=== PATIENT | male | born 1955 | race Caucasian/White ===

== ENCOUNTER → 2019-12-08 11:21 | Outpatient (CLI) | payer OTHER, SELFPAY ==
--- NOTE | ~2019-12-08 | XR_ITS ---
XR chest 2V 12/08/2019 11:37 Indication: Shortness of breath. Asthma. Procedure: 2 view chest Comparison: Comparison to multiple prior studies sequentially, with oldest reviewed study dated Andres rison to multiple prior studies sequentially, with oldest reviewed study dated 11/08/2015. . Findings: Ill-defined diffuse airspace disease throughout both lungs which appears chronic. Pleural e ffusion or pneumothorax. Enlarged central pulmonary arteries. Impression: 1: Stable diffuse bilateral airspace disease. Differential diagnosis includes atypical infections, sa rcoidosis, alveolar proteinosis and lymphoma. Reviewed, dictated and finalized at location B. IER Impression: 1: Stable diffuse bilateral airspace disease. Differential diagnosis includes a typical infections, sarcoidosis, alveolar proteinosis and lymphoma.
== END ==
PROVIDERS: PCP Internal Medicine Pulmonary Disease; Visit Provider Internal Medicine Pulmonary Disease
DX: J44.9 Chronic obstructive pulmonary disease, unspecified (principal); J45.909 Unspecified asthma, uncomplicated; R06.02 Shortness of breath; R91.8 Other nonspecific abnormal finding of lung field
CPT/HCPCS: 71046

== ENCOUNTER 2020-02-09 07:50 | Outpatient (RCR) | payer OTHER, SELFPAY ==
--- NOTE | 2020-02-02 09:11 | PM.IMHP ---
H&P: HPI History of Present Illness Chief complaint: T87.89 complication of amputation site, L89.899 Narrative: Terry Taveras is a 64 year old male presents to [facility] wound clinic for follow-up of right below-knee amputation wound stump infection, follow-up for left diabetic foot deformity and right wrist Charcot arthropathy. Patient developed redness and breakdown of the skin over the popliteal fossa right leg approximately 2 weeks ago. There had been some changes to his prosthetic and he had rubbing of the skin. His prosthetic inserts were adjusted and this has improved. He was started on mupirocin ointment as well as foam dressing covering for the wounds. He has noted improvement over the past week. No fever or chills. Left foot deformity with instability with weight-bearing and pain. Unable to use his fracture boot and custom ankle brace. Continues with the custom insert. Right wrist deformity unchanged. Still with weakness in the hand numbness on the palmar aspect and itching. States that pain is much better after the injection and with use of the splint. Review of Systems Constitutional: Constitutional: Denies fever(s) Eyes: Eyes: Denies blurry vision ENT: Reports Normal hearing present Cardiovascular: Cardiovascular: Denies chest pain and Denies dyspnea Respiratory: Respiratory: Denies dyspnea and Denies wheezing Gastrointestinal: Gastrointestinal: Denies abdominal pain Genitourinary: Genitourinary: Denies urinary urgency Musculoskeletal: Musculoskeletal: Reports as per HPI and Reports numbness Integumentary/Breasts: Skin/Breast: Denies changing lesions and Denies sores Neurologic: Reports Normal hearing present, Denies behavioral changes, Denies confusion, Reports numbness and Denies convulsions Psychiatric: Psychiatric: Denies behavioral changes, Denies confusion and Denies hallucinations Endocrine: Endocrine: Denies heat intolerance Hematologic/Lymphatic: Hematologic/Lymphatic: Denies easy bleeding Allergic/Immunologic: Allergic/Immunologic: Denies wheezing PMFSH Past Medical History Medical History 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 Below-knee amputation of right lower extremity Carpal tunnel syndrome on both sides Convex pes valgus of left foot COPD (chronic obstructive pulmonary disease) Dyspnea Prostate cancer Sleep apnea Vision loss Surgical History Surgical History Hx of BKA Hx of transurethral resection of prostate Family History Family History Father Hypertension Family history of diabetes mellitus in first degree relative Family history of emphysema Diabetes mellitus Family history of chronic obstructive pulmonary disease Sibling Family history of heart disease in male family member before age 55 Family history of cardiovascular disease, Onset Age: 50 Acute myocardial infarction, Onset Age: 50 Mother Family history of osteoarthritis Family history of arthritis Grandparent Family history of liver disease Family history of condition Family history of malignant neoplasm of cervix Family history of coronary artery disease Family history of cardiovascular disease Family history of malignant neoplasm Other Family history of alcoholism Social History Social History Smoking status: Former smoker Smoking end date: 10/04/10 Alcohol intake: current Substance use: unknown Gender identity (if verbalized by the patient): Male Spiritual care concerns: No Meds Home Medications and Allergies Home Medications Medication Instructions Recorded Confirmed Type albuterol sulfate [Ventolin HFA] 2 puff INHALATION QID PRN 08/22/19 08/22/19 History amlodipine 5 mg PO DAILY 08/22/19 08/22/19 History ch
[2020-02-02 13:00] VITALS: BMI 33.8
== END 2020-05-02 23:59 | disposition home or self-care (01) ==
LOC: ANHWOC 07:50
PROVIDERS: PCP Family Medicine; Visit Provider Family Medicine
DX: T87.89 Other complications of amputation stump (principal); L89.899 Pressure ulcer of other site, unspecified stage
CPT/HCPCS: 99212; G0463

== ENCOUNTER 2020-07-08 12:14 | Outpatient (CLI) | payer OTHER, SELFPAY ==
[2020-07-08 12:51] LABS: Basophils Absolute Auto 0.1 K/mm3 (0.0-0.1); Basophils Percent Auto 1.2 % (0.2-1.2); Eosinophils Absolute Auto 0.3 K/mm3 (0-0.3); Eosinophils Percent Auto 4.2 % (0-4.4); Hematocrit 36.3 % (42.0-52.0); Hemoglobin 12.3 g/dL (14.0-18.0); Immature Granulocyte Absolute 0.02 K/mm3 (0.00-0.031); Immature Granulocyte Percent A 0.3 % (0-0.5); Lymphocytes Absolute Auto 1.35 K/mm3 (0.9-3.2); Mean Corpuscular HGB Conc 33.9 g/dl (32-36); Mean Corpuscular Hemoglobin 27.8 pg (26-34); Mean Corpuscular Volume 82.1 fl (80-100); Mean Platelet Volume 9.9 fl (7.4-10.4); Monocytes Absolute Auto 0.4 K/mm3 (0.1-0.6); Monocytes Percent Auto 5.9 % (2.6-8.5); Neutrophils Absolute Auto 4.6 K/mm3 (1.3-6.7); Neutrophils Percent Auto 68.4 % (45.5-73.1); Platelet Count Result 207 k/mm3 (150-375); Red Blood Count 4.42 M/mm3 (4.6-6.20); Red Cell Distribution Width 12.7 % (11.5-14.5); White Blood Count 6.7 K/mm3 (4.5-10.0)
[2020-07-08 13:00] LABS: Alanine Aminotransferase 9 U/L (4-50); Albumin Level 3.9 g/dL (3.5-5.1); Alkaline Phosphatase 49 U/L (38-126); Anion Gap 5 mmol/L (8-16); Aspartate Amino Transferase 15 U/L (17-59); Bilirubin,Total 0.5 mg/dL (0.2-1.3); Blood Urea Nitrogen 10 mg/dL (9-20); Calcium 9.6 mg/dL (8.4-10.2); Carbon Dioxide 27 mmol/L (22-30); Chloride 105 mmol/L (98-107); Estimated Glomerular Filt Rate > 60; Glucose 97 mg/dL (75-110); Potassium 3.7 mmol/L (3.4-5.0); Sodium 137 mmol/L (137-145)
[2020-07-08 13:01] LABS: Hemoglobin A1C 5.7 % (<5.7)
== END 2020-07-08 12:15 | disposition home or self-care (01) ==
LOC: ANHSURGERY 12:17
PROVIDERS: PCP Family Medicine; Visit Provider Orthopaedic Surgery
DX: I27.20 Pulmonary hypertension, unspecified (principal); G98.8 Other disorders of nervous system; M14.83 Arthropathies in other specified diseases classified elsewhere, wrist; Z79.899 Other long term (current) drug therapy
CPT/HCPCS: 36415; 80053; 83036; 85025

== ENCOUNTER 2020-07-09 02:28 | Outpatient (CLI) | payer OTHER, SELFPAY ==
[2020-07-10 14:31] LABS: SARS-CoV-2 RNA PCR Negative
== END 2020-07-09 02:29 | disposition home or self-care (01) ==
LOC: ANHCOVIDDT 02:29
PROVIDERS: PCP Family Medicine; Visit Provider Orthopaedic Surgery
DX: Z01.812 Encounter for preprocedural laboratory examination (principal); Z20.828 Contact with and (suspected) exposure to other viral communicable diseases
CPT/HCPCS: 87635; C9803; U0003

== ENCOUNTER 2020-07-11 00:22 | Day surgery (SDC) | payer OTHER, SELFPAY ==
[2020-07-05 15:50] VITALS: BMI 32.1
--- NOTE | 2020-07-10 14:50 | WPDANESEPPF ---
Anes - Initial Pre Proc Eval Procedure: Operation Date: 07/11/20 07:30 Proposed Procedures p Right Wrist Arthrodesis - Alexis Cassidy MD Date/Time: 07/10/20 14:50 Surgeon: Alexis Cassidy MD Pre Op Diagnosis: Right Wrist Pain/ Arthropathy Patient Data Age: 65 Gender: M Height: 1.73 m Weight: 95.71 kg Allergies Allergy/AdvReac Type Severity Reaction Status Date / Time atropine Allergy Unknown EYE Verified 07/05/20 15:21 SWELLING Home Medications Medication Instructions Recorded Confirmed Type albuterol sulfate [Ventolin HFA] 2 puff INHALATION QID PRN 08/22/19 07/05/20 History amlodipine 5 mg PO DAILY 08/22/19 07/05/20 History cholecalciferol (vitamin D3) 2,000 unit PO DAILY 08/22/19 07/05/20 History [Vitamin D3] fluticasone furoate-vilanterol 1 inh INHALATION DAILY 08/22/19 07/05/20 History [Breo Ellipta] omeprazole 20 mg PO DAILY PRN 08/22/19 07/05/20 History tadalafil (pulm. hypertension) 40 mg PO BID 08/22/19 07/05/20 History [Adcirca] vitamin B complex 1 tablet PO DAILY 08/22/19 07/05/20 History bumetanide 1 mg tablet 1 mg PO DAILY #60 tablet 11/13/19 07/05/20 Rx spironolactone 50 mg tablet 50 mg PO DAILY #30 tablet 11/13/19 07/05/20 Rx leflunomide 20 mg tablet 20 mg PO DAILY #30 tablet 12/01/19 07/05/20 Rx guaifenesin 1,200 mg tablet, 1,200 mg PO BID PRN 12/05/19 07/05/20 History extended release 12 hr mupirocin 2 % topical ointment 1 applic TOPICAL BID #15 gm 01/26/20 07/05/20 Rx indomethacin 25 mg capsule 50 mg PO BID #120 cap 04/29/20 07/05/20 Rx gabapentin 300 mg PO QAM PRN 07/05/20 07/05/20 History trazodone 100 mg PO .QHS 07/05/20 07/05/20 History Patient hx anesthesia problems: none Family hx anesthesia problems: none PMFSH Past Medical History Medical History (Updated 07/10/20 @ 14:50 by Adam Grant DO) 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 Below-knee amputation of right lower extremity Carpal tunnel syndrome on both sides Convex pes valgus of left foot COPD (chronic obstructive pulmonary disease) Dyspnea Prostate cancer Pulmonary HTN Rheumatoid arthritis, seronegative, multiple sites (~2018) Sleep apnea Type 2 diabetes mellitus with diabetic neuropathy, with long-term current use of insulin Vision loss Surgical History Surgical History Hx of BKA Hx of transurethral resection of prostate Family History Family History Father Hypertension Family history of diabetes mellitus in first degree relative Family history of emphysema Diabetes mellitus Family history of chronic obstructive pulmonary disease Sibling Family history of heart disease in male family member before age 55 Family history of cardiovascular disease, Onset Age: 50 Acute myocardial infarction, Onset Age: 50 Mother Family history of osteoarthritis Family history of arthritis Grandparent Family history of liver disease Family history of condition Family history of malignant neoplasm of cervix Family history of coronary artery disease Family history of cardiovascular disease Family history of malignant neoplasm Other Family history of alcoholism Social History Social History Smoking packs per day: 1 Smoking cigarettes per day: 20.0 Years smoked: 30 Smoking pack-years: 30.00 Smoking status: Never smoker Smoking end date: 10/04/11 Alcohol intake: current Alcohol use details: ONE-TWO DRINKS PER MONTH [place] Substance use: current Living arrangements: with family Gender identity (if verbalized by the patient): Male Spiritual care concerns: No Anes - Eval Final PreProcedure Day of Procedure 07/10/20 14:50 Patient weight: obese Heart: regular rate and rhythm Lungs: clear to auscultation and normal air movement Airway: Mallampati scale class II
[2020-07-11] VITALS (7 sets, daily range): BP systolic 109–137; BP diastolic 66–96; PULSE 58–69; RESP 14–18; TEMP 36.2–36.7; O2SAT 94–99
--- NOTE | ~2020-07-11 | XR_ITS ---
EXAMINATION: XR surgery orthopedic EXAM DATE: 07/11/2020 09:22 INDICATION: Right wrist arthrodesis. TECHNIQUE: Fluoroscopy used during right wrist arthrodesis performed by Dr. Alexis Cassidy MD. T he DAP for this procedure was 0.0035 mGym2. FINDINGS: Images demonstrate an orthopedic plate with supporting screws extending across the carpal region, internally fixing the wrist from the radius to the 3rd metacarpal. Severe carpal arthritic ch denise noted. Correlate with procedure note. IMPRESSION: Fluoroscopy used during right wrist arthrodesis. Reviewed, dictated and finalized at location B.
[2020-07-11] MEDS: LACTATED RINGERS 1,000 ML 30 ML IV CONT ×2 (07:16→09:48)
[2020-07-11] MEDS: KETOROLAC 15 MG/ML VIAL (*BKC) IV PUSH (07:17)
[2020-07-11] MEDS: ACETAMINOPHEN 500 MG TABLET 1000 MG PO (07:17)
--- NOTE | 2020-07-11 07:28 | WPDHPUPDATE1 ---
History and Physical Update Update Date/Time: 07/11/20 07:28 History and Physical has been reviewed, including an updated exam of the patient. There are NO changes in the patient's condition. Covid test negative. Risks, benefits, and alternatives have been discussed and questions answered. Patient agrees to proceed with procedure.
--- NOTE | 2020-07-11 07:30 | PM.IMHP ---
H&P: HPI History of Present Illness Date/Time: 07/11/20 07:30 Chief complaint: Right Wrist Pain/ Arthropathy Narrative: Terry Taveras is a 65 year old maleWith diabetes and peripheral neuropathy who has deformity, swelling and pain of the right wrist. He has undergone conservative treatment bracing, cortisone injection, medical management and continues to have dysfunction and problems with the right hand which is the dominant hand. He presents now for operative treatment. Review of Systems Constitutional: Constitutional: Denies fever(s) Eyes: Eyes: Denies blurry vision ENT: Reports Normal hearing present Cardiovascular: Cardiovascular: Denies chest pain and Denies dyspnea Respiratory: Respiratory: Denies dyspnea and Denies wheezing Gastrointestinal: Gastrointestinal: Denies abdominal pain Genitourinary: Genitourinary: Denies urinary urgency Musculoskeletal: Musculoskeletal: Reports as per HPI and Reports numbness Integumentary/Breasts: Skin/Breast: Denies changing lesions and Denies sores Neurologic: Reports Normal hearing present, Denies behavioral changes, Denies confusion, Reports numbness and Denies convulsions Psychiatric: Psychiatric: Denies behavioral changes, Denies confusion and Denies hallucinations Endocrine: Endocrine: Denies heat intolerance Hematologic/Lymphatic: Hematologic/Lymphatic: Denies easy bleeding Allergic/Immunologic: Allergic/Immunologic: Denies wheezing PMFSH Past Medical History Medical History 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 Below-knee amputation of right lower extremity Carpal tunnel syndrome on both sides Convex pes valgus of left foot COPD (chronic obstructive pulmonary disease) Dyspnea Prostate cancer Pulmonary HTN Rheumatoid arthritis, seronegative, multiple sites (~2018) Sleep apnea Type 2 diabetes mellitus with diabetic neuropathy, with long-term current use of insulin Vision loss Surgical History Surgical History Hx of BKA Hx of transurethral resection of prostate Family History Family History Father Hypertension Family history of diabetes mellitus in first degree relative Family history of emphysema Diabetes mellitus Family history of chronic obstructive pulmonary disease Sibling Family history of heart disease in male family member before age 55 Family history of cardiovascular disease, Onset Age: 50 Acute myocardial infarction, Onset Age: 50 Mother Family history of osteoarthritis Family history of arthritis Grandparent Family history of liver disease Family history of condition Family history of malignant neoplasm of cervix Family history of coronary artery disease Family history of cardiovascular disease Family history of malignant neoplasm Other Family history of alcoholism Social History Social History Smoking packs per day: 1 Smoking cigarettes per day: 20.0 Years smoked: 30 Smoking pack-years: 30.00 Smoking status: Never smoker Smoking end date: 10/04/11 Alcohol intake: current Alcohol use details: ONE-TWO DRINKS PER MONTH [place] Substance use: current Living arrangements: with family Gender identity (if verbalized by the patient): Male Spiritual care concerns: No Meds Home Medications and Allergies Home Medications Medication Instructions Recorded Confirmed Type albuterol sulfate [Ventolin HFA] 2 puff INHALATION QID PRN 08/22/19 07/05/20 History amlodipine 5 mg PO DAILY 08/22/19 07/05/20 History cholecalciferol (vitamin D3) 2,000 unit PO DAILY 08/22/19 07/05/20 History [Vitamin D3] fluticasone furoate-vilanterol 1 inh INHALATION DAILY 08/22/19 07/05/20 History [Breo Ellipta] omeprazole 20 mg PO DAILY PRN 08/22/19 07/05/20 History t
[2020-07-11] MEDS: ceFAZolin 2 GM/D5W 50 ML 2 GM/50 ML BAG IVPB (07:35)
[2020-07-11 09:52] LABS: Glucose Point of Care 137 (65-105)
[2020-07-11] MEDS: fentaNYL CITRATE INJ (*CRX) 100 MCG/2 ML VIAL 25 MCG IV PUSH ×2 (10:00→10:09)
--- NOTE | 2020-07-11 10:04 | PM.PROC ---
Procedure Note - Detailed Date of procedure: 07/11/20 Pre-op diagnosis: Right Wrist Pain/ Arthropathy Post-op diagnosis: same Procedure performed: Right wrist arthrodesis Description of procedure: Indications: Patient is a 65-year-old gentleman with type 2 diabetes and severe peripheral neuropathy who has severe neuropathic arthropathy of the right wrist with volar dislocation. Patient has failed conservative treatment cortisone injection, bracing, activity modification and medical treatment. Presents for operative treatment. What was done: Patient identified in the preoperative holding. Informed consent given. Operative extremity marked. Patient received intravenous antibiotics. Patient brought to the operating room where underwent general anesthetic by anesthesia team. Positioned supine on operating room table. Time-out performed confirming the patient, site of the surgery and the plan. Right upper extremity prepped draped usual sterile surgical fashion using a ChloraPrep skin solution. Hand and wrist exsanguinated and an arm tourniquet inflated to 250 mmHg. Dorsal longitudinal incision made from the distal radius to the 3rd metacarpal with a 15 blade knife. Hemostasis controlled electrocautery. Dorsal wrist retinaculum incised in line with skin incision. Extensor pollicis identified and released. Capsule over the wrist incised in line with skin incision. Retractors placed. There was noted to be severe destruction of the intercarpal joints as well as volar subluxation /dislocation of the proximal carpal row. There is no attachment to the proximal carpal row bones and these were removed and denuded to be used as bone graft. The remaining joints were then prepared with osteotome and rongeur. Thorough irrigation with solution. Aloe matrix bone putty and the carpal bones were then prepared on the back table and packed into the radial carpal joint. A large cyst in the distal radius was also noted which was excised and removed with a curette. Bone putty was packed into this area as well. Alignment was checked with image intensification. Neutral plate was then used for compression and stabilization from the distal radius to the 3rd metacarpal. Image intensification confirmed alignment and placement of the hardware. Good compression. Wound was thoroughly irrigated antibiotic solution. Capsule repaired with 2 Vicryl suture. Subcutaneous tissue repaired with 3 Monocryl Interrupted suture and skin repaired with 4 O nylon running suture. Sterile dressing applied. The patient was then woken from anesthesia, extubated and taken to the recovery room in stable condition. All sponge, needle, instrument counts were correct at the end of the case. Implants: Accu Med neutral wrist fusion plate, 2.0 mm screws distal and 3.5 mm screws proximal Anesthesia: GLMA Surgeon: Alexis Cassidy MD Vice President Quality: 1st occupational therapy assistant Estimated blood loss (mL): 15 Tourniquet time (min): 100 Drains: No Packing: No Pathology: yes ( Wrist synovium and carpal bone for permanent section.) Complications: None Condition: stable Disposition: PACU Findings: severe arthropathy of the right wrist with dislocation and destruction of the proximal row including the lunate, scaphoid And triquetrum.
[2020-07-11] MEDS: oxyCODONE HCL (*CRX) 5 MG TAB IR PO (11:02)
== END 2020-07-11 11:29 | disposition home or self-care (01) ==
PROVIDERS: PCP Family Medicine; Visit Provider Orthopaedic Surgery
PROC: (CPT 25575; principal; 2020-07-11 07:30)
DX: M19.031 Primary osteoarthritis, right wrist (principal); E11.610 Type 2 diabetes mellitus with diabetic neuropathic arthropathy; J44.9 Chronic obstructive pulmonary disease, unspecified; I27.20 Pulmonary hypertension, unspecified; M06.9 Rheumatoid arthritis, unspecified; G47.30 Sleep apnea, unspecified; Z89.511 Acquired absence of right leg below knee; E66.9 Obesity, unspecified; Z68.32 Body mass index [BMI] 32.0-32.9, adult; Z85.46 Personal history of malignant neoplasm of prostate; Z79.4 Long term (current) use of insulin
CPT/HCPCS: 25800; 88309; A9270; C1713; J0690; J1885; J2405; J2704; J3010; J7120

== ENCOUNTER 2020-09-13 09:41 | Outpatient (CLI) | payer OTHER, SELFPAY ==
[2020-09-13 09:57] LABS: Basophils Absolute Auto 0.1 K/mm3 (0.0-0.1); Basophils Percent Auto 1.1 % (0.2-1.2); Eosinophils Absolute Auto 0.3 K/mm3 (0-0.3); Eosinophils Percent Auto 4.8 % (0-4.4); Hematocrit 36.6 % (42.0-52.0); Hemoglobin 12.2 g/dL (14.0-18.0); Immature Granulocyte Absolute 0.01 K/mm3 (0.00-0.031); Immature Granulocyte Percent A 0.2 % (0-0.5); Lymphocytes Absolute Auto 1.17 K/mm3 (0.9-3.2); Lymphocytes Percent Auto 20.8 % (18.3-44.2); Mean Corpuscular HGB Conc 33.3 g/dl (32-36); Mean Corpuscular Hemoglobin 27.5 pg (26-34); Mean Corpuscular Volume 82.4 fl (80-100); Monocytes Absolute Auto 0.4 K/mm3 (0.1-0.6); Monocytes Percent Auto 6.6 % (2.6-8.5); Neutrophils Absolute Auto 3.8 K/mm3 (1.3-6.7); Neutrophils Percent Auto 66.5 % (45.5-73.1); Platelet Count Result 243 k/mm3 (150-375); Red Blood Count 4.44 M/mm3 (4.6-6.20); White Blood Count 5.6 K/mm3 (4.5-10.0)
[2020-09-13 12:40] LABS: Alanine Aminotransferase 10 U/L (4-50); Albumin Level 4.1 g/dL (3.5-5.1); Alkaline Phosphatase 56 U/L (38-126); Anion Gap 9 mmol/L (8-16); Aspartate Amino Transferase 16 U/L (17-59); Bilirubin,Total 0.5 mg/dL (0.2-1.3); Blood Urea Nitrogen 14 mg/dL (9-20); Carbon Dioxide 25 mmol/L (22-30); Chloride 104 mmol/L (98-107); Cholesterol 164 mg/dL (0-200); Estimated Glomerular Filt Rate > 60; Glucose 113 mg/dL (75-110); HDL Direct 58 mg/dL; Potassium 4.2 mmol/L (3.4-5.0); Sodium 138 mmol/L (137-145); Triglycerides 70 mg/dL (<150)
[2020-09-13 12:52] LABS: LDL Cholesterol Direct 92 mg/dL
[2020-09-13 12:55] LABS: Hemoglobin A1C 5.5 % (<5.7)
[2020-09-13 13:10] LABS: Prostate Specific Antigen < 0.1 ng/mL (< OR = 4.0)
== END 2020-09-13 09:42 | disposition home or self-care (01) ==
PROVIDERS: PCP Family Medicine; Visit Provider Family Medicine
DX: R63.4 Abnormal weight loss (principal); E11.40 Type 2 diabetes mellitus with diabetic neuropathy, unspecified; Z79.4 Long term (current) use of insulin; E11.9 Type 2 diabetes mellitus without complications; N40.0 Benign prostatic hyperplasia without lower urinary tract symptoms
CPT/HCPCS: 36415; 80053; 80061; 83036; 84153; 84439; 84443; 85025; G0103

== ENCOUNTER 2020-11-27 14:17 | Outpatient (CLI) | payer OTHER, SELFPAY ==
--- NOTE | 2020-11-27 | ECHO_ITS ---
Patient Info Name: Terry Taveras Age: 65 years : 1955 Gender: Male Ht: 68 in Wt: 214 lbs BSA: 2.19 m2 HR: 69 bpm BP: 142 / 83 mmHg Heart Rhythm: Sinus Rhythm Technical Quality: Good Exam Date: 11/27/2020 2:47 PM Exam Location: [facility] Patient Status: Outpatient Admit Date: 11/27/2020 Staff Ordering Physician: Esperanza, Darek Ayers MD Wharf Tender: Lesa Hassan RDCS Attending Provider: Esperanza, Darek Ayers MD Referring Physician: Antonio CASTELLANO; Exam Type: CA echo doppler color flow Study Info Indications - hx/o pulm htn sob Complete two-dimentional, color flow and Doppler transthoracic echocardiogram is performed with agitated saline and with contrast to opacify the left ventricle and to improve the delineation of the left ventricle endocardial borders. Complete two-dimensional, color flow and Doppler transthoracic echocardiogram is performed. Summary 1. Complete two-dimensional, color flow and Doppler transthoracic echocardiogram is performed. 2. Left ventricular systolic function is normal, estimated at 60-65%. 3. There is mildly increased left ventricular wall thickness. 4. The left ventricular diastolic function is grade I diastolic dysfunction. 5. D shaped septum in systole and diastole consistent with RV pressure and/or volume overload. 6. Right ventricular chamber dimension is mildly enlarged. 7. Right ventricular systolic function is mild to moderately reduced. 8. Right atrial chamber dimension is severely enlarged. 9. There is mild tricuspid valve regurgitation. 10. Severe pulmonary hypertension, estimated pulmonary arterial systolic pressure is 79 mmHg. 11. Normal inferior vena cava with <50% collapse upon inspiration consistent with elevated right atrial pressure, 10 mmHg. 12. There is small pericardial effusion. Left Ventricle Left ventricular chamber dimension is normal. Left ventricular systolic function is normal, estimated at 60-65%. There is mildly increased left ventricular wall thickness. The left ventricular diastolic function is grade I diastolic dysfunction. D shaped septum in systole and diastole consistent with RV pressure and/or volume overload. Right Ventricle Right ventricular chamber dimension is mildly enlarged. Right ventricular systolic function is mild to moderately reduced. Left Atria Left atrial chamber dimension is mildly enlarged. Right Atria Right atrial chamber dimension is severely enlarged. Aortic Valve The aortic valve is not well visualized. There is no aortic valve stenosis. There is no aortic valve regurgitation. Pulmonic Valve The pulmonic valve is not well visualized. Mitral Valve The mitral valve has thickened leaflets. There is trace mitral valve regurgitation. The mitral valve annulus is mildly calcified. Tricuspid Valve The tricuspid valve leaflets are normal. There is mild tricuspid valve regurgitation. Severe pulmonary hypertension, estimated pulmonary arterial systolic pressure is 79 mmHg. Pericardium/Pleural The pericardium appears normal. There is small pericardial effusion. Inferior Vena Cava Normal inferior vena cava with <50% collapse upon inspiration consistent with elevated right atrial pressure, 10 mmHg. Aorta The aortic root size at the sinus of Valsalva is normal. There is mild-moderate aortic atherosclerosis. Left Ventricular Outflow Tract Name
== END 2020-11-27 14:18 | disposition home or self-care (01) ==
PROVIDERS: PCP Family Medicine; Visit Provider Internal Medicine Pulmonary Disease
DX: R05 Cough (principal); R06.02 Shortness of breath; I51.7 Cardiomegaly; I27.20 Pulmonary hypertension, unspecified
CPT/HCPCS: 93306

== ENCOUNTER 2020-12-03 10:54 | Outpatient (CLI) | payer OTHER, SELFPAY | END 2020-12-03 10:55 | disposition home or self-care (01) | LOC: ANHCOVIDVC 10:54 | PROVIDERS: PCP Family Medicine; Visit Provider Family Medicine | DX: Z23 Encounter for immunization (principal) | CPT/HCPCS: 0001A; 91300 ==

== ENCOUNTER 2020-12-24 10:53 | Outpatient (CLI) | payer OTHER, SELFPAY | END 2020-12-24 10:54 | disposition home or self-care (01) | LOC: ANHCOVIDVC 10:53 | PROVIDERS: PCP Family Medicine | DX: Z23 Encounter for immunization (principal) | CPT/HCPCS: 0002A; 91300 ==

== ENCOUNTER 2021-02-11 11:58 | Outpatient (RCR) | payer OTHER, SELFPAY ==
[2021-01-07 10:49] LABS: Hematocrit 32.7 % (42.0-52.0); Hemoglobin 10.8 g/dL (14.0-18.0); Mean Corpuscular Hemoglobin 28.1 pg (26-34); Mean Corpuscular Volume 84.9 fl (80-100); Mean Platelet Volume 9.5 fl (7.4-10.4); Platelet Count Result 216 k/mm3 (150-375); Red Blood Count 3.85 M/mm3 (4.6-6.20); Red Cell Distribution Width 13.6 % (11.5-14.5); White Blood Count 5.5 K/mm3 (4.5-10.0)
[2021-01-07 12:41] LABS: Alanine Aminotransferase 17 U/L (4-50); Albumin Level 4.1 g/dL (3.5-5.1); Alkaline Phosphatase 48 U/L (38-126); Anion Gap 4 mmol/L (8-16); Aspartate Amino Transferase 22 U/L (17-59); Bilirubin,Total 0.3 mg/dL (0.2-1.3); Blood Urea Nitrogen 15 mg/dL (9-20); Calcium 9.5 mg/dL (8.4-10.2); Carbon Dioxide 23 mmol/L (22-30); Chloride 107 mmol/L (98-107); Estimated Glomerular Filt Rate > 60; Glucose 128 mg/dL (75-110); Potassium 4.5 mmol/L (3.4-5.0); Sodium 134 mmol/L (137-145)
[2021-02-11 13:01] LABS: Hemoglobin 10.5 g/dL (14.0-18.0); Mean Corpuscular HGB Conc 31.8 g/dl (32-36); Mean Corpuscular Hemoglobin 28.5 pg (26-34); Mean Corpuscular Volume 89.4 fl (80-100); Mean Platelet Volume 9.7 fl (7.4-10.4); Platelet Count Result 227 k/mm3 (150-375); Red Blood Count 3.69 M/mm3 (4.6-6.20); Red Cell Distribution Width 13.4 % (11.5-14.5); White Blood Count 5.9 K/mm3 (4.5-10.0)
[2021-02-11 13:05] LABS: Alanine Aminotransferase 11 U/L (4-50); Albumin Level 3.9 g/dL (3.5-5.1); Anion Gap 6 mmol/L (8-16); Aspartate Amino Transferase 17 U/L (17-59); Bilirubin,Total 0.1 mg/dL (0.2-1.3); Blood Urea Nitrogen 11 mg/dL (9-20); Calcium 9.5 mg/dL (8.4-10.2); Carbon Dioxide 24 mmol/L (22-30); Chloride 103 mmol/L (98-107); Estimated Glomerular Filt Rate > 60; Glucose 131 mg/dL (75-110); Sodium 133 mmol/L (137-145)
[2021-02-11 13:06] LABS: Alkaline Phosphatase 48 U/L (38-126)
== END 2021-04-07 23:59 | disposition home or self-care (01) ==
LOC: ANHLAB 11:58
PROVIDERS: PCP Family Medicine; Visit Provider Internal Medicine Pulmonary Disease
DX: I27.20 Pulmonary hypertension, unspecified (principal); Z79.899 Other long term (current) drug therapy
CPT/HCPCS: 36415; 80053; 85027

== ENCOUNTER 2021-02-28 09:52 | Outpatient (CLI) | payer OTHER, SELFPAY ==
--- NOTE | ~2021-02-28 | US_ITS ---
EXAMINATION: US venous doppler [facility] DATE: 02/28/2021 10:38 INDICATION: Left lower limb edema. TECHNIQUE: Grayscale ultrasound images without and with compression and Doppler ultrasound images of the left lower extremity veins were obtained. COMPARISON: None. FINDINGS: The visualized portions of left common femoral vein, profunda (deep) femoral vein, femoral vein, popl iteal vein, peroneal veins, posterior tibial veins, and greater saphenous vein outflow are patent. IMPRESSION: 1. No deep venous thrombosis. Reviewed, dictated and finalized at location A.
== END 2021-02-28 09:53 | disposition home or self-care (01) ==
PROVIDERS: PCP Family Medicine; Visit Provider Internal Medicine Pulmonary Disease
DX: R60.9 Edema, unspecified (principal)
CPT/HCPCS: 93971

== ENCOUNTER 2021-03-07 12:53 | Outpatient (CLI) | payer OTHER, SELFPAY ==
[2021-03-07 13:16] LABS: Basophils Absolute Auto 0.1 K/mm3 (0.0-0.1); Basophils Percent Auto 1.1 % (0.2-1.2); Eosinophils Absolute Auto 0.4 K/mm3 (0-0.3); Eosinophils Percent Auto 6.7 % (0-4.4); Hematocrit 33.1 % (42.0-52.0); Immature Granulocyte Absolute 0.01 K/mm3 (0.00-0.031); Immature Granulocyte Percent A 0.2 % (0-0.5); Lymphocytes Percent Auto 17.6 % (18.3-44.2); Mean Corpuscular HGB Conc 33.2 g/dl (32-36); Mean Corpuscular Hemoglobin 28.3 pg (26-34); Mean Corpuscular Volume 85.1 fl (80-100); Mean Platelet Volume 9.5 fl (7.4-10.4); Monocytes Absolute Auto 0.4 K/mm3 (0.1-0.6); Monocytes Percent Auto 6.7 % (2.6-8.5); Neutrophils Absolute Auto 3.8 K/mm3 (1.3-6.7); Neutrophils Percent Auto 67.7 % (45.5-73.1); Platelet Count Result 224 k/mm3 (150-375); Red Blood Count 3.89 M/mm3 (4.6-6.20); White Blood Count 5.7 K/mm3 (4.5-10.0)
[2021-03-07 16:42] LABS: Alanine Aminotransferase 10 U/L (4-50); Albumin Level 3.9 g/dL (3.5-5.1); Alkaline Phosphatase 56 U/L (38-126); Anion Gap 11 mmol/L (8-16); Aspartate Amino Transferase 17 U/L (17-59); Bilirubin,Total 0.3 mg/dL (0.2-1.3); Blood Urea Nitrogen 12 mg/dL (9-20); Calcium 9.7 mg/dL (8.4-10.2); Carbon Dioxide 20 mmol/L (22-30); Chloride 106 mmol/L (98-107); Estimated Glomerular Filt Rate > 60; Glucose 118 mg/dL (75-110); Potassium 3.8 mmol/L (3.4-5.0); Sodium 137 mmol/L (137-145)
== END 2021-03-07 12:54 | disposition home or self-care (01) ==
PROVIDERS: PCP Family Medicine; Visit Provider Family Medicine
DX: I27.20 Pulmonary hypertension, unspecified (principal); Z51.81 Encounter for therapeutic drug level monitoring; E11.40 Type 2 diabetes mellitus with diabetic neuropathy, unspecified; Z79.4 Long term (current) use of insulin
CPT/HCPCS: 36415; 80053; 85025

== ENCOUNTER 2021-04-07 11:36 | Emergency (ER) | payer OTHER, SELFPAY ==
--- NOTE | ~2021-04-07 | XR_ITS ---
EXAMINATION: XR knee LT 3V DATE: 04/07/2021 13:03 INDICATION: Left knee pain TECHNIQUE: Three views of the left knee were obtained. COMPARISON: 10/15/2013 FINDINGS: There are changes of left total knee arthroplasty. Alignment is normal. No fracture or oste ochondral lesion. There is an infrapatellar laceration with associated soft tissue swelling anteriorl y No joint effusion/synovitis. Calcified atherosclerosis is noted. IMPRESSION: 1. Soft tissue swelling and laceration of the left knee without acute osseous abnormality. Reviewed, dictated and finalized at location A. IMPRESSION: 1. Soft tissue swelling and laceration of the left knee without acute osseous a bnormality.
--- NOTE | ~2021-04-07 | XR_ITS ---
EXAMINATION: XR finger 3rd RT min 2V INDICATION: Right third finger pain, initial encounter TECHNIQUE: Four views of the right third finger are obtained. COMPARISON: 06/11/2008 FINDINGS: There is an acute, traumatic, closed, oblique fracture at the palmar base of the third midd le phalanx which extends to the proximal interphalangeal joint. The fracture involves less than 50% o f the joint space. There is cortical irregularity at the dorsal base of the third distal phalanx. The re is mild to moderate osteoarthritis of the visualized interphalangeal joints. Changes of posterior fusion from radius to third metacarpal are noted. 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 IMPRESSION: 1. Acute intra-articular fracture at the palmar base of the third middle phalanx. 2. Cortical irregularity at the dorsal base of the third distal phalanx of unclear significance, poss ibly fracture. Correlate for tenderness at this site. Reviewed, dictated and finalized at location A. IMPRESSION: 1. Acute intra-articular fracture at the palmar base of the third middle phalan x. 2. Cortical irregularity at the dorsal base of the third distal phalanx of uncl ear significance, possibly fracture. Correlate for tenderness at this site.
[2021-04-07 12:14] VITALS: BP 127/77; PULSE 69; RESP 16; TEMP 37.2; O2SAT 97
--- NOTE | 2021-04-07 13:07 | ED.WOUNDLAC ---
HPI - Wound/Laceration General Chief Complaint: Wound/Laceration Stated Complaint: Laceration L leg Time Seen by Provider: 04/07/21 12:32 Source: patient Mode of arrival: ambulatory Limitations: no limitations History of Present Illness HPI narrative: Patient is a 66-year-old male complaining of a laceration on his left knee and right hand pain after he tripped and fell landing on his left knee and right hand. Patient denies any head, neck, back or any other extremity pain/injury. Related Data Home Medications Medication Instructions Recorded Confirmed Breo Ellipta 1 inh INHALATION DAILY 08/22/19 01/01/21 albuterol sulfate [Ventolin HFA] 2 puff INHALATION QID PRN 08/22/19 01/01/21 cholecalciferol (vitamin D3) 2,000 unit PO DAILY 08/22/19 01/01/21 [Vitamin D3] omeprazole 20 mg PO DAILY PRN 08/22/19 01/01/21 vitamin B complex 1 tablet PO DAILY 08/22/19 01/01/21 guaifenesin 1,200 mg tablet, 1,200 mg PO BID PRN 12/05/19 01/01/21 extended release 12 hr bumetanide 2 mg tablet 2 mg PO DAILY 04/01/21 sildenafil (pulm.hypertension) 20 20 mg PO TID 04/01/21 mg tablet Allergies Allergy/AdvReac Type Severity Reaction Status Date / Time atropine Allergy Unknown EYE Verified 04/01/21 09:36 SWELLING eye drops Allergy Unknown Uncoded 04/07/21 12:31 Review of Systems Review of Systems: All systems reviewed & are unremarkable except as noted in HPI and below Constitutional: Constitutional: Denies body ache(s), Denies chills, Denies excessive sweating, Denies fatigue, Denies fever(s), Denies headache(s), Denies lethargy, Denies malaise, Denies weakness and Denies weight loss Eyes: Eyes: Denies blurry vision, Denies change in vision and Denies loss of vision ENT: Denies dizziness, Denies ear discharge, Denies headache(s), Denies lip swelling, Denies epistaxis, Denies nasal congestion, Denies neck pain, Denies throat swelling and Denies tongue swelling Cardiovascular: Cardiovascular: Denies chest pain, Denies chest pain at rest, Denies chest pain with activity, Denies diaphoresis, Denies rapid heart rate, Denies edema, Denies irregular heart rhythm, Denies lightheadedness, Denies palpitations, Denies dyspnea and Denies dyspnea on exertion Respiratory: Respiratory: Denies chest congestion, Denies cough, Denies hemoptysis, Denies dyspnea and Denies dyspnea on exertion Gastrointestinal: Gastrointestinal: Denies abdominal pain, Denies melena, Denies hematochezia, Denies diarrhea, Denies nausea, Denies vomiting and Denies hematemesis Musculoskeletal: Musculoskeletal: Denies abnormal gait, Denies deformity, Denies joint swelling, Denies limited range of motion, Denies neck pain and Denies numbness Neurologic: Denies Abnormal speech present, Denies abnormal gait, Denies confusion, Denies dizziness, Denies headache(s), Denies focal weakness, Denies loss of vision, Denies numbness, Denies Other visual disturbances, Denies Sensory deficit (Neuro) and Denies weakness Psychiatric: Psychiatric: Denies confusion, Denies depression, Denies auditory hallucinations, Denies homicidal ideation and Denies suicidal ideation Endocrine: Endocrine: Denies cold intolerance, Denies excessive sweating, Denies fatigue, Denies heat intolerance and Denies palpitations Hematologic/Lymphatic: Hematologic/Lymphatic: Denies easy bleeding and Denies easy bruising Allergic/Immunologic: Allergic/Immunologic: Denies lip swelling, Denies throat swelling and Denies tongue swelling PMFSH Past Medical History Medical History Arthritis of wrist, left 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
== END 2021-04-07 15:10 | disposition home or self-care (01) ==
PROVIDERS: Emergency Provider Emergency Medicine; PCP Family Medicine
DX: S81.012A Laceration without foreign body, left knee, initial encounter (principal); S62.342A Nondisplaced fracture of base of third metacarpal bone, right hand, initial encounter for closed fracture; J44.9 Chronic obstructive pulmonary disease, unspecified; I27.20 Pulmonary hypertension, unspecified; E11.9 Type 2 diabetes mellitus without complications; Z79.4 Long term (current) use of insulin; Z87.891 Personal history of nicotine dependence; W01.0XXA Fall on same level from slipping, tripping and stumbling without subsequent striking against object, initial encounter
CPT/HCPCS: 12004; 73140; 73562; 99284

== ENCOUNTER 2021-04-09 08:52 | Outpatient (CLI) | payer OTHER, SELFPAY ==
--- NOTE | ~2021-04-09 | XR_ITS ---
EXAMINATION: XR thoracic spine min 4V EXAM DATE: 04/09/2021 09:16 INDICATION: M54.9 - Dorsalgia, unspecified mid back pain. TECHNIQUE: Frontal, bilateral oblique, and lateral projections of the thoracic spine as well as later al swimmers projection of the upper thoracic spine for interpretation. There is no prior study for c omparison. FINDINGS: There is moderate diffuse loss of mid thoracic disc height, mild to moderate at the lower t horacic spine. There are no acute fractures identified. The vertebral bodies are aligned in the AP di mension. The vertebral body heights are maintained. Paraspinal soft tissue is unremarkable. Moderate to severe disc disease at T12-L1 and L1-2. The facet joints are poorly visualized. IMPRESSION: Overall moderate thoracic disc disease. Reviewed, dictated and finalized at location B.
== END 2021-04-09 08:53 | disposition home or self-care (01) ==
LOC: ANHIMG 08:56
PROVIDERS: PCP Family Medicine; Visit Provider Family Medicine
DX: M47.814 Spondylosis without myelopathy or radiculopathy, thoracic region (principal)
CPT/HCPCS: 72074

== ENCOUNTER 2021-04-09 09:35 | Outpatient (CLI) | payer OTHER, SELFPAY ==
[2021-04-09 10:12] LABS: Hematocrit 32.4 % (42.0-52.0); Hemoglobin 10.5 g/dL (14.0-18.0); Mean Corpuscular HGB Conc 32.4 g/dl (32-36); Mean Corpuscular Hemoglobin 27.5 pg (26-34); Mean Corpuscular Volume 84.8 fl (80-100); Mean Platelet Volume 9.7 fl (7.4-10.4); Platelet Count Result 205 k/mm3 (150-375); Red Blood Count 3.82 M/mm3 (4.6-6.20); Red Cell Distribution Width 12.7 % (11.5-14.5); White Blood Count 6.3 K/mm3 (4.5-10.0)
[2021-04-09 13:43] LABS: Alanine Aminotransferase 12 U/L (4-50); Albumin Level 3.9 g/dL (3.5-5.1); Alkaline Phosphatase 55 U/L (38-126); Anion Gap 9 mmol/L (8-16); Aspartate Amino Transferase 18 U/L (17-59); Bilirubin,Total 0.3 mg/dL (0.2-1.3); Blood Urea Nitrogen 13 mg/dL (9-20); Calcium 9.3 mg/dL (8.4-10.2); Carbon Dioxide 22 mmol/L (22-30); Chloride 106 mmol/L (98-107); Estimated Glomerular Filt Rate > 60; Glucose 92 mg/dL (75-110); Potassium 4.4 mmol/L (3.4-5.0); Sodium 137 mmol/L (137-145)
== END 2021-04-09 09:36 | disposition home or self-care (01) ==
PROVIDERS: Internal Medicine Pulmonary Disease; PCP Family Medicine; Visit Provider Internal Medicine Hematology & Oncology
DX: I27.20 Pulmonary hypertension, unspecified (principal); Z51.81 Encounter for therapeutic drug level monitoring; Z79.899 Other long term (current) drug therapy
CPT/HCPCS: 36415; 80053; 85027

== ENCOUNTER 2021-05-14 07:47 | Outpatient (CLI) | payer OTHER, SELFPAY ==
--- NOTE | ~2021-05-14 | DEXA_ITS ---
Bone Density Report Name: Terry Taveras Age: 66 Sex: Male Ethnicity: White Date of : 1955 Indication: height loss; cancer; asthma or emphysema; Referring Provider: Sandro Foy Study: Bone densitometry was performed. Exam Date: May 14, 2021 Accession number: [id number] Bone Density: Region BMD T-score Z-score Classification AP Spine (L1-L4) 1.289 1.8 2.5 Normal Femoral Neck (Left) 0.937 0.1 1.1 Normal Total Hip (Left) 1.128 0.6 1.1 Normal Total Hip Bilateral Avg 1.090 0.4 0.9 Normal Femoral Neck (Right) 0.901 -0.2 0.8 Normal Total Hip (Right) 1.050 0.1 0.6 Normal World Health Organization criteria for BMD impression classify patients as: Normal (T-score at or above -1.0), Osteopenia (T-score between -1.0 and -2.5), or Osteoporosis (T-score at or below -2.5). 10-year Fracture Risk: FRAX not reported because: All T-scores for Spine Total, Hip Total, Femoral Neck at or above -1.0 Clinical Information Provided by Patient: Smokes Has used the following medications: Vitamin D Has the following medical conditions: Asthma or Emphysema, Cancer Patient maximum height was 72 No regular weight bearing exercise Does not regularly consume dairy products Drinks caffeinated beverages Impression: The patient has normal bone mass. The patient has risk factors, including: smoking. Discussion: BONE DENSITY IS ABOVE THE MINIMUM DESIRABLE LEVEL AT ALL SKELETAL SITES TESTED. This patient?s bone mineral density is above the minimum desirable level (T-score -1.0 or better) at all sites measured. The patient should follow a healthful lifestyle (good nutrition with adequate calcium and vitamin D, and appropriate weight-bearing exercise). Follow-Up: Consider repeating this study in 5 years or sooner if there is some new clinical indication. Reported by: BILLY on 05/14/2021 8:10:00 AM. Reviewed, dictated and finalized at location AFilemon GASPAR
== END 2021-05-14 07:48 | disposition home or self-care (01) ==
LOC: ANHIMG 07:49
PROVIDERS: PCP Family Medicine; Visit Provider Family Medicine
DX: R29.890 Loss of height (principal)
CPT/HCPCS: 77080

== ENCOUNTER 2021-11-18 09:35 | Outpatient (CLI) | payer OTHER, SELFPAY ==
[2021-11-18 10:08] LABS: Basophils Absolute Auto 0.1 K/mm3 (0.0-0.1); Basophils Percent Auto 1.3 % (0.2-1.2); Eosinophils Absolute Auto 0.3 K/mm3 (0-0.3); Eosinophils Percent Auto 6.4 % (0-4.4); Hematocrit 39.5 % (42.0-52.0); Hemoglobin 12.7 g/dL (14.0-18.0); Immature Granulocyte Absolute 0.02 K/mm3 (0.00-0.031); Immature Granulocyte Percent A 0.4 % (0-0.5); Lymphocytes Absolute Auto 1.18 K/mm3 (0.9-3.2); Lymphocytes Percent Auto 22.1 % (18.3-44.2); Mean Corpuscular HGB Conc 32.2 g/dl (32-36); Mean Corpuscular Hemoglobin 28.9 pg (26-34); Mean Corpuscular Volume 89.8 fl (80-100); Mean Platelet Volume 9.1 fl (7.4-10.4); Monocytes Absolute Auto 0.3 K/mm3 (0.1-0.6); Monocytes Percent Auto 6.4 % (2.6-8.5); Neutrophils Absolute Auto 3.4 K/mm3 (1.3-6.7); Neutrophils Percent Auto 63.4 % (45.5-73.1); Platelet Count Result 215 k/mm3 (150-375); Red Cell Distribution Width 12.6 % (11.5-14.5); White Blood Count 5.3 K/mm3 (4.5-10.0)
[2021-11-18 12:14] LABS: Prostate Specific Antigen < 0.1 ng/mL (< OR = 4.0)
[2021-11-18 12:44] LABS: Alanine Aminotransferase 13 U/L (4-50); Albumin Level 4.1 g/dL (3.5-5.1); Alkaline Phosphatase 60 U/L (38-126); Anion Gap 5 mmol/L (8-16); Aspartate Amino Transferase 30 U/L (17-59); Bilirubin,Total 0.6 mg/dL (0.2-1.3); Blood Urea Nitrogen 12 mg/dL (9-20); Calcium 9.5 mg/dL (8.4-10.2); Carbon Dioxide 24 mmol/L (22-30); Chloride 103 mmol/L (98-107); Estimated Glomerular Filt Rate > 60; Glucose 111 mg/dL (65-110); Potassium 4.2 mmol/L (3.4-5.0); Sodium 132 mmol/L (137-145)
== END 2021-11-18 09:36 | disposition home or self-care (01) ==
PROVIDERS: Internal Medicine Pulmonary Disease; PCP Family Medicine; Visit Provider Internal Medicine Hematology & Oncology
DX: Z12.5 Encounter for screening for malignant neoplasm of prostate (principal); C61 Malignant neoplasm of prostate; R79.89 Other specified abnormal findings of blood chemistry; D64.9 Anemia, unspecified
CPT/HCPCS: 36415; 80053; 84153; 85025; G0103

== ENCOUNTER 2022-04-08 14:28 | Outpatient (CLI) | payer OTHER, MEDICARE, SELFPAY ==
--- NOTE | 2022-04-08 | ECHO_ITS ---
Patient Info Name: Terry Taveras Age: 67 years : 1955 Gender: Male Ht: 68 in Wt: 225 lbs BSA: 2.25 m2 HR: 68 bpm BP: 140 / 79 mmHg Heart Rhythm: Sinus Rhythm Technical Quality: Fair Exam Date: 04/08/2022 3:14 PM Exam Location: [facility] Patient Status: Outpatient Admit Date: 04/08/2022 Staff Ordering Physician: Antonio, Darek Ayers MD [employer] Crusher Operator: Lesa Hassan RDCS Attending Provider: Antonio, Darek Ayers MD Referring Physician: Terry Salas MD; Exam Type: CA echo doppler color flow Study Info Indications - sob Complete two-dimensional, color flow and Doppler transthoracic echocardiogram is performed. Summary 1. Complete two-dimensional, color flow and Doppler transthoracic echocardiogram is performed. 2. Left ventricular chamber dimension is normal. 3. Left ventricular systolic function is normal, estimated at 65-70%. 4. Right ventricular chamber dimension is mildly enlarged. 5. Small amount of tricuspid regurgitation, jet velocity suggests PA pressure is approximately 51 mm Hg. Left Ventricle Left ventricular chamber dimension is normal. Left ventricular systolic function is normal, estimated at 65-70%. The left ventricular diastolic function is normal. Right Ventricle Right ventricular chamber dimension is mildly enlarged. Right ventricular systolic function is normal. Left Atria Left atrial chamber dimension is mildly enlarged. Right Atria Right atrial chamber dimension is normal. Aortic Valve The aortic valve is normal. Pulmonic Valve The pulmonic valve is normal. Mitral Valve The mitral valve has normal leaflets. The mitral valve annulus is mildly calcified. Tricuspid Valve The tricuspid valve leaflets are normal. There is trace tricuspid valve regurgitation. Moderate pulmonary hypertension, estimated pulmonary arterial systolic pressure is 52 mmHg. Pericardium/Pleural The pericardium appears normal. Aorta The aortic root size at the sinus of Valsalva is normal. Left Ventricular Outflow Tract Name Value Normal LVOT 2D LVOT Diameter 2.1 cm LVOT Doppler LVOT Peak Gradient 5 mmHg LVOT Mean Gradient 3 mmHg LVOT VTI 25 cm LVOT VTI/AV VTI Ratio 0.8 LVOT Stroke Volume 87 ml LVOT CO 17.2 l/min LVOT CI 7.6 l/min/m2 Pulmonic Valve Name Value Normal PV Doppler PV Peak Gradient 2 mmHg Mitral Valve Name Value Normal MV Doppler
== END 2022-04-08 14:29 | disposition home or self-care (01) ==
PROVIDERS: PCP Internal Medicine; Referring Provider Specialist; Visit Provider Internal Medicine Pulmonary Disease
DX: R06.02 Shortness of breath (principal)
CPT/HCPCS: 93306

== ENCOUNTER 2022-04-29 08:59 | Outpatient (CLI) | payer OTHER, MEDICARE, SELFPAY ==
--- NOTE | ~2022-04-29 | XR_ITS ---
EXAMINATION: XR foot LT min 3V DATE: 04/29/2022 10:05 INDICATION: Left foot pain, initial encounter TECHNIQUE: Dorsoplantar, lateral, and 2 oblique views of the left foot were obtained. COMPARISON: 10/27/2018 FINDINGS: There are acute fractures of the heads of the second, third, and fourth metatarsals. There is an acute fracture of the first proximal phalanx. There is advanced osteoarthritis in the midfoot. Calcified atherosclerosis is noted. There is dorsal soft tissue swelling of the foot. IMPRESSION: 1. Acute fracture is of the second through fourth metatarsal heads and the first proximal phalanx. Reviewed, dictated and finalized at location B. IMPRESSION: 1. Acute fracture is of the second through fourth metatarsal heads and the firs t proximal phalanx.
[2022-04-29 11:04] LABS: Hemoglobin A1C 5.5 % (<5.7)
[2022-04-29 12:49] LABS: Alanine Aminotransferase 9 U/L (6-50); Albumin Level 3.9 g/dL (3.5-5.1); Alkaline Phosphatase 71 U/L (38-126); Anion Gap 10 mmol/L (8-16); Aspartate Amino Transferase 17 U/L (17-59); Bilirubin,Total 0.5 mg/dL (0.2-1.3); Blood Urea Nitrogen 11 mg/dL (9-20); Calcium 9.4 mg/dL (8.4-10.2); Carbon Dioxide 22 mmol/L (22-30); Chloride 102 mmol/L (98-107); Cholesterol 135 mg/dL (0-200); Estimated Glomerular Filt Rate > 60; Glucose 94 mg/dL (65-110); HDL Direct 55 mg/dL; Potassium 4.1 mmol/L (3.4-5.0); Sodium 134 mmol/L (137-145); Triglycerides 75 mg/dL (<150)
[2022-04-29 12:59] LABS: LDL Cholesterol Direct 48 mg/dL
[2022-05-03 15:02] LABS: Testosterone Free 1.7 pg/mL (35.0-155.0); Testosterone Total 22 ng/dL (250-1100)
== END 2022-04-29 09:00 | disposition home or self-care (01) ==
PROVIDERS: PCP Internal Medicine; Visit Provider Internal Medicine
DX: I27.20 Pulmonary hypertension, unspecified (principal); I10 Essential (primary) hypertension; M62.84 Sarcopenia; Z86.39 Personal history of other endocrine, nutritional and metabolic disease
CPT/HCPCS: 36415; 73630; 80053; 80061; 83036; 84402; 84403

== ENCOUNTER 2022-10-30 12:30 | Outpatient (RCR) | payer OTHER, MEDICARE, SELFPAY ==
--- NOTE | 2022-09-21 10:16 | PTOPEVAL1 ---
Assessment and note entered by Emilee Garg, PT Evaluation Information Assessment Status Evaluation Diagnosis L LE lymphedema Onset March 2022 Reported Pain Level Pain Score Self Report Additional Pain Score Comments pain range of 0-6/10; L leg sore and hurts at ankle, more at end of day when leg swollen Assessment PT Clinical Summary Chad has the diagnosis of L LE lymphedema. He has multiple risk factors for lymphedema. With the evaluation, he has tissue changes over lower leg and ankle, with fibrotic tissue, discoloration of skin and bony changes over ankle with calcaneal eversion and flat foot. Skilled PT services are indicated for lymphedema care: multilayer compression wraps, intermittent compression pump, manual lymph drainage, education for self care, compression garment to obtain and alf management of lymphedema. Plan of Care Interventions Intermittent Compression,Lymphedema Compression Pump, Manual Lymph Drainage,Patient/Caregiver Education, Therapeutic Exercise PT Services Indicated Yes Treatment Frequency and 0-3x/wk for 7 weeks, due to availability of Duration therapist to start treatment These treatments will address the objective and functional deficits as defined above. The patient will be advanced safely and appropriately in order for the patient to progress towards his/her prior level of function. Additional exercises will be introduced and as well as a comprehensive home exercise program upon discharge, if needed, ?to ensure carryover of functional gains achieved in the clinic. This treatment plan has been reviewed and agreement upon by the patient.
--- NOTE | 2022-10-30 13:26 | PTOPDC ---
Assessment and note entered by Emilee Garg, PT Evaluation Information Assessment Status Discharge Diagnosis L LE lymphedema Onset March 2022 Subjective Information Terry reports: doing well with self massage, 1- 2 x/day; doing leg exercises; is putting lotion on legs 1-2 x/day, is helping him put his socks on due to tightness and hand troubles; (at end of session, indep with sock aid) ready to be finished with therapy; Reported Pain Level Pain Score 0: Self Report Assessment PT Clinical Summary Chad has received 8 PT sessions, for L LE lymphedema. He has made great progress during treatment: measurement of circumference of leg has decreased by 22 cm; does not have any fibrotic tissue over lower leg; skin color improved with only slight pinkish/ light red over medial lower leg; he has been educated on home exercises, self manual lymph drainage, compression garment and skin care. He has a compression garment for L lower leg: Mediven Plus, 20-30 mmHg compression calf high with silicone band, size IV, standard length, closed toe; He is indep with donning/doffing it with sock aid and rubber gloves. The goals were achieved. Discharge PT services. Plan of Care PT Services Indicated No
== END 2022-11-03 09:24 | disposition home or self-care (01) ==
LOC: ANHPT 12:30
PROVIDERS: PCP Internal Medicine; Visit Provider Internal Medicine
DX: R60.0 Localized edema (principal)
CPT/HCPCS: 29581; 97140; 97161

== ENCOUNTER 2022-11-07 09:58 | Outpatient (CLI) | payer OTHER, MEDICARE, SELFPAY ==
[2022-11-07 10:54] LABS: Basophils Absolute Auto 0.1 K/mm3 (0.0-0.1); Eosinophils Absolute Auto 0.3 K/mm3 (0-0.3); Eosinophils Percent Auto 5.7 % (0-4.4); Hematocrit 42.3 % (42.0-52.0); Hemoglobin 13.8 g/dL (14.0-18.0); Immature Granulocyte Absolute 0.02 K/mm3 (0.00-0.031); Immature Granulocyte Percent A 0.3 % (0-0.5); Lymphocytes Absolute Auto 1.02 K/mm3 (0.9-3.2); Lymphocytes Percent Auto 17.1 % (18.3-44.2); Mean Corpuscular HGB Conc 32.6 g/dl (32-36); Mean Corpuscular Hemoglobin 27.2 pg (26-34); Mean Corpuscular Volume 83.4 fl (80-100); Monocytes Absolute Auto 0.4 K/mm3 (0.1-0.6); Monocytes Percent Auto 6.7 % (2.6-8.5); Neutrophils Absolute Auto 4.1 K/mm3 (1.3-6.7); Neutrophils Percent Auto 69.2 % (45.5-73.1); Platelet Count Result 210 k/mm3 (150-375); Red Blood Count 5.07 M/mm3 (4.6-6.20); Red Cell Distribution Width 13.6 % (11.5-14.5)
[2022-11-07 11:06] LABS: Alanine Aminotransferase 15 U/L (6-50); Albumin Level 3.9 g/dL (3.5-5.1); Alkaline Phosphatase 69 U/L (38-126); Anion Gap 6 mmol/L (8-16); Aspartate Amino Transferase 17 U/L (17-59); Bilirubin,Total 0.5 mg/dL (0.2-1.3); Blood Urea Nitrogen 8 mg/dL (9-20); Calcium 8.9 mg/dL (8.4-10.2); Carbon Dioxide 24 mmol/L (22-30); Chloride 105 mmol/L (98-107); Estimated Glomerular Filt Rate > 60; Glucose 93 mg/dL (65-110); Sodium 135 mmol/L (137-145)
[2022-11-07 11:33] LABS: Prostate Specific Antigen 0.2 ng/mL (< OR = 4.0)
[2022-11-14 14:14] LABS: Testosterone Free 173.2 pg/mL (35.0-155.0); Testosterone Total 1170 ng/dL (250-1100)
== END 2022-11-07 09:59 | disposition home or self-care (01) ==
LOC: ANHLAB 10:02
PROVIDERS: PCP Internal Medicine; Visit Provider Internal Medicine
DX: E29.1 Testicular hypofunction (principal); Z79.890 Hormone replacement therapy; Z85.46 Personal history of malignant neoplasm of prostate
CPT/HCPCS: 36415; 80053; 84153; 84402; 84403; 85025

== ENCOUNTER 2023-03-04 13:37 | Outpatient (RCR) | payer OTHER, MEDICARE, SELFPAY ==
--- NOTE | 2023-03-04 16:02 | PTOPEVAL1 ---
Assessment and note entered by Sybil Mederos, PT, DPT Evaluation Information Assessment Status Evaluation Diagnosis low back pain Onset chronic; 1 month Subjective Information Pt reports chronic low back pain on and off for most of his life. 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 He states it is doing much better now. He has been taking Flexural and Tylenol to treat his pain. He states intermittently he will get a quick shooting pain when rolling over in bed but it goes away quickly. Reported Pain Level Pain Score 0: Self Report Assessment PT Clinical Summary Terry presents to therapy today for his initial evaluation with a diagnosis of low back pain. Today he demonstrates moderate decreased spinal mobility in all planes of motion. He does not demonstrate a movement bias but reports more of a stretch sensation on the L side. He reports his pain was likely an isolated occurrence and does not see the need to continue with regular therapy visits. He was educated on, and issued a HEP to complete daily. He will follow up in one month if needed to answer any questions he may have and to progress his HEP if needed. Plan of Care Interventions Manual Therapy,Neuro Re-education,Patient/ Caregiver Educati,Therapeutic Activities, Therapeutic Exercise PT Services Indicated Yes Treatment Frequency and 0-1/wk for 4 wks Duration These treatments will address the objective and functional deficits as defined above. The patient will be advanced safely and appropriately in order for the patient to progress towards his/her prior level of function. Additional exercises will be introduced and as well as a comprehensive home exercise program upon discharge, if needed, ?to ensure carryover of functional gains achieved in the clinic. This treatment plan has been reviewed and agreement upon by the patient.
--- NOTE | 2023-04-08 13:51 | PCPTNOTE ---
Patient did not show up for scheduled appointment this date. Called and spoke with patient, he states he meant to call but was in a hurry because his mom fell and is in the hospital. He states his back is a little better but still hurts. Plan to follow up with him in about a month.
--- NOTE | 2023-05-18 11:26 | PTOPDC ---
Assessment and note entered by Sybil Mederos, PT, DPT Evaluation Information Assessment Status Discharge - Pt Not Present Diagnosis low back pain Onset chronic; 1 month Subjective Information Pt no showed follow up appointment on 04/08/23. Called pt today to follow up and see if we needed to reschedule. Unable to leave voicemail. Assessment PT Clinical Summary Terry was evaluated on 03/04/23 and did not complete any treatment. He will be discharged at this time d/t no follow up with clinic. Plan of Care PT Services Indicated No
== END 2023-05-18 14:49 | disposition home or self-care (01) ==
LOC: ANHGOSHPT 13:37
PROVIDERS: PCP Internal Medicine; Visit Provider Nurse Practitioner
DX: M54.50 Low back pain, unspecified (principal)
CPT/HCPCS: 97110; 97161

== ENCOUNTER 2023-05-14 11:49 | Outpatient (CLI) | payer OTHER, MEDICARE, SELFPAY ==
[2023-05-14 18:13] LABS: Basophils Absolute Auto 0.1 K/mm3 (0.0-0.1); Basophils Percent Auto 1.4 % (0.2-1.2); Eosinophils Absolute Auto 0.3 K/mm3 (0-0.3); Eosinophils Percent Auto 5.5 % (0-4.4); Hematocrit 45.2 % (42.0-52.0); Hemoglobin 14.6 g/dL (14.0-18.0); Immature Granulocyte Absolute 0.01 K/mm3 (0.00-0.031); Immature Granulocyte Percent A 0.2 % (0-0.5); Lymphocytes Absolute Auto 1.32 K/mm3 (0.9-3.2); Lymphocytes Percent Auto 21.3 % (18.3-44.2); Mean Corpuscular HGB Conc 32.3 g/dl (32-36); Mean Corpuscular Hemoglobin 28.1 pg (26-34); Mean Corpuscular Volume 86.9 fl (80-100); Mean Platelet Volume 9.4 fl (7.4-10.4); Monocytes Absolute Auto 0.5 K/mm3 (0.1-0.6); Monocytes Percent Auto 7.9 % (2.6-8.5); Neutrophils Percent Auto 63.7 % (45.5-73.1); Platelet Count Result 231 k/mm3 (150-375); Red Cell Distribution Width 14.6 % (11.5-14.5); White Blood Count 6.2 K/mm3 (4.5-10.0)
[2023-05-14 18:33] LABS: Alanine Aminotransferase 13 U/L (6-50); Alkaline Phosphatase 44 U/L (38-126); Anion Gap 12 mmol/L (8-16); Aspartate Amino Transferase 26 U/L (17-59); Bilirubin,Total 0.5 mg/dL (0.2-1.3); Blood Urea Nitrogen 8 mg/dL (9-20); Carbon Dioxide 18 mmol/L (22-30); Chloride 101 mmol/L (98-107); Estimated Glomerular Filt Rate > 60; Glucose 124 mg/dL (65-110); Sodium 131 mmol/L (137-145)
[2023-05-14 19:00] LABS: Prostate Specific Antigen 0.5 ng/mL (< OR = 4.0)
[2023-05-19 16:33] LABS: Testosterone Free 253.4 pg/mL (35.0-155.0); Testosterone Total 1355 ng/dL (250-1100)
== END 2023-05-14 11:50 | disposition home or self-care (01) ==
LOC: ANHGOSHLAB 11:50
PROVIDERS: PCP Internal Medicine; Visit Provider Internal Medicine
DX: E29.1 Testicular hypofunction (principal); Z85.46 Personal history of malignant neoplasm of prostate; Z79.890 Hormone replacement therapy
CPT/HCPCS: 36415; 80053; 84153; 84402; 84403; 85025

== ENCOUNTER → 2023-05-17 10:53 | Outpatient (CLI) | payer OTHER, MEDICARE, SELFPAY ==
--- NOTE | ~2023-05-17 | XR_ITS ---
EXAMINATION: XR chest 2V DATE: 05/17/2023 11:15 INDICATION: Cough. TECHNIQUE: Frontal and lateral views of the chest were obtained on 3 radiographs. COMPARISON: Chest 2 views 12/08/2019, chest CT 03/12/2017 FINDINGS: Again seen are innumerable small nodules in the lungs with sparing of the lung bases. No pl eural effusion or pneumothorax. The heart size is normal. IMPRESSION: 1. Chronic diffuse lung disease. The differential diagnosis includes chronic infection, sarcoid, sili cosis, and hypersensitivity pneumonitis. Reviewed, dictated and finalized at location A. IMPRESSION: 1. Chronic diffuse lung disease. The differential diagnosis includes chronic in fection, sarcoid, silicosis, and hypersensitivity pneumonitis.
== END ==
PROVIDERS: PCP Internal Medicine; Visit Provider Internal Medicine
DX: R05.9 Cough, unspecified (principal); J98.4 Other disorders of lung; R91.8 Other nonspecific abnormal finding of lung field
CPT/HCPCS: 71046

== ENCOUNTER 2023-05-31 14:09 | Outpatient (CLI) | payer OTHER, MEDICARE, SELFPAY ==
--- NOTE | ~2023-05-31 | XR_ITS ---
Supine and upright views of the abdomen Clinical history: Hematuria Findings: Bowel gas pattern is nonspecific. No evidence for obstruction or free air. No abnormal mass lesion or calcification is seen. There is S-shaped scoliosis of the spine with diffuse degenerative spondylosis. Impression: No etiology for hematuria clearly identified. Degenerative change in the spine with scoliosis, as above. Reviewed, dictated and finalized at [facility]. Impression: No etiology for hematuria clearly identified. Degenerative change in the spine with scoliosis, as above.
--- NOTE | ~2023-05-31 | CT_ITS ---
EXAMINATION: CT abdomen pelvis wo/w con DATE: 05/31/2023 15:01 INDICATION: Gross hematuria. TECHNIQUE: Computed tomography (CT) of the abdomen and pelvis was performed without and with intraven ous contrast using a total of 130 mL Omnipaque-350 intravenous contrast with a double-bolus technique for simultaneous opacification of the renal parenchyma and renal collecting system. Automated exposu re control and iterative reconstruction technique were employed. The dose-length product was 2244.49 mGy-cm. COMPARISON: CT abdomen and pelvis 10/11/15 FINDINGS: The lungs demonstrate innumerable 1 mm nodules with sparing of the costophrenic angles without change . No pleural effusion. The heart size is normal. There are coronary artery calcifications. There is a trace pericardial effusion. The central pulmonary arteries are enlarged, consistent with pulmonary a rterial hypertension. The gallbladder is contracted and contains gallstones. The spleen, pancreas, ad renal glands, and kidneys are normal. There is no urolithiasis. The ureters are well opacified and ar e normal. There is a 3.6 x 1.6 cm mass in the posterior bladder. There are brachytherapy seeds in the prostate. There is calcified atherosclerosis of the aorta and many of the other arteries. There is d iverticulosis of the colon without evidence of diverticulitis. There are no dilated loops of bowel. T he appendix is normal. There are no pathologically enlarged lymph nodes. There is no free intraperito joseph fluid. There is a left inguinal hernia containing fat. There is mild thoracic spondylosis and se aung lumbar spondylosis. Lumbar levoscoliosis is noted. IMPRESSION: 1. 3.6 x 1.6 cm mass in the bladder, which may be a hematoma or urothelial carcinoma. 2. Chronic diffuse lung disease. The differential diagnosis includes chronic hypersensitivity pneumon itis, respiratory bronchiolitis, Langerhans cell histiocytosis, pneumoconiosis, and old infection. Reviewed, dictated and finalized at location E. IMPRESSION: 1. 3.6 x 1.6 cm mass in the bladder, which may be a hematoma or urothelial carc inoma. 2. Chronic diffuse lung disease. The differential diagnosis includes chronic hy persensitivity pneumonitis, respiratory bronchiolitis, Langerhans cell histiocy tosis, pneumoconiosis, and old infection.
== END 2023-05-31 14:10 | disposition home or self-care (01) ==
PROVIDERS: PCP Internal Medicine; Visit Provider Nurse Practitioner Adult Health
DX: R31.0 Gross hematuria (principal)
CPT/HCPCS: 74018; 74178; Q9967

== ENCOUNTER 2023-06-11 13:22 | Outpatient (CLI) | payer OTHER, MEDICARE, SELFPAY ==
--- NOTE | ~2023-06-11 | PE_ITS ---
EXAMINATION: PET_PETPSMAST_PT DATE: 06/11/2023 15:43 INDICATION: Prostate cancer. TECHNIQUE: 8.896 mCi of piflufolastat F-18 was administered intravenously. Low dose computed tomograp hy (CT) images were acquired from the base of the brain to the proximal thighs for attenuation correc tion and anatomic localization. Automated exposure control was employed. Dose-length product (DLP) wa s 606 mGy-cm. Positron emission tomography (PET) images were acquired in the same distribution. COMPARISON: CT abdomen and pelvis 05/31/2023, chest CT 03/12/2017 FINDINGS: Head/neck: There are no pathologically enlarged lymph nodes. There is severe cervical spondylosis. Chest: The lungs demonstrate chronic innumerable 1 mm nodules in the right upper lung predominance. T here is an 8 mm nodule in left lung upper lobe without increased activity, stable from 03/12/2017, like ly benign. No pleural effusion. The heart size is normal. There are coronary artery calcifications. N o pericardial effusion. The central pulmonary arteries are enlarged, consistent with pulmonary artery hypertension. There is mild bilateral gynecomastia. There is severe thoracic spondylosis. Abdomen/pelvis/proximal thighs: The liver is normal. There are gallstones in the gallbladder, which i s normal in size. The spleen, pancreas, adrenal glands, and kidneys are normal. There is diverticulos is of the colon without evidence of diverticulitis. There are no dilated loops of bowel. There is a l eft inguinal hernia containing fat. There is calcified atherosclerosis of the aorta and many of the o ther arteries. There are no pathologically enlarged lymph nodes. There is a left external iliac node measuring 10 x 7 mm with maximum SUV of 9.5. There is no free intraperitoneal fluid. The prostate is normal in size. The maximum SUV in the prostate is 3.0. There are brachytherapy seeds in the prostate . There is severe lumbar spondylosis. IMPRESSION: 1. Normal-sized left external iliac lymph node with increased activity, consistent with metastatic di sease. 2. Chronic diffuse lung disease with an upper lung predominance. The differential diagnosis includes chronic mycobacterial or fungal disease, sarcoidosis, and silicosis or coal workers pneumoconiosis. Reviewed, dictated and finalized at location A. IMPRESSION: 1. Normal-sized left external iliac lymph node with increased activity, consist ent with metastatic disease. 2. Chronic diffuse lung disease with an upper lung predominance. The differenti al diagnosis includes chronic mycobacterial or fungal disease, sarcoidosis, and silicosis or coal workers pneumoconiosis.
== END 2023-06-11 13:23 | disposition home or self-care (01) ==
PROVIDERS: PCP Internal Medicine; Visit Provider Nurse Practitioner Adult Health
DX: C61 Malignant neoplasm of prostate (principal); J84.9 Interstitial pulmonary disease, unspecified
CPT/HCPCS: 78815; A9595

== ENCOUNTER 2023-08-06 09:43 | Outpatient (CLI) | payer OTHER, MEDICARE, SELFPAY ==
--- NOTE | ~2023-08-06 | NM_ITS ---
EXAMINATION: NM bone scan whole body DATE: 08/06/2023 13:22 INDICATION: Prostate cancer TECHNIQUE: 22.1 mCi Tc-99m HDP was administered intravenously. Delayed whole-body scintigrams were o btained. COMPARISON: [facility] PET CT dated 06/11/2023 and right foot radiographs dated 06/02/2023. FINDINGS: Status post right [id number] amputation. There is likely degenerative increased uptake in the rig ht mid and hindfoot where there is pes planus and moderate to severe secondary polyarticular osteoart hritis on prior radiographs. Additional likely degenerative joint centered uptake at the bilateral wr ists. Mild S-shaped scoliosis of the lumbar and lower thoracic spine. There is increased disc centere d uptake at multiple levels in the lower thoracic spine and more prominently at the left side of T12- L1, all with corresponding severe disc height loss and associated degenerative endplate changes on th e prior PET study and without evident increased PSMA activity to suggest metastatic disease. No other suspicious foci of abnormal bone uptake to suggest metastatic disease. IMPRESSION: 1. No bone lesion suspicious for metastatic disease. Reviewed, dictated and finalized at location A.
== END 2023-08-06 09:44 | disposition home or self-care (01) ==
PROVIDERS: PCP Internal Medicine; Visit Provider Radiology Radiation Oncology
DX: C61 Malignant neoplasm of prostate (principal)
CPT/HCPCS: 78306; A9503

== ENCOUNTER 2023-08-09 15:32 | Outpatient (CLI) | payer OTHER, MEDICARE, SELFPAY ==
--- NOTE | ~2023-08-09 | XR_ITS ---
EXAMINATION: XR humerus LT DATE: 08/09/2023 16:19 INDICATION: Assess metallic foreign body prior to planned MRI TECHNIQUE: Internal and axillary rotated views of the left humerus were obtained. COMPARISON: None FINDINGS: Alignment is normal. No fracture mild polyarticular osteoarthritis at the left elbow, acromioclavicul ar and glenohumeral joints. There is a 5 x 2 mm metallic foreign body projecting over the soft tissue s anterior to the mid humeral diaphysis, likely within the biceps brachii muscle. Soft tissues are o therwise unremarkable. IMPRESSION: 1. 5 x 2 mm metallic foreign body projecting over the mid left biceps brachii muscle. Reviewed, dictated and finalized at location A. TTING REPRESENTATIVE IMPRESSION: 1. 5 x 2 mm metallic foreign body projecting over the mid left biceps brachii m arianna.
--- NOTE | ~2023-08-09 | MR_ITS ---
EXAMINATION: MR pelvis wo/w con INDICATION: Prostate cancer TECHNIQUE: 3D Axial T2 Cube, Axial 2D FIESTA, Coronal SSFSE ARC, Axial and Coronal 2D FIESTA FatSat, Axial T2 FS, Axial SSFSE BH ARC, Axial 3D DualEcho BH, Axial SSFSE-IR Raudel, Axial DWI b=600, pre and d ynamic postcontrast Axial LAVA ARC, WATER:POST Cor LAVA-FLEX COMPARISON: PET/CT, 06/11/2023; CT, 05/23/2023, 10/11/2015 CONTRAST: Multihance, 19 cc FINDINGS: Changes of prior transurethral prostatectomy are noted. There appears to be an intact fat p geovanny between the rectum and prostate. There are no pathologically enlarged pelvic lymph nodes. There is moderate osteoarthritis of the right hip. There are no dilated loops of bowel. No abnormal enhance ment is present after contrast administration. 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 IMPRESSION: 1. No evidence of metastatic disease. Reviewed, dictated and finalized at location L. 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
== END 2023-08-09 15:33 | disposition home or self-care (01) ==
PROVIDERS: PCP Internal Medicine; Visit Provider Radiology Radiation Oncology
DX: C61 Malignant neoplasm of prostate (principal); S40.852A Superficial foreign body of left upper arm, initial encounter
CPT/HCPCS: 72197; 73060; A9577

== ENCOUNTER 2023-08-30 10:10 | Outpatient (CLI) | payer OTHER, MEDICARE, SELFPAY ==
[2023-08-30 12:56] LABS: Prostate Specific Antigen < 0.1 ng/mL (< OR = 4.0)
== END 2023-08-30 10:11 | disposition home or self-care (01) ==
LOC: ANHGOSHLAB 10:14
PROVIDERS: PCP Internal Medicine
DX: C61 Malignant neoplasm of prostate (principal)
CPT/HCPCS: 36415; 84153

== ENCOUNTER 2023-12-03 13:19 | Outpatient (CLI) | payer OTHER, MEDICARE, SELFPAY ==
[2023-12-03 18:55] LABS: Basophils Absolute Auto 0.1 K/mm3 (0.0-0.1); Basophils Percent Auto 1.1 % (0.2-1.2); Eosinophils Absolute Auto 0.4 K/mm3 (0-0.3); Eosinophils Percent Auto 6.3 % (0-4.4); Hematocrit 39.5 % (42.0-52.0); Hemoglobin 13.2 g/dL (14.0-18.0); Immature Granulocyte Absolute 0.01 K/mm3 (0.00-0.031); Immature Granulocyte Percent A 0.2 % (0-0.5); Lymphocytes Absolute Auto 0.88 K/mm3 (0.9-3.2); Lymphocytes Percent Auto 15.8 % (18.3-44.2); Mean Corpuscular HGB Conc 33.4 g/dl (32-36); Mean Corpuscular Hemoglobin 30.1 pg (26-34); Mean Corpuscular Volume 90.2 fl (80-100); Mean Platelet Volume 9.4 fl (7.4-10.4); Monocytes Absolute Auto 0.4 K/mm3 (0.1-0.6); Monocytes Percent Auto 7.2 % (2.6-8.5); Neutrophils Absolute Auto 3.9 K/mm3 (1.3-6.7); Neutrophils Percent Auto 69.4 % (45.5-73.1); Platelet Count Result 222 k/mm3 (150-375); Red Blood Count 4.38 M/mm3 (4.6-6.20); Red Cell Distribution Width 12.5 % (11.5-14.5); White Blood Count 5.6 K/mm3 (4.5-10.0)
[2023-12-03 19:21] LABS: Alanine Aminotransferase 14 U/L (6-50); Alkaline Phosphatase 51 U/L (38-126); Anion Gap 6 mmol/L (8-16); Aspartate Amino Transferase 29 U/L (17-59); Bilirubin,Total 0.6 mg/dL (0.2-1.3); Blood Urea Nitrogen 14 mg/dL (9-20); Calcium 9.6 mg/dL (8.4-10.2); Carbon Dioxide 24 mmol/L (22-30); Chloride 101 mmol/L (98-107); Estimated Glomerular Filt Rate > 60; Glucose 129 mg/dL (65-110); Potassium 4.8 mmol/L (3.4-5.0); Sodium 131 mmol/L (137-145)
[2023-12-03 19:46] LABS: Hemoglobin A1C 5.2 % (<5.7)
[2023-12-03 19:53] LABS: Prostate Specific Antigen < 0.1 ng/mL (< OR = 4.0)
== END 2023-12-03 13:20 | disposition home or self-care (01) ==
LOC: ANHGOSHLAB 13:22
PROVIDERS: PCP Internal Medicine; Visit Provider Internal Medicine
DX: E29.1 Testicular hypofunction (principal); Z85.46 Personal history of malignant neoplasm of prostate; Z79.890 Hormone replacement therapy; Z86.39 Personal history of other endocrine, nutritional and metabolic disease; I10 Essential (primary) hypertension; C77.5 Secondary and unspecified malignant neoplasm of intrapelvic lymph nodes; C61 Malignant neoplasm of prostate
CPT/HCPCS: 36415; 80053; 83036; 84153; 85025

== ENCOUNTER 2024-02-04 08:20 | Outpatient (CLI) | payer OTHER, MEDICARE, SELFPAY ==
--- NOTE | 2024-02-04 | ECHO_ITS ---
Patient Info Name: Terry Taveras Age: 68 years : 1955 Gender: Male Ht: 66 in Wt: 220 lbs BSA: 2.20 m2 HR: 65 bpm BP: 157 / 98 mmHg Heart Rhythm: Sinus Rhythm Technical Quality: Poor Exam Date: 02/04/2024 8:54 AM Exam Location: Echo Lab Patient Status: Outpatient Admit Date: 02/04/2024 Staff Ordering Physician: ARNOLDO HOWELL M.D., Md Sorter/Assay Tech: Ji Pace RDCS Attending Provider: ARNOLDO HOWELL M.D., Md Referring Physician: DANTE GREEN; Exam Type: CA echo dop color flow w con Study Info Indications - pul htn Complete two-dimensional, color flow and Doppler transthoracic echocardiogram is performed with contrast to opacify the left ventricle and to improve the deliniation of the left ventricle endocardial borders. Contrast/Agitated Saline Contrast/Ag. Saline: Definity Amount: 3.00 ml Reason for Poor Study: poor echocardiographic windows Summary 1. Definity contrast administered improved wall motion interpretation. 2. Left ventricular chamber dimension is normal. 3. Left ventricular systolic function is normal, estimated at 60-65%. 4. The left ventricular diastolic function is normal. 5. E/e' 9 is minimally elevated. 6. Left atrial chamber dimension is mildly enlarged. 7. There is mild aortic valve sclerosis. 8. No pulmonary hypertension, estimated pulmonary arterial systolic pressure is 26 mmHg. Left Ventricle E/e' 9 is minimally elevated. Definity contrast administered improved wall motion interpretation. Left ventricular chamber dimension is normal. Left ventricular systolic function is normal, estimated at 60-65%. The left ventricular diastolic function is normal. Right Ventricle Right ventricular systolic function is normal and with normal TAPSE 3.7 cm. Right ventricular chamber dimension is normal. Left Atria Left atrial chamber dimension is mildly enlarged. Right Atria Right atrial chamber dimension is normal. Aortic Valve The aortic valve is trileaflet. There is mild aortic valve sclerosis. There is no aortic valve stenosis. There is no aortic valve regurgitation. Pulmonic Valve There is no pulmonic regurgitation. Mitral Valve There is no mitral valve stenosis. There is no mitral valve regurgitation. Tricuspid Valve There is no tricuspid valve regurgitation. No pulmonary hypertension, estimated pulmonary arterial systolic pressure is 26 mmHg. Pericardium/Pleural There is no pericardial effusion. Inferior Vena Cava Normal inferior vena cava with >50% collapse upon inspiration consistent with normal right atrial pressure, 5 mmHg. Aorta The aortic root size at the sinus of Valsalva is normal. Left Ventricular Outflow Tract Name Value Normal LVOT 2D LVOT Diameter 2.16 cm LVOT Doppler LVOT Peak Gradient 4 mmHg LVOT Mean Gradient 2 mmHg LVOT VTI 23.08 cm LVOT VTI/AV VTI Ratio 0.49 LVOT Stroke Volume 84.67 ml LVOT CO 4.60 l/min LVOT CI 2.09 L/min/m2 Pulmonic Valve
[2024-02-04] MEDS: PERFLUTREN LIPID MICROSPHERES 1.5 ML VIAL DILUTED TO 10 ML TOTAL VOLUME IV PUSH (09:30)
--- NOTE | 2024-02-04 09:49 | IVDEFINITY ---
Prior to administration of IV Definity the patient was educated on the risks and benefits of the imaging enhancing agent including potential adverse side effects. The patient verbalized understanding. Allergies were verified. No exclusion criteria were identified and at least one of the following inclusion criteria were met: 1) physician request, 2) patient technically difficult to image (per the [place] Society of Echocardiography guidelines of two or more segments not discernable within the apical view), or 3) questionable left ventricular function. ?
--- NOTE | 2024-02-04 14:31 | WPDPFTINT ---
PFT Procedure Performed PFT Procedure Performed Plethysmography (Lung Vol) Diffusing Cap (DLCO) Flow Vol Loop Spirometry w/o Bronchodil PFT Interpretation This is a pulmonary function test with spirometry, plethysmography and diffusing capacity. The test was performed and results interpreted in accordance with the 2019 and 2005 ATS/ERS Task Force guidelines respectively using the Global Lung Function Initiative-2012 reference equations. Patient demonstrated good effort and cooperation. Reproducibility criteria were met. The quality of the spirometry maneuver was Grade A. Findings: Spirometry: There is decreased maximal expiratory airflow at low lung volumes with concave expiratory flow tracing. The contour the inspiratory flow tracing is normal. The FVC is 2.88 L, 75% predicted. The FEV1 is 1.80 L, 61% predicted. The FEV1: FVC ratio 62%. Plethysmography: The total lung capacity is 5.45 L, 87% predicted. The functional residual capacity is 3.02 L, 93% predicted. The residual volume is 2.18 L, 101% predicted. Diffusing capacity: The diffusing capacity unadjusted for hemoglobin and carboxyhemoglobin is 11.7, 46% predicted. The diffusing capacity adjusted for alveolar volume is 2.79, 65% predicted. Impression: There is a moderate obstructive abnormality. The lung volumes are normal. The diffusing capacity unadjusted for hemoglobin and carboxyhemoglobin is moderately decreased and remains mildly decreased when adjusted for alveolar volume. There are no prior studies for comparison
== END 2024-02-04 08:21 | disposition home or self-care (01) ==
LOC: ANHCARD 08:21
PROVIDERS: PCP Internal Medicine
DX: I27.20 Pulmonary hypertension, unspecified (principal)
CPT/HCPCS: 94375; 94726; 94729; C8929; Q9957

== ENCOUNTER 2024-03-07 13:41 | Outpatient (CLI) | payer OTHER, MEDICARE, SELFPAY ==
--- NOTE | ~2024-03-07 | CT_ITS ---
CT Scan of the Chest without Contrast: Clinical Indication: Emphysema Technique: Contiguous sections were acquired throughout the chest without intravenous contrast. Dose reduction technique was used on this scan by utilizing automated exposure control and iterative recon struction technique. The dose-length product (DLP) was 215.37 mGy-cm. Findings: There is no evidence of any significant mediastinal, hilar or axillary lymphadenopathy. Coronary evaristo ry calcifications are present. There is no evidence of pleural or pericardial effusion. There is diffuse reticulonodular interstitial prominence, relatively sparing the lung bases with mild extensive probable groundglass opacity as well. Probable subpleural sparing. There is a 9 mm left ap ical pulmonary nodule medially (axial image 16). There is a 4 mm pleural-based nodule at the anterior left upper lobe (axial image 38). Images through the upper abdomen reveal severe degenerative disc disease at T12-L1. Impression: Diffuse upper lobe predominant interstitial disease. Diagnostic considerations could include sarcoid, hypersensitivity pneumonitis, pneumoconiosis. Correlate clinically. 9 mm left upper lobe pulmonary nodule. According to Fleischner Society criteria, recommend 3 month fo llow-up CT. PET/CT or attempted tissue sampling would be additional considerations at this time. Reviewed, dictated and finalized at [facility]. Impression: Diffuse upper lobe predominant interstitial disease. Diagnostic considerations could include sarcoid, hypersensitivity pneumonitis, pneumoconiosis. Correlate clinically. 9 mm left upper lobe pulmonary nodule. According to Fleischner Society criteria , recommend 3 month follow-up CT. PET/CT or attempted tissue sampling would be additional considerations at this time.
== END 2024-03-07 13:42 | disposition home or self-care (01) ==
PROVIDERS: PCP Internal Medicine
DX: R91.1 Solitary pulmonary nodule (principal); J84.9 Interstitial pulmonary disease, unspecified; J43.9 Emphysema, unspecified; I27.20 Pulmonary hypertension, unspecified; Z87.891 Personal history of nicotine dependence
CPT/HCPCS: 71250

== ENCOUNTER 2024-06-09 10:08 | Outpatient (CLI) | payer MEDICARE, OTHER, SELFPAY ==
[2024-06-14 15:28] LABS: Testosterone Free 2.8 pg/mL (35.0-155.0); Testosterone Total 29 ng/dL (250-1100)
== END 2024-06-09 10:09 | disposition home or self-care (01) ==
LOC: ANHGOSHLAB 10:11
PROVIDERS: PCP Internal Medicine; Visit Provider Urology
DX: C61 Malignant neoplasm of prostate (principal)
CPT/HCPCS: 36415; 84402; 84403

== ENCOUNTER 2024-06-19 12:30 | Outpatient (CLI) | payer OTHER, MEDICARE, SELFPAY ==
[2024-06-19 19:16] LABS: Prostate Specific Antigen < 0.1 ng/mL (< OR = 4.0)
== END 2024-06-19 12:31 | disposition home or self-care (01) ==
PROVIDERS: PCP Internal Medicine; Visit Provider Urology
DX: C61 Malignant neoplasm of prostate (principal)
CPT/HCPCS: 36415; 84153

== ENCOUNTER 2024-08-28 07:47 | Outpatient (CLI) | payer OTHER, MEDICARE, SELFPAY | END 2024-08-28 07:48 | disposition home or self-care (01) | LOC: ANHAUDIO 07:49 | PROVIDERS: PCP Internal Medicine; Visit Provider Nurse Practitioner | DX: H90.3 Sensorineural hearing loss, bilateral (principal) | CPT/HCPCS: 92557; 92567 ==

== ENCOUNTER 2024-10-19 08:20 | Outpatient (CLI) | payer OTHER, MEDICARE, SELFPAY ==
--- NOTE | ~2024-10-19 | CT_ITS ---
EXAMINATION: CT facial bones w con DATE: 10/19/2024 08:52 INDICATION: Nasal polyps. TECHNIQUE: Computed tomography (CT) of the facial bones and maxillofacial region was performed with 7 5 mL Omnipaque 350 intravenous contrast. Automated exposure control and iterative reconstruction tech PiperScout were employed. The dose-length product was 655.86 mGy-cm. COMPARISON: Chest CT 05/31/2012 FINDINGS: There is near complete opacification of the frontal sinuses and bilateral ethmoid sinuses. There is moderate mucosal thickening in the maxillary and sphenoid sinuses. There is sclerosis and er osions of many of the sinus hall. There is mucosal thickening in the nasal cavity. The nasal septum is at midline. There is occlusion of the ostiomeatal units. There is a patent secondary ostium of the left maxillary sinus. IMPRESSION: 1. Chronic pansinusitis and nasal cavity mucosal thickening, which may be sinonasal polyposis. Reviewed, dictated and finalized at location A. S/MARKETING IMPRESSION: 1. Chronic pansinusitis and nasal cavity mucosal thickening, which may be sinon kathleen polyposis.
[2024-10-19 08:49] LABS: Estimated Glomerular Filt Rate > 60
--- OUTSIDE RECORDS SUMMARY | 2024-10-26 01:34 | XMS_ITS | Patient Health Summary ---
Author Organization [facility] Address [address] [place] [address] Care Team Providers Care Volunteer Services Manager Name Role Phone Christine Foy MD Primary Care Provider [phone] [facility],non-owned Affiliates and Associated Physician Practices is amultiple site organization consisting of ambulatory clinics and hospital sitesin [place], [place], [place] and [place]. This disclosure is being madepursuant to the Care Everywhere program and may not contain all information available regarding this patient. Last updated 18.[facility] [employer] Allergies * Atropine(Other) -Low Criticality Active Problems Problem Noted Date Diagnosed Date Allergic rhinitis 06/29/2012 Resolved Problems Problem Noted Date Diagnosed Date Resolved Date Acute sinusitis 07/18/2015 01/31/2018 Social History Tobacco Use Types Packs/Day Years Used Date Smoking Tobacco: Former Cigarettes Q uit: 03/04/2012 Smokeless Tobacco: Never Alcohol Use Standard Drinks/Week Comments Yes 0 (1 standard drink = 0.6 oz pur e alcohol) Sex and Gender Information Value Date Recorded Sex Assigned at Not on file Gender Identity Not on file Sexual Orientation Not on file Care Teams Volunteer Services Manager Relationship Specialty Start Date End Date Christine Foy MD [address] [place] [address] PCP - General 06/16/18
--- OUTSIDE RECORDS SUMMARY | 2024-10-26 01:34 | XMS_ITS | Referral Summary ---
Author Organization [facility] Address [address] [place] [address] Care Team Providers Care Primary School Teacher Librarian Name Role Phone Christine Foy MD Primary Care Provider [phone] Source Comments [facility],non-[facility] Affiliates and Associated Physician Practices is amultiple site organization consisting of ambulatory clinics and hospital sitesin [place], [place], [place] and [place]. This disclosure is being madepursuant to the Care Everywhere program and may not contain all information available regarding this patient. Last updated 18.[facility] Allergies Active Allergy Reactions Criticality Noted Date Comments Atropine Other Low 06/29/2012 Allergic to home atropine eye drops Active Problems Problem Noted Date Diagnosed Date [...] on file Sexual Orientation Not on file Plan of Treatment Not on file Care Teams Primary School Teacher Librarian Relationship Specialty Start Date End Date Christine Foy MD [address] [place] [id number] [facility] - General 06/16/18
--- OUTSIDE RECORDS SUMMARY | 2024-10-26 01:34 | XMS_ITS | Clinical Summary ---
Author Organization [facility] [employer] Address [address] [place] [address] Care Team Providers Care Pouncing Lathe Operator Name Role Phone Christine Foy MD Primary Care Provider [phone] Source Comments [facility],non-[facility] Affiliates and Associated Physician Practices is amultiple site organization consisting of ambulatory clinics and hospital sitesin [place], [place], [place] and [place]. This disclosure is being madepursuant to the Care Everywhere program and may not contain all information available regarding this patient. Last updated 18.[facility] [employer] Allergies Active Allergy Reactions Criticality Noted Date Comments Atropine Other Low 06/29/2012 Allergic to home atropine eye drops Active Problems Problem Noted Date Diagnosed Date Allergic rhinitis 06/29/2012 Resolved Problems Problem Noted Date Diagnosed Date Resolved Date Acute sinusitis 07/18/2015 01/31/2018 Family History Medical History Relation Name Comments Alcohol abuse Brother Heart Disease Brother Hypertension Brother Alcohol abuse Father Cancer Father Diabetes Father Glaucoma Father Hearing Loss Father Lung Disease Father Arthritis - Rheumatoid Mother Osteoporosis Mother Relation Name Status Comments Brother Father Mother Social History Tobacco Use Types Packs/Day Years Used Date Smoking Tobacco: Former Cigarettes Q uit: 03/04/2012 Smokeless Tobacco: Never Alcohol Use Standard Drinks/Week Comments Yes 0 (1 standard drink = 0.6 oz pur e alcohol) Sex and Gender Information Value Date Recorded Sex Assigned at Not on file Gender Identity Not on file Sexual Orientation Not on file Plan of Treatment Health Maintenance Due Date Last Done Comments COLOGUARD (AGES 45-75) - COL ON CA SCREENING 1955 COLON MONITORING 1955 COLONOSCOPY - COLON CA SCREENING 1955 CT COLONOGRAPHY - COLON CA SCREENING 1955 Colorectal Cancer Screening 1955 FIT - COLON CA SCREENING 1955 FLEX SIG - COLON CA SCREENING 1955 LIPID TESTING 1955 HEPATITIS C SCREENING 03/16/1975 DTAP/TDAP/TD VACCINES (1 - Tdap) 1976 PNEUMOCOCCAL VACCINE 50+ (1 of 1 - PCV) 2007 ZOSTER VACCINE (1 of 2) 2007 AAA SCREENING 2022 COVID-19 VACCINE (1 - 2023-2 5 season) 2024 INFLUENZA VACCINE (#1) 2024 DEPRESSION SCREENING 10/04/2024 Respiratory Syncytial Virus (RSV) Vaccine Pt: or over 60 yrs (1 - 1-dose 75+ series) 2032 HEPATITIS B VACCINE Aged Out No longe r eligible based on patient's age to complete this topic HIB VACCINE Aged Out No longer eligi ble based on patient's age to complete this topic HPV VACCINE Aged Out No longer eligi ble based on patient's age to complete this topic MENINGOCOCCAL (Group B) VACCINE Aged Out No longer eligible based on patient's age to complete this topic MENINGOCOCCAL VACCINE Aged Out No marely deuce eligible based on patient's age to complete this topic Care Teams Pouncing Lathe Operator Relationship Specialty Start Date End Date Christine Foy MD [address] [place] [id number] PCP - General 06/16/18
--- OUTSIDE RECORDS SUMMARY | 2024-10-26 01:35 | XMS_ITS | Clinical Summary ---
Author Organization [facility] Address [address] [place] [address]. [place], [place] [address] [place] [address] Care Team Providers Care Tow Motor Operator Name Role Phone Unavailable Primary Care Provider Unavailabl e Social History Tobacco Use Types Packs/Day Years Used Date Smoking Tobacco: Never Assessed Sex and Gender Information Value Date Recorded Sex Assigned at Not on file Legal Sex Male 5:29 PM CDT Gender Identity Not on file Sexual Orientation Not on file Plan of Treatment Health Maintenance Due Date Last Done Comments Colorectal Cancer Screening Colonoscopy (10 Years) 1955 Hepatitis C 1975 DTaP, Tdap and Td Vaccines ( 1 - Tdap) 1976 Zoster Vaccines (1 of 2) 2007 Pneumococcal Vaccine: 65+ Ye ars (1 of 1 - PCV) 2022 COVID-19 Vaccine (1 - 2023-2 5 season) 2024 Influenza Adult (#1) 2024 RSV Immunization or 60+ Years (1 - 1-dose 75+ series) 2032 Meningococcal Vaccine Aged Out No marely deuce eligible based on patient's age to complete this topic RSV Immunizations Under 20 Months Aged Out No longer eligible based on patient's age to complete this topic
--- OUTSIDE RECORDS SUMMARY | 2024-10-26 01:35 | XMS_ITS | Clinical Summary ---
Author Organization [facility] [address] Address [address] [place] [address] Care Team Providers Care Language Asst Name Role Phone Christine Foy MD Primary Care Provider [phone] Allergies Active Allergy Reactions Criticality Noted Date Comments Homatropine Unknown 06/06/2020 Medications spironolactone (ALDACTONE) 50 mg tablet take 1 tablet (50MG) by oral route every day 0 3 Active gabapentin (NEURONTIN) 300 mg capsule take 1 capsule (300MG) by oral route 3 times every day 0 3 Active omeprazole 20 mg tablet,delayed release (DR/EC) take 1 by Oral route every day 0 3 Active b complex vitamins (VITAMINS B COMPLEX) tablet take 1 by Oral route every day 0 3 Active amLODIPine (NORVASC) 5 mg tablet take 1 tablet (5MG) by oral route every day 0 3 Active cholecalciferol (VITAMIN D3) 1,000 unit capsule take 1 by Oral route every day 0 3 Active Ventolin HFA 90 mcg/actuation inhaler USE 2 (TWO) PUFFS EVERY 4 HOURS NEEDED 0 Active traZODone (DESYREL) 50 mg tablet TAKE 1 OR 2 TABLETS BY MOUTH AT BEDTIME NEEDED FOR INSOMNIA 0 Active guaiFENesin 1,200 mg tablet extended release 12hr Take 1 tablet by mouth 2 (two) times a day as needed Active ambrisentan (LETAIRIS) 5 mg tablet 2 Active sildenafiL, pulm.hypertensi on, (REVATIO) 20 mg tablet 2 Active Trelegy Ellipta 100-62.5-25 mcg inhaler Inhale 1 puff daily 4 Active Xhance 93 mcg/actuation aerosol breath activated SPRAY 2 SPRAYS INTRANASALLY EVERY 12 HOURS INTO EACH NOSTRIL 4 Active azelastine (ASTELIN) 137 mcg (0.1 %) nasal spray ADMINISTER 2 SPRAYS INTO EACH NOSTRIL EVERY 12 HOURS AIM BACK/UP/OUT 4 Active Active Problems Problem Noted Date Diagnosed Date Pulmonary hypertension 06/06/2020 Disorder of lung 02/25/2011 Surgical History Surgery Date Site/Laterality Comments OTHER SURGICAL HISTORY 10/04/2002 - 10/03/2003 : ACL repari - R. OTHER SURGICAL HISTORY 10/04/2002 - 10/03/2003 : L. medial menicus repair TOTAL KNEE ARTHROPLASTY 10/04/2012 - 10/03/2013 Left Medical History Medical History Date Comments Hx Other Medical Sleep Apnea, CP AP Hx Other Medical 2008 Pul. HTN Asthma Asthma Hx Other Medical Metabolic syn Cardiomyopathy (HCC) H/O prostate cancer COPD (chronic obstructive pulmonary disease) (HC C) Arthritis Family History Medical History Relation Name Comments Heart attack Brother 2 Myocardial Infa rction; COPD Father Other Father Poor health; brain tumor Father Other Mother [place]; Heart attack Paternal Grandfather Myocard ial Infarction; Cause of : Myocardial Infarction Relation Name Status Comments Brother 1 Alive Brother 2 (Age 36) Brother 3 Alive Brother 4 Alive Father (Age 85) Mother Alive Paternal Grandfather (Age 40) Sister Alive Social History Tobacco Use Types Packs/Day Years Used Date Smoking Tobacco: Former Cigarettes Smokeless Tobacco: Never Alcohol Use Standard Drinks/Week Comments Yes 0 (1 standard drink = 0.6 oz pur e alcohol) Sex and Gender Information Value Date Recorded Sex Assigned at Not on file Legal Sex Male 6:47 AM CHANGER FIXER Gender Identity Not on file Sexual Orientation Not on file Obstetrics History Last Filed Vital Signs Vital Sign Reading Time Taken Comments Blood Pressure 114/64 03/21/2024 3:02 PM CDT Pulse 67 03/21/2024 3:02 PM CDT Temperature - - Respiratory Rate - - Oxygen Saturation 93% 03/21/2024 3:02 PM CDT Inhaled Oxygen Concentration - - Weight 103.4 kg (228 lb) 03/21/2024 3:02 PM CDT Height 168.9 cm (5' 6.5 ) 03/21/2024 3:02 PM CDT Body Mass Index 36.25 03/21/2024 3:02 PM CDT Plan of Treatment Health Maintenance Due Date Last Done Comments Colon Cancer Screening-Colonoscopy 1955 Depression Screening 1955 Fall Risk Assessment 1955 Hepatitis C Screening 1955 Prostate Cancer Screening-PSA 1955 DTaP/Tdap/Td Vaccine (1 - Tdap) 1968 Hepatitis B Screening 1975 Zoster Vaccine (1 of 2) 2007 Abdominal Aortic Aneurysm (AAA) Screen 2022 Pneumococcal vaccine 65+ (1 of 1 - PCV) 2022 Well Visit 65+ 2022 Influenza Vaccine (#1) 2024 08/02/2018 Insurance [facility] [place] [address] MEDICARE MEDICARE [facility] Care Teams Language Asst Relationship Specialty Start Date End Date Christine Foy MD [address] [place] [address] PCP - General 11/11/12
--- OUTSIDE RECORDS SUMMARY | 2024-10-26 01:35 | XMS_ITS | Referral Summary ---
Author Organization [facility] [address] Address [address] [place] [address] Care Team Providers Care Catheter Builder Name Role Phone Christine Foy MD Primary Care Provider [phone] Allergies Active Allergy Reactions Criticality Noted Date [...] Pulmonary hypertension 06/06/2020 Disorder of lung 02/25/2011 Social History Tobacco Use Types Packs/Day Years Used Date Smoking Tobacco: Former Cigarettes Smokeless Tobacco: Never Alcohol Use Standard Drinks/Week Comments Yes 0 (1 standard drink = 0.6 oz pur e alcohol) Sex and Gender Information Value Date Recorded Sex Assigned at Not on file Legal Sex Male 6:47 AM 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
== END 2024-10-19 08:21 | disposition home or self-care (01) ==
PROVIDERS: PCP Internal Medicine
DX: J33.9 Nasal polyp, unspecified (principal)
CPT/HCPCS: 70487; Q9967

== ENCOUNTER 2024-10-23 11:27 | Outpatient (CLI) | payer OTHER, MEDICARE, SELFPAY ==
[2024-10-23 13:21] LABS: Basophils Absolute Auto 0.1 K/mm3 (0.0-0.1); Basophils Percent Auto 0.8 % (0.2-1.2); Eosinophils Absolute Auto 0.3 K/mm3 (0-0.3); Eosinophils Percent Auto 5.3 % (0-4.4); Hematocrit 33.1 % (42.0-52.0); Hemoglobin 9.8 g/dL (14.0-18.0); Immature Granulocyte Absolute 0.02 K/mm3 (0.00-0.031); Immature Granulocyte Percent A 0.3 % (0-0.5); Lymphocytes Absolute Auto 1.15 K/mm3 (0.9-3.2); Lymphocytes Percent Auto 18.9 % (18.3-44.2); Mean Corpuscular HGB Conc 29.6 g/dl (32-36); Mean Corpuscular Hemoglobin 22.8 pg (26-34); Mean Platelet Volume 9.7 fl (7.4-10.4); Monocytes Absolute Auto 0.4 K/mm3 (0.1-0.6); Monocytes Percent Auto 6.9 % (2.6-8.5); Neutrophils Absolute Auto 4.1 K/mm3 (1.3-6.7); Neutrophils Percent Auto 67.8 % (45.5-73.1); Platelet Count Result 263 k/mm3 (150-375); Red Cell Distribution Width 15.6 % (11.5-14.5); White Blood Count 6.1 K/mm3 (4.5-10.0)
[2024-10-23 13:45] LABS: Alanine Aminotransferase 10 U/L (6-50); Albumin Level 4.1 g/dL (3.5-5.1); Alkaline Phosphatase 59 U/L (38-126); Anion Gap 8 mmol/L (4-12); Aspartate Amino Transferase 34 U/L (17-59); Bilirubin,Total 0.7 mg/dL (0.2-1.3); Blood Urea Nitrogen 16 mg/dL (9-20); Calcium 9.8 mg/dL (8.4-10.2); Carbon Dioxide 21 mmol/L (22-30); Chloride 104 mmol/L (98-107); Cholesterol 154 mg/dL (0-200); Estimated Glomerular Filt Rate > 60; Glucose 98 mg/dL (65-110); HDL Direct 77 mg/dL; Magnesium 2.1 mg/dL (1.6-2.3); Sodium 133 mmol/L (137-145); Triglycerides 81 mg/dL (<150)
[2024-10-23 13:47] LABS: Potassium 4.4 mmol/L (3.4-5.0)
[2024-10-23 13:52] LABS: Burr Cells 1+; Platelet Estimate Adequate (Adequate); Schistocytes None Seen
[2024-10-23 13:53] LABS: Hypochromasia 1+; Microcytosis 1+ (NORMAL); Ovalocytes 1+
[2024-10-23 13:57] LABS: LDL Cholesterol Direct 66 mg/dL
[2024-10-23 14:17] LABS: Hemoglobin A1C 5.4 % (<5.7)
[2024-10-23 16:07] LABS: Ferritin 5.37 ng/mL (11.1-264)
[2024-10-24 21:12] LABS: Folic Acid > 20.0 ng/mL (2.76->20)
--- OUTSIDE RECORDS SUMMARY | 2024-10-26 13:02 | XMS_ITS | Clinical Summary ---
Author Organization [facility] Address [address] [place] [address]. [place], [place] [id number] [place] [address] Care Team Providers Care Wildlife Veterinarian Name Role Phone Unavailable Primary Care Provider [...]
--- OUTSIDE RECORDS SUMMARY | 2024-10-26 13:02 | XMS_ITS | Patient Health Summary ---
Author Organization [facility] Address [address] [place] [place] [address] Care Team Providers Care Project Administrator Name Role Phone Christine Foy MD Primary Care Provider [phone] Note from [facility],non-owned Affiliates and Associated Physician Practices is amultiple site organization consisting of ambulatory clinics and hospital sitesin [place], [place], [place] and [place]. This disclosure is being madepursuant to the Care Everywhere program and may not contain all information available regarding this patient. Last updated 18.[facility] [employer] Allergies * Atropine(Other) -Low Criticality Active Problems [...] Sexual Orientation Not on file Care Teams Project Administrator Relationship Specialty Start Date End Date Christine Foy MD [address] [place] [address] PCP - General 06/16/18
--- OUTSIDE RECORDS SUMMARY | 2024-10-26 13:02 | XMS_ITS | Referral Summary ---
Author Organization [facility] Address [address] [place] [address] Care Team Providers Care Draw Fire Operator Name Role Phone Christine Foy MD Primary Care Provider [phone] Source Comments [facility],non-[facility] Affiliates and Associated Physician Practices is amultiple site organization consisting of ambulatory clinics and hospital sitesin [place], [place], [place] and [place]. This disclosure is being madepursuant to the Care Everywhere program and may not contain all information available regarding this patient. Last updated 18.[facility] Allergies Active Allergy Reactions Criticality Noted Date [...] of Treatment Not on file Care Teams Draw Fire Operator Relationship Specialty Start Date End Date Christine Foy MD [address] [place] [id number] [facility] - General 06/16/18
--- OUTSIDE RECORDS SUMMARY | 2024-10-26 13:02 | XMS_ITS | Referral Summary ---
Author Organization [facility] [address] Address [address] [place] [address] Care Team Providers Care Architecture Internship Name Role Phone Christine Foy MD Primary Care Provider [phone] Allergies Active Allergy Reactions Criticality Noted Date [...] on file Legal Sex Male 6:47 AM STAFF COMBAT INFORMATION CENTER OFFICER Gender Identity Not on file Sexual Orientation [...] Plan of Treatment Not on file Insurance [facility] MEDICARE MEDICARE [facility] Care Teams Architecture Internship Relationship Specialty Start Date End Date Christine Foy MD [address] [place] [address] PCP - General 11/11/12
--- OUTSIDE RECORDS SUMMARY | 2024-10-26 13:02 | XMS_ITS | Clinical Summary ---
Author Organization [facility] Address [address] [place] [address] Care Team Providers Care Supervisor Fertilizer Name Role Phone Christine Foy MD Primary Care Provider [phone] Source Comments [facility] Affiliates and Associated Physician Practices is amultiple site organization consisting of ambulatory clinics and hospital sitesin [place], [place], [place] and [place]. This disclosure is being madepursuant to the Care Everywhere program and may not contain all information available regarding this patient. Last updated 18.[facility] Allergies Active Allergy Reactions Criticality Noted Date [...] age to complete this topic Care Teams Supervisor Fertilizer Relationship Specialty Start Date End Date Chrsitine Foy MD [address] [place] [address] PCP - General 06/16/18
--- OUTSIDE RECORDS SUMMARY | 2024-10-26 13:02 | XMS_ITS | Clinical Summary ---
Author Organization [facility] [address] 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
== END 2024-10-23 11:28 | disposition home or self-care (01) ==
LOC: ANHGOSHLAB 11:28
PROVIDERS: PCP Internal Medicine; Visit Provider Nurse Practitioner
DX: E11.40 Type 2 diabetes mellitus with diabetic neuropathy, unspecified (principal); E87.1 Hypo-osmolality and hyponatremia; R41.3 Other amnesia; G25.81 Restless legs syndrome; Z79.4 Long term (current) use of insulin
CPT/HCPCS: 36415; 80053; 80061; 82607; 82728; 82746; 83036; 83735; 84443; 85025

== ENCOUNTER 2024-12-18 11:03 | Outpatient (CLI) | payer OTHER, MEDICARE, SELFPAY ==
--- OUTSIDE RECORDS SUMMARY | 2024-12-18 13:41 | XMS_ITS | Clinical Summary ---
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 Gender Identity Not on file Sexual Orientation [...] - Tdap) 1968 Hepatitis B Screening 1975 Pneumococcal vaccine 65+ (1 of 1 - PCV) 2007 Zoster Vaccine (1 of 2) 2007 Abdominal Aortic Aneurysm (AAA) Screen 2022 Well Visit 65+ 2022 Influenza Vaccine (#1) 2024 08/02/2018 Insurance [facility] HMO/PPO Address: [facility] [address] [place] [address] MEDICARE MEDICARE [facility] HMO/PPO Address: [address] [address] [place] [address] Care Teams Gem Stone Cutter Relationship Specialty Start Date End Date Christine Foy MD [address] [place] [address] PCP - General 11/11/12
--- OUTSIDE RECORDS SUMMARY | 2024-12-18 13:41 | XMS_ITS | Patient Health Summary ---
Author Organization [facility] Address [address] [facility] [place] [address] Care Team Providers Care Carpenter Supervisor Name Role Phone Christine Foy MD Primary Care Provider [phone] Note from [facility],non-owned Affiliates and Associated Physician Practices is amultiple site organization consisting of ambulatory clinics and hospital sitesin [place], [place], [place] and [place]. This disclosure is being madepursuant to the Care Everywhere program and may not contain all information available regarding this patient. Last updated 18.[facility] [employer] Allergies * Atropine(Other) -Low Criticality Active Problems [...] Sexual Orientation Not on file Care Teams Carpenter Supervisor Relationship Specialty Start Date End Date Christine Foy MD [address] [place] [address] PCP - General 06/16/18
--- OUTSIDE RECORDS SUMMARY | 2024-12-18 13:41 | XMS_ITS | Clinical Summary ---
Author Organization [facility] Address [facility] [place] [address] Care Team Providers Care Developer Prover Mechanical Name Role Phone Unavailable Primary Care Provider [...] of 1 - PCV) 2022 COVID-19 Vaccine ( - 2023-2 5 season) 2024 Influenza Adult (#1) 2024 RSV Immunization or 60+ Years (1 - 1-dose 75+ series) 2032 Meningococcal B Vaccine Aged Out No l onger eligible based on patient's age to complete this topic Meningococcal Vaccine Aged Out No marely deuce eligible based on patient's age to complete this topic RSV Immunizations Under 20 Months Aged Out No longer eligible based on patient's age to complete this topic
--- OUTSIDE RECORDS SUMMARY | 2024-12-18 13:41 | XMS_ITS | Referral Summary ---
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
--- OUTSIDE RECORDS SUMMARY | 2024-12-18 13:41 | XMS_ITS | Referral Summary ---
Author Organization [facility] Address [address] [place] [address] Care Team Providers Care Die Maker Bench Stamping Name Role Phone Christine Foy MD Primary Care Provider [phone] Source Comments [facility],non-[facility] Affiliates and Associated Physician Practices is amultiple site organization consisting of ambulatory clinics and hospital sitesin [place], [place], [place] and [place]. This disclosure is being madepursuant to the Care Everywhere program and may not contain all information available regarding this patient. Last updated 18.[facility] Allergies Active Allergy Reactions Criticality Noted [...] of Treatment Not on file Care Teams Die Maker Bench Stamping Relationship Specialty Start Date End Date Christine Foy MD [address] [place] [id number] [facility] - General 06/16/18
--- OUTSIDE RECORDS SUMMARY | 2024-12-18 13:41 | XMS_ITS | Clinical Summary ---
Author Organization [facility] Address [address] [place] [address] Care Team Providers Care Agent Spa Desk Name Role Phone Christine Foy MD Primary Care Provider [phone] Source Comments [facility],non[facility] Affiliates and Associated Physician Practices is amultiple site organization consisting of ambulatory clinics and hospital sitesin [place], [place], [place] and [place]. This disclosure is being madepursuant to the Care Everywhere program and may not contain all information available regarding this patient. Last updated 18.[facility] [employer] Allergies Active Allergy Reactions Criticality Noted Date [...] to complete this topic MENINGOCOCCAL (Group B) VACC INE SHARED DECISION-MAKING Aged Out No longer eligibl e based on patient's age to complete this topic MENINGOCOCCAL GROUPS A/C/Y/W VACCINE Aged Out No longer eligible b ased on patient's age to complete this topic Care Teams Agent Spa Desk Relationship Specialty Start Date End Date Christine Foy MD [address] [place] [address] PCP - General 06/16/18
[2024-12-18 13:56] LABS: Basophils Absolute Auto 0.1 K/mm3 (0.0-0.1); Eosinophils Absolute Auto 0.4 K/mm3 (0-0.3); Eosinophils Percent Auto 6.9 % (0-4.4); Hematocrit 38.9 % (42.0-52.0); Hemoglobin 12.3 g/dL (14.0-18.0); Immature Granulocyte Absolute 0.01 K/mm3 (0.00-0.031); Immature Granulocyte Percent A 0.2 % (0-0.5); Lymphocytes Absolute Auto 0.92 K/mm3 (0.9-3.2); Lymphocytes Percent Auto 18.1 % (18.3-44.2); Mean Corpuscular HGB Conc 31.6 g/dl (32-36); Mean Corpuscular Hemoglobin 26.2 pg (26-34); Mean Corpuscular Volume 82.8 fl (80-100); Mean Platelet Volume 9.7 fl (7.4-10.4); Monocytes Absolute Auto 0.4 K/mm3 (0.1-0.6); Monocytes Percent Auto 8.6 % (2.6-8.5); Neutrophils Absolute Auto 3.3 K/mm3 (1.3-6.7); Neutrophils Percent Auto 65.2 % (45.5-73.1); Platelet Count Result 217 k/mm3 (150-375); Red Cell Distribution Width 19.9 % (11.5-14.5); White Blood Count 5.1 K/mm3 (4.5-10.0)
== END 2024-12-18 11:04 | disposition home or self-care (01) ==
PROVIDERS: PCP Internal Medicine; Visit Provider Nurse Practitioner
DX: D50.9 Iron deficiency anemia, unspecified (principal)
CPT/HCPCS: 36415; 82728; 85025

== ENCOUNTER 2024-12-19 09:22 | Outpatient (CLI) | payer OTHER, MEDICARE, SELFPAY ==
--- NOTE | 2024-12-19 09:38 | ECG_ITS ---
Test Date: 2024-12-19 09:59:25 Measurements Intervals Mize Rate: 74 P: 92 NM: 195 QRS: 69 QRSD: 117 T: 33 QT: 392 QTc: 435 Interpretive Statements SINUS RHYTHM INCOMPLETE RIGHT BUNDLE BRANCH BLOCK [90+ ms QRS DURATION, TERMINAL R IN V1/V2, 40+ ms S IN I/aVL/V4/V5/V6] ST DEVIATION AND MODERATE T-WAVE ABNORMALITY, CONSIDER ANTERIOR ISCHEMIA [-0.1+ mV T WAVE IN V3/V4] ABNORMAL ECG Electronically Signed On 12-20-2024 12:02:32 CDT by Lio Mehta M.D.
--- OUTSIDE RECORDS SUMMARY | 2024-12-19 10:20 | XMS_ITS | Clinical Summary ---
Author Organization [facility] Address [address] [place] [address] Care Team Providers Care Scientific Helper Name Role Phone Christine Foy MD Primary Care Provider [phone] Source Comments [facility],non-[facility] Affiliates and Associated Physician Practices is amultiple site organization consisting of ambulatory clinics and hospital sitesin [place], [place], [place] and [place]. This disclosure is being madepursuant to the Care Everywhere program and may not contain all information available regarding this patient. Last updated 18.[facility] Allergies Active Allergy Reactions Criticality Noted Date [...] age to complete this topic Care Teams Scientific Helper Relationship Specialty Start Date End Date Christine Foy MD [address] [place] [address] PCP - General 06/16/18
--- OUTSIDE RECORDS SUMMARY | 2024-12-19 10:21 | XMS_ITS | Clinical Summary ---
Author Organization [facility] Address [facility] [place] [address] Care Team Providers Care Account Support Associate Name Role Phone Unavailable Primary Care Provider [...]
--- OUTSIDE RECORDS SUMMARY | 2024-12-19 10:21 | XMS_ITS | Clinical Summary ---
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
--- OUTSIDE RECORDS SUMMARY | 2024-12-19 10:21 | XMS_ITS | Referral Summary ---
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
[2024-12-19 10:53] LABS: Hematocrit 38.7 % (42.0-52.0); Hemoglobin 12.5 g/dL (14.0-18.0)
[2024-12-19 11:01] LABS: Anion Gap 12 mmol/L (4-12); Blood Urea Nitrogen 9 mg/dL (9-20); Calcium 9.5 mg/dL (8.4-10.2); Carbon Dioxide 20 mmol/L (22-30); Chloride 99 mmol/L (98-107); Estimated Glomerular Filt Rate > 60; Glucose 102 mg/dL (65-110); Potassium 4.3 mmol/L (3.4-5.0); Sodium 131 mmol/L (137-145)
== END 2024-12-19 09:23 | disposition home or self-care (01) ==
LOC: ANHSURGERY 09:31
PROVIDERS: Anesthesiology; PCP Internal Medicine; Visit Provider Otolaryngology
DX: Z01.818 Encounter for other preprocedural examination (principal); I45.10 Unspecified right bundle-branch block; R94.31 Abnormal electrocardiogram [ECG] [EKG]; I27.20 Pulmonary hypertension, unspecified; I10 Essential (primary) hypertension; D50.9 Iron deficiency anemia, unspecified; Z79.899 Other long term (current) drug therapy
CPT/HCPCS: 36415; 80048; 85014; 85018; 93005

== ENCOUNTER 2024-12-25 00:28 | Day surgery (SDC) | payer OTHER, MEDICARE, SELFPAY ==
[2024-12-11 12:24] VITALS: BMI 36.3
--- NOTE | 2024-12-11 12:41 | PC.NURSE ---
Addendum entered by Caty El RN 12/11/24 12:56: Pt is also to take his inhalers prescribed on date of surgery as he dose his daily use.NIMA Original Note: Report to the Outpatient Waiting Room, entrance under the green pavilion located off [facility], at time _0600am on date __12/25/24 . Planned Procedure Time: _0730am .? Time changes happen often and if your time is changed the preop area will call you the afternoon before. - You and your visitor will be asked to self-screen and do not enter if you have any COVID symptoms. Please call surgeon if you need to reschedule. - A mask is optional within the hospital at this time. Patients may have clear liquids (water, carbonated beverages, clear teas, apple juice) until 3 hours prior to surgery with a maximum of 20 ounces. - No food from midnight until time of surgery and no smoking, or chewing tobacco (or any form of nicotine). No chewing gum, candy or mints. (0430am) Take only the following medications with a SIP of water on the morning of surgery: ____Ambrisetam, Amlodipine, Gabapentin and sildenafil DO NOT STOP ANY OF YOUR OTHER PRESCRIPTION MEDICATIONS PRIOR TO SURGERY EXCEPT THE FOLLOWING Hold all vitamins and supplements for 3 days per anesthesiologist. Date of last dose is 12/21/24 Medications to discontinue per physician NSAIDS for [address] Meyer Date to take last dose____12/16/24 Please no make-up, nail tamazight, hairspray, perfume, deodorant, or body powder the day of surgery.? No jewelry (including any body piercings) or valuables the day of surgery, leave them at home.? Please take a shower or bath the night before, or the morning of, surgery with an antibacterial soap.? Wear comfortable, loose fitting clothing.? - Jewelry must be removed prior to entering the operating room.? Rings and piercings that are not removed may be cut off. - The hospital will not accept responsibility for valuables.? - Please leave all valuables, including medications, at home the day of surgery. If you are going home after surgery, a licensed special client bus driver must drive you home.? - NO public transportation without another adult if you receive anesthesia. - We recommend that an adult stay with you for 24 hours following discharge. - We also recommend that you do not drive, make important decision, drink alcoholic beverages, or take any drugs that were not prescribed by your health care provider for at least 24 hours after your discharge time. Follow any additional instructions given to you from your surgeon. Telephone instructions given to _Patient and asked if any additional questions and then verbalized understanding. Patient advised to call surgeon office or pre surgery nurse liaison [phone] if any additional questions.
--- OUTSIDE RECORDS SUMMARY | 2024-12-25 00:32 | XMS_ITS | Clinical Summary ---
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
--- OUTSIDE RECORDS SUMMARY | 2024-12-25 00:32 | XMS_ITS | Clinical Summary ---
Author Organization [facility] Address [facility] [place] [address] Care Team Providers Care Plastic Printer Name Role Phone Unavailable Primary Care Provider [...]
--- OUTSIDE RECORDS SUMMARY | 2024-12-25 00:32 | XMS_ITS | Referral Summary ---
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
--- OUTSIDE RECORDS SUMMARY | 2024-12-25 00:32 | XMS_ITS | Clinical Summary ---
Author Organization [facility] [employer] Address [address] [place] [address] Care Team Providers Care Drop Wirer Name Role Phone Christine Foy MD Primary Care Provider [phone] Source Comments [facility] Affiliates and Associated Physician Practices is amultiple site organization consisting of ambulatory clinics and hospital sitesin [place], [place], [place] and [place]. This disclosure is being madepursuant to the Care Everywhere program and may not contain all information available regarding this patient. Last updated 18.[facility] [employer] Allergies Active Allergy Reactions Criticality Noted Date [...] age to complete this topic Care Teams Drop Wirer Relationship Specialty Start Date End Date Christine Foy MD [address] [place] [address] PCP - General 06/16/18
[2024-12-25 06:51] LABS: Sodium 132 mmol/L (137-145)
[2024-12-25] MEDS: OXYMETAZOLINE HCL 0.05% NAS 15 ML BTL (*BKC) 1 SPRAY NASAL (07:00)
[2024-12-25] MEDS: ACETAMINOPHEN 500 MG TABLET 1000 MG PO (07:00)
--- NOTE | 2024-12-25 07:07 | WPDANESEPPF ---
Anes - Initial Pre Proc Eval Procedure: Operation Date: 12/25/24 07:30 Proposed Procedures p Image Guided Bilateral Frontal Sinusotomy, Bilateral Ethmoidectomy, Bilateral Sphenoidotomy, Bilateral Maxillary Antrostomy, Bilateral Turbinate Reduction - Neil Meyer MD s Septoplasty - Neil Meyer MD Date/Time: 12/25/24 07:07 Surgeon: Neil Meyer MD Pre Op Diagnosis: Chr Sinusitis Patient Data Age: 69 Gender: M Height: 1.68 m Weight: 102 kg Allergies Allergy/AdvReac Type Severity Reaction Status Date / Time atropine Allergy Severe EYE Verified 12/11/24 12:17 SWELLING Home Medications ?Medication ?Instructions ?Recorded ?Confirmed ?Type cholecalciferol (vitamin D3) 50 2,000 unit PO DAILY 08/22/19 12/11/24 History mcg (2,000 unit) tablet (Vitamin D3) vitamin B complex 1 tablet PO DAILY 08/22/19 12/11/24 History sildenafil (pulm.hypertension) 20 20 mg PO TID 04/01/21 12/11/24 History mg tablet ambrisentan 5 mg tablet 5 mg PO DAILY 04/20/22 12/11/24 History Prosthetic Supplies #1 ea 02/18/23 12/11/24 Rx CPAP MASK RE-FIT #1 ea 05/17/23 12/11/24 Rx clotrimazole-betamethasone 1 1 applic topical BID PRN rash #45 06/21/23 12/11/24 Rx %-0.05 % topical cream grams fluticasone fur. 100 mcg-umeclid 1 inh inhalation DAILY 08/09/23 12/11/24 History 62.5 mcg-vilant 25 mcg inhalat.powder (Trelegy Ellipta) guaifenesin 600 mg tablet, 600 mg PO Q12H PRN congestion 10/28/23 12/11/24 History extended release 12 hr (Mucinex) trazodone 50 mg tablet See Rx Instructions .Route 07/10/24 12/11/24 Rx .COMPLEX #60 tabs amlodipine 5 mg tablet 5 mg PO DAILY #90 tabs 07/31/24 12/11/24 Rx spironolactone 50 mg tablet See Rx Instructions .Route 10/02/24 12/11/24 Rx .COMPLEX #30 tabs gabapentin 300 mg capsule See Rx Instructions .Route 10/12/24 12/11/24 Rx .COMPLEX #120 caps levalbuterol tartrate 45 1 puff inhalation Q6H #15 grams 10/23/24 12/11/24 Rx mcg/actuation aerosol inhaler tolterodine 2 mg tablet 2 mg PO QHS 10/23/24 12/11/24 History ferrous sulfate 325 mg (65 mg 325 mg PO DAILY #90 tabs 10/24/24 12/11/24 Rx iron) tablet acetaminophen 500 mg capsule 500 mg PO Q6H PRN pain 12/11/24 12/11/24 History Laboratory Tests 12/25/24 06:36 Sodium 132 L mmol/L (137-145) Patient hx anesthesia problems: none Family hx anesthesia problems: none Results Review: All pre-operative results and documents have been reviewed as part of the pre-operative evaluation. 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 Pulmonary HTN Carpal tunnel syndrome on both sides Convex pes valgus of 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 Rheumatoid arthritis, seronegative, multiple sites (~2017) Type 2 diabetes mellitus with diabetic neuropathy, with long-term current use of insulin Prostate cancer Sleep apnea COPD (chronic obstructive pulmonary disease) Dyspnea Vision loss Surgical History Surgical History History of cataract surgery both eyes Hx of BKA (~2012) Hx of transurethral resection of prostate Family History Family History Father Hypertension Family history of diabetes mellitus in first degree relative Family history of emphysema Diabetes mellitus Family history of chronic obstructive pulmonary disease Sibling Family history of heart disease in male family member before age 55 Family history of cardiovascular disease, Onset Age: 50 Acute myocardial infarction, Onset Age: 50 Carcinoma of colon 4th brother Mother Family history of osteoarthritis Family history of arthritis Grandparent Family history of liver disease Family history of condition Family history of malignant neoplasm of cervix Family history of coronary artery disease Family history of cardiovascular disease Family history of malignant neoplasm Other Family history of alcoholism Social History Social History Smoking packs per day: 1 Smoking cigarettes per day: 20.0 Years smoked: 30 Smoking pack-years: 30.00 Smoking status: Former smoker Tobacco type: cigarettes and cigars Smoking end date: 10/04/10 Additional smoking assessment comments: still smokes occ cigar Alcohol intake: current Drinks per week: 14 Alcohol use details: ONE-TWO DRINKS PER MONTH ANUSHKA Substance use: current Substance use type: marijuana Other substance usage details: Gummies daily Do You Feel Safe in your Home?: Yes Lack of Transportation: No Current Housing: Decline to Answer Concerned About Future Housing: Decline to Answer Difficulty Paying Gas/Electric Bills: Decline to Answer Difficulty Paying for Meds: Decline to Answer Currently Unemployed: Decline to Answer Education: Decline to Answer Difficulty w/ Childcare or Family Care: Decline to Answer Living arrangements: with family Additional living arrangements comments: Occupation/Education: retired Gender identity (if verbalized by the patient): Male Spiritual care concerns: No Anes - Eval Final PreProcedure Day of Procedure 12/25/24 07:07 Patient weight: obese Heart: regular rate and rhythm Lungs: clear to auscultation and normal air movement Airway: Mallampati scale class II and special considerations (Teeth in poor condition, none loose. ) Neurological: alert and oriented Last oral intake: >/= 8 hours ASA classification: III Emergent: no Anesthetic plan: proceed Anesthesia type and monitoring: general ETT and standard monitoring Results Review: All pre-operative results and documents have been reviewed as part of the pre-operative evaluation. HTN, RA, DM, COPD, JUVENTINO on CPAP, Na 132 today. Informed Consent: The patient's anesthetic plan and its attendant risks and benefits were discussed with the patient/family/POA. Questions were solicited and answers provided to the satisfaction of the patient/family/POA.
--- NOTE | 2024-12-25 07:11 | PM.IMHP ---
H&P: HPI History of Present Illness Date/Time: 12/25/24 07:11 Chief Complaint: nasal polyps Review of Systems Review of Systems: All systems reviewed & are unremarkable except as noted in HPI and below PMFSH Past Medical History Medical History Nonunion of joint fusion Charcot's joint of foot, non-diabetic Clawtoe, acquired Hyponatremia Long-term current use of testosterone cypionate Arthropathy of ankle Gall bladder stones Fibrosing alveolitis Bilateral wrist pain Male hypogonadism COVID-19 History of malignant neoplasm of prostate Laceration of knee without complication Avulsion fracture of distal phalanx of finger Arthritis of wrist, left Encounter for orthopedic follow-up care 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 Pulmonary HTN Carpal tunnel syndrome on both sides Convex pes valgus of 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 Rheumatoid arthritis, seronegative, multiple sites (~2017) Type 2 diabetes mellitus with diabetic neuropathy, with long-term current use of insulin Prostate cancer Sleep apnea COPD (chronic obstructive pulmonary disease) Dyspnea Vision loss Surgical History Surgical History History of cataract surgery both eyes Hx of BKA (~2012) Hx of transurethral resection of prostate Family History Family History Father Hypertension Family history of diabetes mellitus in first degree relative Family history of emphysema Diabetes mellitus Family history of chronic obstructive pulmonary disease Sibling Family history of heart disease in male family member before age 55 Family history of cardiovascular disease, Onset Age: 50 Acute myocardial infarction, Onset Age: 50 Carcinoma of colon 4th brother Mother Family history of osteoarthritis Family history of arthritis Grandparent Family history of liver disease Family history of condition Family history of malignant neoplasm of cervix Family history of coronary artery disease Family history of cardiovascular disease Family history of malignant neoplasm Other Family history of alcoholism Social History Social History Smoking packs per day: 1 Smoking cigarettes per day: 20.0 Years smoked: 30 Smoking pack-years: 30.00 Smoking status: Former smoker Tobacco type: cigarettes and cigars Smoking end date: 10/04/10 Additional smoking assessment comments: still smokes occ cigar Alcohol intake: current Drinks per week: 14 Alcohol use details: ONE-TWO DRINKS PER MONTH AN[place]KA Substance use: current Substance use type: marijuana Other substance usage details: Gummies daily Do You Feel Safe in your Home?: Yes Lack of Transportation: No Current Housing: Decline to Answer Concerned About Future Housing: Decline to Answer Difficulty Paying Gas/Electric Bills: Decline to Answer Difficulty Paying for Meds: Decline to Answer Currently Unemployed: Decline to Answer Education: Decline to Answer Difficulty w/ Childcare or Family Care: Decline to Answer Living arrangements: with family Additional living arrangements comments: Occupation/Education: retired Gender identity (if verbalized by the patient): Male Spiritual care concerns: No Meds Home Medications and Allergies Home Medications ?Medication ?Instructions ?Recorded ?Confirmed ?Type cholecalciferol (vitamin D3) 50 2,000 unit PO DAILY 08/22/19 12/11/24 History mcg (2,000 unit) tablet (Vitamin D3) vitamin B complex 1 tablet PO DAILY 08/22/19 12/11/24 History sildenafil (pulm.hypertension) 20 20 mg PO TID 04/01/21 12/11/24 History mg tablet ambrisentan 5 mg tablet 5 mg PO DAILY 04/20/22 12/11/24 History Prosthetic Supplies #1 ea 02/18/23 12/11/24 Rx CPAP MASK RE-FIT #1 ea 05/17/23 12/11/24 Rx clotrimazole-betamethasone 1 1 applic topical BID PRN rash #45 06/21/23 12/11/24 Rx %-0.05 % topical cream grams fluticasone fur. 100 mcg-umeclid 1 inh inhalation DAILY 08/09/23 12/11/24 History 62.5 mcg-vilant 25 mcg inhalat.powder (Trelegy Ellipta) guaifenesin 600 mg tablet, 600 mg PO Q12H PRN congestion 10/28/23 12/11/24 History extended release 12 hr (Mucinex) trazodone 50 mg tablet See Rx Instructions .Route 07/10/24 12/11/24 Rx .COMPLEX #60 tabs amlodipine 5 mg tablet 5 mg PO DAILY #90 tabs 07/31/24 12/11/24 Rx spironolactone 50 mg tablet See Rx Instructions .Route 10/02/24 12/11/24 Rx .COMPLEX #30 tabs gabapentin 300 mg capsule See Rx Instructions .Route 10/12/24 12/11/24 Rx .COMPLEX #120 caps levalbuterol tartrate 45 1 puff inhalation Q6H #15 grams 10/23/24 12/11/24 Rx mcg/actuation aerosol inhaler tolterodine 2 mg tablet 2 mg PO QHS 10/23/24 12/11/24 History ferrous sulfate 325 mg (65 mg 325 mg PO DAILY #90 tabs 10/24/24 12/11/24 Rx iron) tablet acetaminophen 500 mg capsule 500 mg PO Q6H PRN pain 12/11/24 12/11/24 History Allergies Allergy/AdvReac Type Severity Reaction Status Date / Time atropine Allergy Severe EYE Verified 12/11/24 12:17 SWELLING Exam Narrative: bilateral nasal polyps, chronic pansinus disease, rest of exam wnl H&P: Results Labs Labs: [facility] 12/25/24 06:36 Sodium 132 L Assessment and Plan Assessment and plan (1) Nasal polyps: Code(s): J33.9 - Nasal polyp, unspecified Status: Acute Plan This patient has chronic pansinusitis, nasal polyps. Here for bilateral frontal, sphenoid, maxillary, ethmoid sinus surgery, septoplasty, turbinoplasty, image guidance. r/b/a reviewed, pt understands and agrees to proceed. refer to outpt H&p for aditional detail.
--- NOTE | 2024-12-25 07:13 | WPDHPUPDATE1 ---
History and Physical Update Update Date/Time: 12/25/24 07:13 History and Physical has been reviewed, including an updated exam of the patient. There are NO changes in the patient's condition. Risks, benefits, and alternatives have been discussed and questions answered. Patient agrees to proceed with procedure.
--- NOTE | 2024-12-25 07:13 | W.PM.PROC2 ---
Procedure Note - Detailed Date of Procedure 12/25/24 Pre-op Diagnosis Chr Sinusitis Post-op Diagnosis Same Procedure Performed Bilateral frontal sinusotomy, total ethmoidectomy, sphenoidotomy, maxillary antrostomy, turbinoplasty, image guided surgery. Surgeon Neil Meyer MD Anesthesia General Indications Chronic sinusitis, nasal polyposis Findings Mild bilateral nasal polyps, with polypoid mucosa along septum and middle turbinates bilaterally. Thick mucous removed from right sphenoid sinus. Nasopore bilaterally. Moderate bleeding Description of Procedure On the date of procedure the patient was met in the preoperative area and risk and benefits of the procedure reviewed with the patient as documented in the H&P and they elected to proceed with surgery. Patient was brought back to the operating room by the anesthesia team and underwent general endotracheal anesthesia. Once an adequate plane of anesthesia was obtained a timeout was performed to assure the patient identification the patient here to be performed were correct. They were.The patient was then prepped and draped in the normal fashion for endoscopic sinus surgery. The diffusion image guidance system was calibrated and used for the entire case. Afrin-soaked pledgets were placed in the nasal cavities bilaterally. The entire case was performed under endoscopic visualization. Attention was then directed towards the right side. The middle turbinate was medialized and the osteomeatal complex was identified with a mike probe. Using a 90 degree backbiter, the uncinate process was reflected anteriorly and removed using a combination of sharp and powered dissection. The maxillary antrostomy was then created and widened by identifying the natural ostia and opening the sinus with straight america-cut forceps, backbiter, and microdebrider. Continuing with the microdebrider, the anterior ethmoid bulla was opened. Careful dissection was carried out posteriorly, through the basal lamella and posterior ethmoid cells until the sphenoid rostrum was identified. A Ruby suction bluntly identified the sphenoid os and the opening was widened with microdebrider and mushroom punch to 5mm. Using an image guided curved suction as well as J-curette, the posterior most ethmoid cell was identified and the ethmoids were bluntly fractured and dissected from posterior to anterior along the base of the skull. The remaining bone fragments were removed with appropriate curved instruments and microdebrider.? Lastly, image guided frontal suction and sinus seeker were used to identify the frontal sinus and enter it.? Next, the left maxillary antrostomy, ethmoidectomy and sphenoidotomy were carried out in identical fashion. ? Next, the right frontal sinus was identified and entered using image guided suction, seeker and frontal sinus angled biting instruments.? No clinical evidence of CSF throughout the case.? This was performed on the left side in an identical fashion. With all sinuses opened and clear, nasopore packing was placed in the ethmoid acvities bilaterally. Hemostasis was ensured. Lastly, the bilateral inferior turbinates were reduced submucosally using 2mm microdebrider and then outfractured with a sayer elevator. This significantly opened the airway. Martinez splints were then placed to secure the septum in the midline.? At this point, the procedure was concluded. Care the patient was transferred back to the anesthesia team and the patient was awoke in the operating room and transferred back to the PACU in stable condition. Neil Meyer M.D. Estimated Blood Loss 200 Drains No Packing Yes (nasopore bilaterally) Pathology None sent Complications No immediate complications Condition Stable Disposition PACU
[2024-12-25] MEDS: ceFAZolin 2 GM/D5W 50 ML 2 GM/50 ML BAG IVPB (07:30)
[2024-12-25] MEDS: LIDO 1%/EPINEPHRINE 1:100,000 50 ML VIAL 8 ML INFILTRATE (08:52)
[2024-12-25 08:55] VITALS: BP 148/83; PULSE 90; RESP 20; TEMP 36.7; O2SAT 100
[2024-12-25] MEDS: LACTATED RINGERS 1,000 ML 30 ML IV CONT (08:55)
[2024-12-25 09:10] VITALS: BP 139/73; PULSE 81; RESP 18; O2SAT 100
[2024-12-25 09:25] VITALS: BP 136/74; PULSE 82; RESP 18; O2SAT 94
[2024-12-25 09:36] VITALS: BP 139/69; PULSE 80; RESP 18; O2SAT 94
[2024-12-25 09:45] VITALS: BP 123/59; PULSE 81
[2024-12-25] MEDS: oxyCODONE HCL (*CRX) 5 MG TAB IR PO (09:58)
[2024-12-25 10:15] VITALS: BP 118/52; PULSE 85
== END 2024-12-25 10:41 | disposition home or self-care (01) ==
PROVIDERS: Anesthesiology; PCP Internal Medicine; Visit Provider Otolaryngology
PROC: (CPT 31253; principal; 2024-12-25 07:30)
DX: J32.4 Chronic pansinusitis (principal); J33.9 Nasal polyp, unspecified; E11.40 Type 2 diabetes mellitus with diabetic neuropathy, unspecified; J44.9 Chronic obstructive pulmonary disease, unspecified; J84.112 Idiopathic pulmonary fibrosis; E29.1 Testicular hypofunction; I27.20 Pulmonary hypertension, unspecified; G56.03 Carpal tunnel syndrome, bilateral upper limbs; M06.09 Rheumatoid arthritis without rheumatoid factor, multiple sites; G47.30 Sleep apnea, unspecified; F17.290 Nicotine dependence, other tobacco product, uncomplicated; F12.90 Cannabis use, unspecified, uncomplicated; E66.9 Obesity, unspecified; Z68.36 Body mass index [BMI] 36.0-36.9, adult; Z79.51 Long term (current) use of inhaled steroids; Z79.4 Long term (current) use of insulin; Z79.899 Other long term (current) drug therapy; Z99.89 Dependence on other enabling machines and devices; Z98.890 Other specified postprocedural states; Z89.511 Acquired absence of right leg below knee; Z87.19 Personal history of other diseases of the digestive system; Z85.46 Personal history of malignant neoplasm of prostate; Z80.0 Family history of malignant neoplasm of digestive organs; Z80.49 Family history of malignant neoplasm of other genital organs; Z82.49 Family history of ischemic heart disease and other diseases of the circulatory system
CPT/HCPCS: 31253; 31256; 30140; 31287; 61782; 36415; 84295; A9270; J0690; J1100; J2003; J2004; J2250; J2405; J2704; J3010; J7030; J7120

== ENCOUNTER 2025-01-26 09:29 | Outpatient (CLI) | payer OTHER, MEDICARE, SELFPAY ==
--- NOTE | ~2025-01-26 | XR_ITS ---
Clinical Indication: Pulmonary hypertension PA and lateral views of the chest: Comparison: 05/17/2023 Findings: Probable minimal diffuse reticulonodular interstitial prominence. There is prominence of th e central pulmonary vasculature.. Bones and soft tissues are unremarkable. Impression: Central congestive change versus pulmonary artery hypertension. Suspected minimal pulmonary edema pattern. Correlate for other atypical subtle reticulonodular inters titial disease. Consider chest CT as indicated. Reviewed, dictated and finalized at location . Impression: Central congestive change versus pulmonary artery hypertension. Suspected minimal pulmonary edema pattern. Correlate for other atypical subtle reticulonodular interstitial disease. Consider chest CT as indicated.
== END 2025-01-26 09:30 | disposition home or self-care (01) ==
LOC: GOSHIMG 09:30
PROVIDERS: PCP Student in an Organized Health Care Education/Training Program; Visit Provider Student in an Organized Health Care Education/Training Program
DX: R09.89 Other specified symptoms and signs involving the circulatory and respiratory systems (principal); I27.20 Pulmonary hypertension, unspecified
CPT/HCPCS: 71046

== ENCOUNTER 2025-02-19 09:26 | Emergency (ER) | payer OTHER, MEDICARE, SELFPAY ==
[2025-02-19] VITALS (12 sets, daily range): BP systolic 110–146; BP diastolic 66–90; PULSE 75–91; RESP 16–18; TEMP 36.6; O2SAT 96–100
--- NOTE | ~2025-02-19 | US_ITS ---
EXAMINATION: US venous doppler [facility] DATE: 02/19/2025 10:50 INDICATION: Left lower limb pain, swelling and erythema TECHNIQUE: Grayscale ultrasound images without and with compression and Doppler ultrasound images of the left lower extremity veins were obtained. COMPARISON: None. FINDINGS: The visualized portions of left common femoral vein, profunda (deep) femoral vein, femoral vein, popl iteal vein, peroneal veins, posterior tibial veins, gastrocnemius vein and proximal to mid greater sa phenous vein are patent. Minimal peripheral hyperechoic foci along the otherwise patent and compressi ble left lesser saphenous vein suggestive of small amount of residual chronic thrombus. IMPRESSION: 1. No deep venous thrombosis in the left lower limb. 2. Minimal amount of likely chronic nonocclusive thrombus at the periphery of the left lesser sapheno us vein. Reviewed, dictated and finalized at location A. IMPRESSION: 1. No deep venous thrombosis in the left lower limb. 2. Minimal amount of likely chronic nonocclusive thrombus at the periphery of t he left lesser saphenous vein.
--- OUTSIDE RECORDS SUMMARY | 2025-02-19 09:51 | XMS_ITS | Clinical Summary ---
Author Organization [facility] Address [address] [place] [address] Care Team Providers Care Potato Grader Name Role Phone Christine Foy MD Primary Care Provider [phone] Source Comments [facility] Affiliates and Associated Physician Practices is amultiple site organization consisting of ambulatory clinics and hospital sitesin [place], [place], [place] and [place]. This disclosure is being madepursuant to the Care Everywhere program and may not contain all information available regarding this patient. 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
--- OUTSIDE RECORDS SUMMARY | 2025-02-19 09:51 | XMS_ITS | Referral Summary ---
Author Organization [facility] [address] [place] [address] [address] [facility] [address] [place] [address] Care Team Providers Care Burning Supervisor Name Role Phone Bobby Victoria DO Primary Care Provider [phone] Encounters Date Type Department Care Team Description 01/29/2025 9:30 AM CDT Office Visit [facility] Cardiology [address] [facility] [address] [place] [address] Terry Salas MD Pulmonary hypertension (HCC) (Primary Dx); Need for lipid screening 01/26/2025 Telephone [facility] Medical [facility] Cardiology [address] [place] [address] [address] [place] [address] Terry Salas MD from Last 3 Months Allergies Active Allergy Reactions Criticality Noted Date Comments Homatropine Unknown 06/06/2020 Medications spironolactone (ALDACTONE) 50 mg tablet take 1 tablet (50MG) by oral route every day 0 3 Active gabapentin (NEURONTIN) 300 mg capsule take 1 capsule (300MG) by oral route 3 times every day 0 3 Active Additional Information Patient taking differently:300 mg,2 tablets by mouth BID, Reported on 01/29/2025 omeprazole 20 mg tablet,delayed release (DR/EC) take [...] on file 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 Gender Identity Not on file Sexual Orientation Not on file Last Filed Vital Signs Vital Sign Reading Time Taken Comments Blood Pressure 124/66 01/29/2025 9:21 AM CDT Pulse 80 01/29/2025 9:21 AM CDT Temperature - - Respiratory Rate - - Oxygen Saturation 96% 01/29/2025 9:21 AM CDT Inhaled Oxygen Concentration - - Weight 105 kg (231 lb 6.4 oz) 01/29/2025 9:21 AM CDT Height 168.9 cm (5' 6.5 ) 01/29/2025 9:21 AM CDT Body Mass Index 36.79 01/29/2025 9:21 AM CDT Plan of Treatment Not on file Procedures Procedure Name Priority Date/Time Associated Diagnosis Comments POCT LIPID PANEL Routine 01/29/2025 9:41 AM CDT Need for lipid screening from Last 3 Months Results * POCT lipid panel (01/29/2025 9:41 AM CDT) Cholesterol, POC 163 mg/dL Comment:GLU = 121 HDL, POC 78 mg/dL Triglycerides, POC 73 mg/dL LDL Cholesterol POC 71 mg/dL Chol/HDL Ratio, POC 0.9 Non-HDL Cholesterol, POC 85 mg/dL Cholesterol Total, POC 163 mg/dL Capillary blood 01/29/2025 9 :41 AM CDT Terry Salas MD POINT OF CARE TEST ORDER JOHNNY Final Result from Last 3 Months Insurance MEDICARE MEDICARE [facility] [place] Care Teams Burning Supervisor Relationship Specialty Start Date End Date Bobby Victoria DO [id number] [facility] [address] [place] [id number] PCP - General Internal Medicine 01/29/25
--- OUTSIDE RECORDS SUMMARY | 2025-02-19 09:51 | XMS_ITS | Clinical Summary ---
Author Organization [facility] Address [facility] [place] [address] Care Team Providers Care Geophysical E Logger Name Role Phone Unavailable Primary Care Provider [...] Td Vaccines ( 1 - Tdap) 1976 Pneumococcal Vaccine: 50+ Ye ars (1 of 1 - PCV) 2007 Zoster Vaccines (1 of 2) 2007 COVID-19 Vaccine ( - 2023-2 5 season) 2024 RSV Immunization or 60+ Years (1 [...]
--- OUTSIDE RECORDS SUMMARY | 2025-02-19 09:51 | XMS_ITS | Clinical Summary ---
Author Organization [facility] [address] [facility] [address] [place] [address] Care Team Providers Care Development Technologist Name Role Phone Bobby Victoria DO Primary Care Provider [phone] Allergies Active Allergy Reactions Criticality Noted Date [...] Pulmonary hypertension 06/06/2020 Disorder of lung 02/25/2011 Encounters Date Type Department Care Team Description 01/29/2025 9:30 AM CDT Office Visit [facility] Medical [facility] Cardiology [address] [facility] [address] [place] [address] Terry Salas MD Pulmonary hypertension (HCC) (Primary Dx); Need for lipid screening 01/26/2025 Telephone [facility] Medical Group Cardiology [address] [place] [address] Terry Salas MD from Last 3 Months Surgical History Surgery Date Site/Laterality Comments OTHER SURGICAL HISTORY 10/04/2002 - 10/03/2003 : ACL repari - R. OTHER SURGICAL HISTORY 10/04/2002 - 10/03/2003 : L. medial menicus repair TOTAL KNEE ARTHROPLASTY 10/04/2012 - 10/03/2013 Left Medical History Medical History Date Comments Hx Other Medical Sleep Apnea, CP AP Hx Other Medical 2007 Pul. 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
[2025-02-19 09:58] LABS: Basophils Percent Auto 0.8 % (0.2-1.2); Eosinophils Absolute Auto 0.1 K/mm3 (0-0.3); Eosinophils Percent Auto 2.7 % (0-4.4); Hematocrit 38.7 % (42.0-52.0); Hemoglobin 12.2 g/dL (14.0-18.0); Immature Granulocyte Absolute 0.01 K/mm3 (0.00-0.031); Immature Granulocyte Percent A 0.2 % (0-0.5); Lymphocytes Absolute Auto 0.63 K/mm3 (0.9-3.2); Mean Corpuscular HGB Conc 31.5 g/dl (32-36); Mean Corpuscular Volume 85.6 fl (80-100); Mean Platelet Volume 9.2 fl (7.4-10.4); Monocytes Absolute Auto 0.4 K/mm3 (0.1-0.6); Monocytes Percent Auto 8.5 % (2.6-8.5); Neutrophils Absolute Auto 3.6 K/mm3 (1.3-6.7); Neutrophils Percent Auto 74.8 % (45.5-73.1); Platelet Count Result 220 k/mm3 (150-375); Red Blood Count 4.52 M/mm3 (4.6-6.20); Red Cell Distribution Width 12.8 % (11.5-14.5); White Blood Count 4.9 K/mm3 (4.5-10.0)
[2025-02-19 10:01] LABS: Alanine Aminotransferase 16 U/L (6-50); Albumin Level 4.2 g/dL (3.5-5.1); Alkaline Phosphatase 54 U/L (38-126); Anion Gap 8 mmol/L (4-12); Aspartate Amino Transferase 22 U/L (17-59); Bilirubin,Total 0.6 mg/dL (0.2-1.3); Blood Urea Nitrogen 9 mg/dL (9-20); Calcium 9.4 mg/dL (8.4-10.2); Carbon Dioxide 22 mmol/L (22-30); Chloride 101 mmol/L (98-107); Estimated CRCL calculation 90 ml/min; Estimated Glomerular Filt Rate > 60; Glucose 137 mg/dL (65-110); Sodium 131 mmol/L (137-145)
[2025-02-19 10:24] LABS: CRP < 0.5 mg/dL (<1.0)
[2025-02-19 10:30] LABS: INR 0.9; Prothrombin Time 13.1 Seconds (11.1-14.7)
[2025-02-19 10:38] LABS: Erythrocyte Sedimentation Rate 14 mm/hr (0-20)
--- NOTE | 2025-02-19 10:51 | ED_ITS ---
HPI - Wound/Laceration General Chief Complaint: Wound/Laceration Stated Complaint: FALL Time Seen by Provider: 02/19/25 10:20 Source: patient Mode of arrival: ambulatory Limitations: no limitations History of Present Illness HPI narrative: This is a 69 year old male that presents to the ER for laceration to the left lower leg. Sustained 5 days ago. He was seen at urgent care and sutured, started on antibiotic prophylaxis with Augmentin. Reports over the last couple of days the area has become red and swollen. Denies fevers. Related Data Home Medications Medication Instructions Recorded Confirmed Last Taken Type cholecalciferol (vitamin D3) 50 2,000 unit PO DAILY 08/22/19 01/22/25 12/21/24 History mcg (2,000 unit) tablet (Vitamin D3) vitamin B complex 1 tablet PO DAILY 08/22/19 01/22/25 12/21/24 History sildenafil (pulm.hypertension) 20 20 mg PO TID 04/01/21 01/22/25 12/25/24 History mg tablet ambrisentan 5 mg tablet 5 mg PO DAILY 04/20/22 01/22/25 12/25/24 History fluticasone fur. 100 mcg-umeclid 1 inh inhalation DAILY 08/09/23 01/22/25 Unknown History 62.5 mcg-vilant 25 mcg inhalat.powder (Trelegy Ellipta) guaifenesin 600 mg tablet, 600 mg PO Q12H PRN congestion 10/28/23 01/22/25 Unknown History extended release 12 hr (Mucinex) tolterodine 2 mg tablet 2 mg PO QHS 10/23/24 01/22/25 Unknown History acetaminophen 500 mg capsule 500 mg PO Q6H PRN pain 12/11/24 01/22/25 Unknown History Allergies Allergy/AdvReac Type Severity Reaction Status Date / Time atropine Allergy Severe EYE Verified 01/22/25 14:10 SWELLING Review of Systems 2 Review of Systems: CONSTITUTIONAL: Denies fever SKIN: Reports redness and swelling All systems reviewed & are unremarkable except as noted in HPI and below PMFSH Past Medical History Medical History Nonunion of joint fusion Charcot's joint of foot, non-diabetic Clawtoe, acquired Hyponatremia Long-term current use of testosterone cypionate Arthropathy of ankle Gall bladder stones Fibrosing alveolitis Bilateral wrist pain Male hypogonadism COVID-19 History of malignant neoplasm of prostate Laceration of knee without complication Avulsion fracture of distal phalanx of finger Arthritis of wrist, left Encounter for orthopedic follow-up care 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 Pulmonary HTN Carpal tunnel syndrome on both sides Convex pes valgus of 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 Rheumatoid arthritis, seronegative, multiple sites (~2018) Type 2 diabetes mellitus with diabetic neuropathy, with long-term current use of insulin Prostate cancer Sleep apnea COPD (chronic obstructive pulmonary disease) Dyspnea Vision loss Surgical History Surgical History History of cataract surgery both eyes Hx of BKA (~2012) Hx of transurethral resection of prostate Family History Family History Father Hypertension Family history of diabetes mellitus in first degree relative Family history of emphysema Diabetes mellitus Family history of chronic obstructive pulmonary disease Sibling Family history of heart disease in male family member before age 55 Family history of cardiovascular disease, Onset Age: 50 Acute myocardial infarction, Onset Age: 50 Carcinoma of colon 4th brother Mother Family history of osteoarthritis Family history of arthritis Grandparent Family history of liver disease Family history of condition Family history of malignant neoplasm of cervix Family history of coronary artery disease Family history of cardiovascular disease Family history of malignant neoplasm Other Family history of alcoholism Social History Social History (Updated 01/22/25 @ 14:03 by Kate Anne MA) Smoking packs per day: 1 Smoking cigarettes per day: 20.0 Years smoked: 30 Smoking pack-years: 30.00 Smoking status: Former smoker Tobacco type: cigarettes and cigars Smoking end date: 10/04/10 Additional smoking assessment comments: still smokes occ cigar Alcohol intake: current Drinks per week: 14 Substance use: current Substance use type: marijuana Other substance usage details: Gummies daily Do You Feel Safe in your Home?: Yes Lack of Transportation: No Current Housing: Decline to Answer Concerned About Future Housing: Decline to Answer Difficulty Paying Gas/Electric Bills: Decline to Answer Difficulty Paying for Meds: Decline to Answer Currently Unemployed: Decline to Answer Education: Decline to Answer Difficulty w/ Childcare or Family Care: Decline to Answer Living arrangements: with family Additional living arrangements comments: Occupation/Education: retired Gender identity (if verbalized by the patient): Male Spiritual care concerns: No Exam 2 Narrative: GENERAL: Well-appearing, well-nourished, and in no acute distress. HEAD: Normocephalic, atraumatic. EYES: EOMI. EXTREMITIES: Normal range of motion. Skin tear with central laceration with 5 sutures to the left woo. Mild-moderate surrounding redness SKIN: Warm, dry, no rash. NEURO: No focal deficits. Alert and oriented x3. PSYCH: Normal mood and affect Course Course Emergency Course: patient and family updated on workup. we spoke about further outpatient management versus admission for cellulitis. Patient would like to try to continue to be managed outpatient. He does have a follow up appointment scheduled with his PCP Vital Signs Vital signs: Vital Signs Temperature 97.9 F 02/19/25 09:30 Pulse Rate 75 02/19/25 09:30 Respiratory Rate 16 02/19/25 09:30 Blood Pressure 146/80 H 02/19/25 09:30 Pulse Oximetry 97 02/19/25 09:30 Oxygen Delivery Room Air 02/19/25 09:30 Temperature 97.9 F 02/19/25 10:16 Pulse Rate 81 02/19/25 11:02 Respiratory Rate 18 02/19/25 11:02 Blood Pressure 113/79 02/19/25 11:01 Pulse Oximetry 97 02/19/25 11:02 Oxygen Delivery Room Air 02/19/25 09:30 Procedures Foreign Body Removal Foreign Body #1: Foreign Body Removal Date: 02/19/25 Site: left Description of foreign body: other (sutures) Sedation/Analgesia: other (LET) Technique: removal with forceps and other (scissors) Confirmed by:: direct visualization Complications: none Post-procedure exam: awake, alert Neurovascular: no change from pre-procedure MDM - Wound/Laceration MDM Narrative Medical decision making narrative: Patient presents to the ER for redness and swelling surrounding a laceration to the left lower leg sustained 5 days ago. Patient is afebrile and nontoxic appearing. Cbc without leukocytosis. Inflammatory markers are not elevated. Venous Doppler without evidence of DVT. He does have a chronic nonocclusive thrombus in the left lesser saphenous vein. patient and family updated on workup. we spoke about further outpatient management versus admission for cellulitis. Patient would like to try to continue to be managed outpatient. He does have a follow up appointment scheduled with his PCP Differential Diagnosis Differential diagnosis: Likely laceration, abrasion, avulsion of skin and other (cellulitis, DVT) Lab Data Attestation: I reviewed the patient's lab results. 02/19/25 09:41 02/19/25 09:41 Labs: Lab Results 02/19/25 Range/Units 09:41 WBC 4.9 (4.5-10.0) K/mm3 RBC 4.52 L (4.6-6.20) M/mm3 Hgb 12.2 L (14.0-18.0) g/dL Hct 38.7 L (42.0-52.0) % MCV 85.6 (80-100) fl MCH 27.0 (26-34) pg MCHC 31.5 L (32-36) g/dl RDW 12.8 (11.5-14.5) % Plt Count 220 (150-375) k/mm3 MPV 9.2 (7.4-10.4) fl Immature Gran % (Auto) 0.2 (0-0.5) % Neut % (Auto) 74.8 H (45.5-73.1) % Lymph % (Auto) 13.0 L (18.3-44.2) % Cocke % (Auto) 8.5 (2.6-8.5) % Eos % (Auto) 2.7 (0-4.4) % Baso % (Auto) 0.8 (0.2-1.2) % Lymph # (Auto) 0.63 L (0.9-3.2) K/mm3 Cocke # (Auto) 0.4 (0.1-0.6) K/mm3 Eos # (Auto) 0.1 (0-0.3) K/mm3 Baso # (Auto) 0.0 (0.0-0.1) K/mm3 Abs Immat Gran (auto) 0.01 (0.00-0.031) K/mm3 Absolute Neuts (auto) 3.6 (1.3-6.7) K/mm3 Absolute Nucleated RBC 0.000 (0.0-0.012) K/mm3 Nucleated RBC % 0.0 (0.0-0.2) % ESR 14 (0-20) mm/hr PT 13.1 (11.1-14.7) Seconds INR 0.9 APTT 26.0 (22.3-36.8) Seconds Sodium 131 L (137-145) mmol/L Potassium 4.0 (3.4-5.0) mmol/L Chloride 101 (98-107) mmol/L Carbon Dioxide 22 (22-30) mmol/L Anion Gap 8 (4-12) mmol/L BUN 9 (9-20) mg/dL Creatinine 0.80 (0.7-1.3) mg/dL Estim Creat Clear Calc 90 ml/min Estimated GFR > 60 (59 - ) Glucose 137 H (65-110) mg/dL Calcium 9.4 (8.4-10.2) mg/dL Total Bilirubin 0.6 (0.2-1.3) mg/dL AST 22 (17-59) U/L ALT 16 (6-50) U/L Alkaline Phosphatase 54 (38-126) U/L C-Reactive Protein < 0.5 (<1.0) mg/dL Total Protein 7.0 (6.3-8.2) g/dL Albumin 4.2 (3.5-5.1) g/dL Imaging Data Radiologist's impression: ITS Impressions Venous Doppler Study 02/19/25 10:52 IMPRESSION: 1. No deep venous thrombosis in the left lower limb. 2. Minimal amount of likely chronic nonocclusive thrombus at the periphery of the left lesser saphenous vein. Critical Care Time Critical Care Time Critical Care Time: No Discharge Plan Discharge Clinical Impression: Cellulitis Qualifiers: Site of cellulitis: extremity Site of cellulitis of extremity: lower extremity Laterality: left Qualified Code(s): L03.116 - Cellulitis of left lower limb Patient Disposition: Home Condition: Stable Instructions: Antibiotic Form, Cellulitis (ED) Additional Instructions: Return if symptoms worsen or concerns: any increase in redness, swelling, pain or fever over 101 Take antibiotics as directed. Clean wound with mild soapy water. Apply antibiotic ointment and clean dressing at least twice daily. I am going to try to change up your oral antibiotic and we will await your culture results Follow up with primary care in the next 2-3 days for re-evaluation Patient Language: Barbadian Prescriptions: New doxycycline hyclate 100 mg tablet 100 mg PO BID 7 Days Qty: 14 0RF No Action vitamin B complex Tablet 1 tablet PO DAILY cholecalciferol (vitamin D3) [Vitamin D3] 2,000 unit Tablet 2,000 unit PO DAILY ambrisentan 5 mg tablet 5 mg PO DAILY guaifenesin [Mucinex] 600 mg tablet extended release 12hr 600 mg PO Q12H PRN (Reason: congestion) Trelegy Ellipta 100-62.5-25 mcg blister with device 1 inh inhalation DAILY Patient Comments: HS tolterodine 2 mg tablet 2 mg PO QHS levalbuterol tartrate 45 mcg/actuation HFA aerosol inhaler 1 puff inhalation Q6H Qty: 15 3RF methylprednisolone [Medrol (Dejuan)] 4 mg tablets,dose pack See Rx Instructions PO PER PKG DIR Qty: 21 0RF Rx Instructions: PO PER PKG DIR for 6 days amoxicillin-pot clavulanate 875-125 mg tablet 1 tablet PO BID Qty: 14 0RF sildenafil (pulm.hypertension) 20 mg tablet 20 mg PO TID Rx Instructions: administer doses at least 4-6 hours apart (DME) Prosthetic Supplies See Rx Instructions .Route .MEDSUPPLY Qty: 1 0RF Rx Instructions: As directed acetaminophen 500 mg capsule 500 mg PO Q6H PRN (Reason: pain) (DME) CPAP MASK RE-FIT See Rx Instructions .Route .MEDSUPPLY Qty: 1 0RF Rx Instructions: As directed spironolactone 50 mg tablet See Rx Instructions .ROUTE .COMPLEX Qty: 30 5RF Dose Instruction: TAKE 1 TABLET BY MOUTH EVERY DAY Rx Instructions: TAKE 1 TABLET BY MOUTH EVERY DAY gabapentin 300 mg capsule See Rx Instructions .ROUTE .COMPLEX Qty: 120 5RF Dose Instruction: TAKE 2 CAPSULES BY MOUTH TWICE A DAY Rx Instructions: TAKE 2 CAPSULES BY MOUTH TWICE A DAY trazodone 50 mg tablet See Rx Instructions .ROUTE .COMPLEX Qty: 60 5RF Dose Instruction: TAKE 2 TABLETS BY MOUTH AT BEDTIME FOR INSOMNIA Rx Instructions: TAKE 2 TABLETS BY MOUTH AT BEDTIME FOR INSOMNIA amlodipine 5 mg tablet 5 mg PO DAILY Qty: 90 1RF Follow-up/Referrals: Ly Egan, MEDICAL TECHNICIAN ASSISTANT [Advanced Practice Nurse] - Stand Alone Forms: Work/School Release IP
--- NOTE | 2025-02-19 11:23 | PC.NURSE ---
patient ambulatory to bathroom and back to bed with steady gait.
--- OUTSIDE RECORDS SUMMARY | 2025-02-19 11:31 | XMS_ITS | Clinical Summary ---
Author Organization [facility] Address [facility] [place] [address] Care Team Providers Care Iuss Acoustic Analyst Name Role Phone Unavailable Primary Care Provider [...]
--- OUTSIDE RECORDS SUMMARY | 2025-02-19 11:31 | XMS_ITS | Clinical Summary ---
Author Organization [facility] [address] [facility] [address] Address [address] [place] [address] Care Team Providers Care Fur Comber Name Role Phone Bobby Victoria DO Primary Care Provider [phone] Allergies Active Allergy Reactions Criticality Noted Date [...] Description 01/29/2025 9:30 AM CDT Office Visit [facility] Cardiology [address] [facility] [address] [place] [address] Terry Salas MD Pulmonary hypertension (HCC) (Primary Dx); Need for lipid screening 01/26/2025 Telephone [facility] [address] [place] [address] Terry Salas MD from Last 3 Months [...] on file 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 [address] [place] [id number] PCP - General Internal Medicine 01/29/25
--- OUTSIDE RECORDS SUMMARY | 2025-02-19 11:31 | XMS_ITS | Referral Summary ---
Author Organization [facility] [address] [place] [address] [address] [facility] [address] [place] [address] Care Team Providers Care Marinator Name Role Phone Bobby Victoria DO Primary Care Provider [phone] Encounters Date Type Department Care Team Description 01/29/2025 9:30 AM CDT Office Visit [facility] Cardiology [address] [facility] [address] [place] [address] Terry Salas MD Pulmonary hypertension (HCC) (Primary Dx); Need for lipid screening 01/26/2025 Telephone [facility] Medical [facility] Cardiology [address] [place] [address] [address] [place] [address] Terry Salas MD from Last [...] on file 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
--- OUTSIDE RECORDS SUMMARY | 2025-02-19 11:31 | XMS_ITS | Clinical Summary ---
Author Organization [facility] Address [address] [place] [address] Care Team Providers Care Jewelry Internship Name Role Phone Christine Foy MD Primary Care Provider [phone] Source Comments [facility] Affiliates and Associated Physician Practices is amultiple site organization consisting of ambulatory clinics and hospital sitesin [place], [place], [place] and [place]. This disclosure is being madepursuant to the Care Everywhere program and may not contain all information available regarding this patient. 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
[2025-02-19] MEDS: LIDOCAINE, EPINEPHRINE, TETRACAINE VISCOUS SOLN 3 ML TOPICAL (11:39)
--- NOTE | 2025-02-19 11:40 | PC.NURSE ---
LET ointment placed on wound with tagaderm keeping it in place at this time.
== END 2025-02-19 13:22 | disposition home or self-care (01) ==
PROVIDERS: Student in an Organized Health Care Education/Training Program; Emergency Provider Physician Assistant; PCP Internal Medicine
DX: L03.116 Cellulitis of left lower limb (principal); I27.20 Pulmonary hypertension, unspecified; E11.40 Type 2 diabetes mellitus with diabetic neuropathy, unspecified; J44.9 Chronic obstructive pulmonary disease, unspecified; G47.30 Sleep apnea, unspecified; M19.032 Primary osteoarthritis, left wrist; I82.812 Embolism and thrombosis of superficial veins of left lower extremity; Z85.46 Personal history of malignant neoplasm of prostate; Z86.16 Personal history of COVID-19; Z87.891 Personal history of nicotine dependence; Z89.511 Acquired absence of right leg below knee; Z98.42 Cataract extraction status, left eye; Z98.41 Cataract extraction status, right eye; Z90.79 Acquired absence of other genital organ(s); Z79.899 Other long term (current) drug therapy
CPT/HCPCS: 15853; 36415; 80053; 85025; 85610; 85652; 85730; 86140; 87070; 87075; 87205; 93971; 99284

== ENCOUNTER 2025-03-20 13:27 | Outpatient (CLI) | payer OTHER, MEDICARE, SELFPAY ==
--- NOTE | 2025-03-20 | ECHO_ITS ---
Patient Info Name: Terry Taveras Age: 70 years : 1955 Gender: Male Ht: 66 in Wt: 220 lbs BSA: 2.20 m2 HR: 68 bpm BP: 148 / 82 mmHg Heart Rhythm: Sinus Rhythm Technical Quality: Poor Exam Date: 03/20/2025 2:04 PM Patient Status: unknown Admit Date: 03/20/2025 Exam Type: CA echo dop color flow w con Complete two-dimensional, color flow and Doppler transthoracic echocardiogram is performed with contrast to opacify the left ventricle and to improve the deliniation of the left ventricle endocardial borders. Single Ending Machine Operator: Anne Marie Mcrae Attending Provider: Terry Salas MD Contrast/Agitated Saline Contrast/Ag. Saline: Definity Amount: 2.00 ml Administered By: Anne Marie Mcrae Existing IV Access: No IV Access Condition: patent with no signs of infiltration New IV Access: Left and Antecubital Space Site Condition: IV removed Reason for Poor Study: poor echocardiographic windows Summary 1. Technically difficult study with limited views. 2. Left ventricular chamber dimension is normal. 3. Left ventricular systolic function is normal, estimated at 60-65. 4. There is mildly increased left ventricular wall thickness. 5. The left ventricular diastolic function is grade I diastolic dysfunction. 6. Right ventricular systolic function is normal. 7. No significant valvular disease noted, although technically difficult study. 8. There is small anterior pericardial effusion with echogenic material. Left Ventricle Left ventricular chamber dimension is normal. Left ventricular systolic function is normal, estimated at 60-65. There is mildly increased left ventricular wall thickness. The left ventricular diastolic function is grade I diastolic dysfunction. Right Ventricle Right ventricular chamber dimension is normal. Right ventricular systolic function is normal. Left Atria Left atrial chamber dimension is normal. Right Atria Right atrial chamber dimension is normal. Atrial Septum Intact interatrial septum visualized by color flow imaging. Aortic Valve The aortic valve is not well visualized. There is no aortic valve stenosis. There is no aortic valve regurgitation. Pulmonic Valve The pulmonic valve is not well visualized. Mitral Valve There is trace mitral valve regurgitation. Tricuspid Valve There is trace tricuspid valve regurgitation. Pericardium/Pleural There is small anterior pericardial effusion with echogenic material. Inferior Vena Cava Normal inferior vena cava with <50% collapse upon inspiration consistent with elevated right atrial pressure, 8 mmHg. Aorta The aortic root size at the sinus of Valsalva is normal. Left Ventricular Outflow Tract Name Value Normal LVOT 2D LVOT Diameter 2.0 cm LVOT Doppler LVOT Peak Velocity 74 cm/s LVOT Peak Gradient 2 mmHg LVOT Mean Gradient 1 mmHg LVOT VTI 20 cm LVOT Stroke Volume 63 ml LVOT CO 4.3 l/min LVOT CI 2.0 l/min/m2 Pulmonic Valve Name Value Normal RVOT Doppler RVOT Peak Velocity 64 cm/s RVOT Peak Gradient 2 mmHg PV Doppler PV Peak Velocity 126 cm/s PV Peak Gradient 6 mmHg Mitral Valve Name Value Normal MV Diastolic Function MV E Peak Velocity 64 cm/s MV A Peak Velocity 86 cm/s MV E/A 0.7 MV Decel Time (PW) 288 ms MV Annular TDI MV E/e' (Septal) 8.8 MV E/e' (Lateral) 8.0 MV E/e' (Average) 8.4 Tricuspid Valve Name Value Normal Estimated PAP/RSVP RA Pressure 8 mmHg <=5 TV Annular TDI TV Lateral Adri s' Velocity 9.8 cm/s >=9.5 Aortic Valve Name Value Normal AV Doppler AV Peak Velocity 155 cm/s AV Peak Gradient 10 mmHg AV Area (Cont Eq Rojas) 1.5 cm2 AV DI (Rojas) 0.48 AV Regurgitation 2D LVOT Area 3.2 cm2 Ventricles Name Value Normal LV Dimensions 2D/MM IVS Diastolic Thickness (2D) 0.8 cm 0.6-1.0 LVID Diastole (2D) 5.0 cm 4.2-5.8 LVIW Diastolic Thickness (2D) 0.9 cm 0.6-1.0 LVID Systole (2D) 3.3 cm 2.5-4.0 LVOT Diameter 2.0 cm LV Mass (2D Cubed) 155.40 g 88.00-224.00 LV Mass Index (2D Cubed) 71 g/m2 49-115 Relative Wall Thickness (2D) 0.38 <=0.42 LV Fractional Shortening/Ejection Fraction 2D/MM LV Fractional Shortening (2D) 34 % 25-43 LV EF (2D Teichholz) 63 % LV Diastolic Volume (4C MOD) 103 ml LV EF (4C MOD) 70 % LV Diastolic Volume (2C MOD) 94 ml LV EF (2C MOD) 51 % LV Diastolic Volume (BP MOD) 108 ml 62-150 LV Diastolic Volume Index (BP MOD) 49 ml/m2 34-74 LV Systolic Volume (BP MOD) 40 ml 21-61 LV Systolic Volume Index (BP MOD) 18 ml/m2 11-31 LV EF (BP MOD) 63 % 52-72 LV Diastolic Length (4C) 8.2 cm LV Systolic Length (4C) 6.1 cm LV Stroke Volume (4C MOD) 71 ml Atria Name Value Normal LA Dimensions LA Volume (4C A-L) 40 ml LA Volume (BP A-L) 47 ml RA Dimensions RA Systolic Major [place] Length (4C) 5.6 cm 2.1-2.7 RA Area (4C) 15.4 cm2 <=18.0 Report Signatures
--- OUTSIDE RECORDS SUMMARY | 2025-03-20 14:12 | XMS_ITS | Clinical Summary ---
Author Organization [facility] Address [facility] [place] [address] Care Team Providers Care Plaster Patternmaker Name Role Phone Unavailable Primary Care Provider [...]
--- OUTSIDE RECORDS SUMMARY | 2025-03-20 14:12 | XMS_ITS | Clinical Summary ---
Author Organization [facility] Address [address] [address] Care Team Providers Care Warehouse Shipping Receiving Clerk Name Role Phone Christine Foy MD Primary Care Provider [phone] Source Comments [facility] Aff[facility]ates and Associated Physician Practices is amultiple site organization consisting of ambulatory clinics and hospital sitesin [place], [place]. This disclosure is being madepursuant to the Care Everywhere program and may not contain all information available regarding this patient. Last updated 18.[facility] Allergies Active Allergy Reactions Criticality Noted Date [...] on file Legal Sex Male 6:57 PM EYELET MAKER Gender Identity Not on file Sexual [...] to complete this topic Insurance Care Teams Warehouse Shipping Receiving Clerk Relationship Specialty Start Date End Date Christine Foy MD [address] [place], [place] [phone] PCP - General 06/16/18
--- OUTSIDE RECORDS SUMMARY | 2025-03-20 14:12 | XMS_ITS | Clinical Summary ---
Author Organization [facility] [place] [address] [facility] 162 Address [address] [place] [address] Care Team Providers Care Traffic Sergeant Name Role Phone Bobby Victoria DO Primary Care Provider +1- [phone] Allergies Active Allergy Reactions Criticality Noted Date [...] Description 01/29/2025 9:30 AM CDT Office Visit [facility] Cardiology [address] [facility] [address] [place] [address] Terry Salas MD Pulmonary hypertension (HCC) (Primary Dx); Need for lipid screening 01/26/2025 Telephone [facility] Cardiology [address] [place] [address] Terry Salas MD from Last 3 Months [...] on file 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
--- OUTSIDE RECORDS SUMMARY | 2025-03-20 14:12 | XMS_ITS | Referral Summary ---
Author Organization [facility] [address] [place] [address] 162 Address [address] [facility] [address] [place] [address] Care Team Providers Care Chargeback Analyst Name Role Phone Bobby Victoria DO Primary Care Provider +1- [phone] Encounters Date Type Department Care Team Description 01/29/2025 9:30 AM CDT Office Visit [facility] Cardiology [address] [facility] [address] [place] [address] Terry Salas MD Pulmonary hypertension (HCC) (Primary Dx); Need for lipid screening 01/26/2025 Telephone [facility] Medical [facility] Cardiology [address] [place] [address] [address] [place] [address] Terry Salas MD from Last [...] on file 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
[2025-03-20] MEDS: PERFLUTREN LIPID MICROSPHERES 1.5 ML VIAL DILUTED TO 10 ML TOTAL VOLUME IV PUSH (14:35)
--- NOTE | 2025-03-20 14:56 | IVDEFINITY ---
Prior to administration of IV Definity the patient was educated on the risks and benefits of the imaging enhancing agent including potential adverse side effects. The patient verbalized understanding. Allergies were verified. No exclusion criteria were identified and at least one of the following inclusion criteria were met: 1) physician request, 2) patient technically difficult to image (per the [place] [employer] of Echocardiography guidelines of two or more segments not discernable within the apical view), or 3) questionable left ventricular function. ?
== END 2025-03-20 13:28 | disposition home or self-care (01) ==
PROVIDERS: PCP Internal Medicine; Visit Provider Specialist
DX: R94.31 Abnormal electrocardiogram [ECG] [EKG] (principal); I27.20 Pulmonary hypertension, unspecified
CPT/HCPCS: C8929; Q9957

== ENCOUNTER 2025-03-23 07:14 | Outpatient (RCR) | payer OTHER, MEDICARE, SELFPAY ==
[2025-02-23 13:10] VITALS: BMI 36.3
== END 2025-05-14 08:17 | disposition home or self-care (01) ==
LOC: ANHWOC 07:14
PROVIDERS: PCP Internal Medicine; Visit Provider Nurse Practitioner
DX: S81.812D Laceration without foreign body, left lower leg, subsequent encounter (principal)
CPT/HCPCS: 99213; 99214; A9270; G0463

== ENCOUNTER 2025-04-12 10:15 | Outpatient (CLI) | payer OTHER, MEDICARE, SELFPAY ==
--- OUTSIDE RECORDS SUMMARY | 2025-04-12 10:22 | XMS_ITS | Referral Summary ---
Author Organization [place] [address] [place] [address] Care Team Providers Care Crowning Hammer Operator Name Role Phone Bobby Victoria DO Primary Care Provider [phone]- [phone] Encounters Date Type Department Care Team Description 03/22/2025 10:45 AM CDT Office Visit [facility] Medical Group Cardiology at [address] [place] [address] Terry Salas MD Pulmonary hypertension (HCC) (Primary Dx) 2025 Orders Only [facility] Health Information Management [address] [place] [address] Terry Salas MD 01/29/2025 9:30 AM CDT Office Visit [facility] Cardiology [address] [place] [address] [address] [place] [address] Terry Salas MD Pulmonary hypertension (HCC) (Primary Dx); Need for lipid screening 01/26/2025 Telephone [facility] Cardiology [address] [place] [address] 162 [address] [place] [address] Terry Salas MD from Last [...] mg,2 tablets by mouth BID, Reported on 03/22/2025 omeprazole 20 mg tablet,delayed release (DR/EC) take [...] on file 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 Gender Identity Not on file Sexual Orientation Not on file Last Filed Vital Signs Vital Sign Reading Time Taken Comments Blood Pressure 128/74 03/22/2025 10:53 AM CDT Pulse 66 03/22/2025 10:53 AM CDT Temperature - - Respiratory Rate - - Oxygen Saturation 95% 03/22/2025 10:53 AM CDT Inhaled Oxygen Concentration - - Weight 100.7 kg (222 lb) 03/22/2025 10:53 AM CDT Height 168.9 cm (5' 6.5) 03/22/2025 10:53 AM CD T Body Mass Index 35.29 03/22/2025 10:53 AM CDT Plan of Treatment Not on file Procedures Procedure Name Priority Date/Time Associated Diagnosis Comments CARDIOLOGY DOCUMENT SCAN 2025 POCT LIPID PANEL Routine 01/29/2025 9:41 AM CDT Need for lipid screening from Last 3 Months Results * Cardiology Document Scan (2025) Anatomical Region Laterality Modality Other us Terry Salas MD CV CARDIAC SERVICES PROC EDURES Final Result * POCT lipid panel (01/29/2025 9:41 AM CDT) Cholesterol, POC 163 mg/dL Comment:GLU = 121 HDL, POC 78 mg/dL Triglycerides, POC 73 mg/dL LDL Cholesterol POC 71 mg/dL Chol/HDL Ratio, POC 0.9 Non-HDL Cholesterol, POC 85 mg/dL Cholesterol Total, POC 163 mg/dL Capillary blood 01/29/2025 9 :41 AM CDT us Terry Salas MD POINT OF CARE TEST ORDER JOHNNY Final Result from Last 3 Months Insurance MEDICARE MEDICARE [facility] Care Teams Crowning Hammer Operator Relationship Specialty Start Date End Date Bobby Victoria DO [address] [place] [address] [place] [address] PCP - General Internal Medicine 01/29/25
--- OUTSIDE RECORDS SUMMARY | 2025-04-12 10:22 | XMS_ITS | Encounter Summary ---
Author Organization [facility] Healthcare Address [address] [place] [address] Care Team Providers Care Human Resources Director Name Role Phone Christine Foy MD Primary Care Provider [phone] Bobby Victoria DO Primary Care Provider [phone]- [phone] Encounter Details Date Type Department Care Team (Late st Contact Info) Description 02/01/2018 Orders Only [facility] Health Information Management [address] [place] [address] Scanning, Provider Social History Tobacco Use Types Packs/Day Years Used Date Smoking Tobacco: Former Cigarettes Q uit: 10/04/2011 Alcohol Use Standard Drinks/Week Comments Yes 0 (1 standard drink = 0.6 oz pur e alcohol) Sex and Gender Information Value Date Recorded Sex Assigned at Not on file 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 Gender Identity Not on file Sexual Orientation Not on file documented as of this encounter Plan of Treatment Not on file documented as of this encounter Procedures Procedure Name Priority Date/Time Associated Diagnosis Comments CARDIOLOGY DOCUMENT SCAN 02/01/2018 documented in this encounter Results * Cardiology Document Scan (02/01/2018) Anatomical Region Laterality Modality Other us Provider Scanning CV CARDIAC SERVICES PROCEDURES Final Result documented in this encounter Visit Diagnoses Not on filedocumented in this encounter Care Teams Human Resources Director Relationship Specialty Start Date End Date Christine Foy MD [address] [place] [address] PCP - General 11/11/12 01/28/25 Bobby Victoria DO [address] [place] [address] [place] [address] PCP - General Internal Medicine 01/29/25 documented as of this encounter
--- OUTSIDE RECORDS SUMMARY | 2025-04-12 10:22 | XMS_ITS | Clinical Summary ---
Author Organization [facility] 6810 [facility] 162 Address [address] [place] [address] Care Team Providers Care Deportation Officer Name Role Phone Bobby Victoria DO Primary Care Provider +1- [phone] Allergies Active Allergy Reactions Criticality Noted Date [...] Description 03/22/2025 10:45 AM CDT Office Visit [facility] Medical Group Cardiology at [address] [place] [address] Terry Salas MD Pulmonary hypertension (HCC) (Primary Dx) 2025 Orders Only [facility] Health Information Management [address] [place] [address] eTrry Salas MD 01/29/2025 9:30 AM CDT Office Visit [facility] Cardiology 10 [facility] 162 [address] [place] [address] Terry Salas MD Pulmonary hypertension (HCC) (Primary Dx); Need for lipid screening 01/26/2025 Telephone [facility] Cardiology 68[address] [facility] 162 [address] [place] [address] Terry Salas MD from Last 3 Months [...] on file 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 [address] [place] [address] MEDICARE [facility] [place] Care Teams Deportation Officer Relationship Specialty Start Date End Date Bobby Victoria DO [address] [facility] [place] [address] PCP - General Internal Medicine 01/29/25
--- OUTSIDE RECORDS SUMMARY | 2025-04-12 10:22 | XMS_ITS | Clinical Summary ---
Author Organization [facility] [employer] [facility] [employer] Address [address] [place] [address] Care Team Providers Care Compugraph Operator Name Role Phone Christine Foy MD Primary Care Provider [phone] Source Comments [facility] Affiliates and Associated Physician Practices is amultiple site organization consisting of ambulatory clinics and hospital sitesin [place], [place], [place] and [place]. This disclosure is being madepursuant to the Care Everywhere program and may not contain all information available regarding this patient. 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
--- OUTSIDE RECORDS SUMMARY | 2025-04-12 10:22 | XMS_ITS | Clinical Summary ---
Author Organization [facility] Address [facility] [place] [address] Care Team Providers Care Zoogler Name Role Phone Unavailable Primary Care Provider [...]
--- OUTSIDE RECORDS SUMMARY | 2025-04-12 10:22 | XMS_ITS | Encounter Summary ---
Author Organization [facility] Healthcare Address [address] [place] [address] Care Team Providers Care Produce Sorter Name Role Phone Bobby Victoria DO Primary Care Provider [phone]- [phone] Encounter Details Date Type Department Care Team (Late st Contact Info) Description 2025 Orders Only [facility] Health Information Management [address] [place] [address] Terry Salas MD [address] [address] Social History Tobacco Use Types Packs/Day Years Used Date Smoking Tobacco: Former Cigarettes Smokeless Tobacco: Never Alcohol Use Standard Drinks/Week Comments Yes 0 (1 standard drink = 0.6 oz pur e alcohol) Sex and Gender Information Value Date Recorded Sex Assigned at Not on file 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 Gender Identity Not on file Sexual Orientation Not on file documented as of this encounter Plan of Treatment Not on file documented as of this encounter Procedures Procedure Name Priority Date/Time Associated Diagnosis Comments CARDIOLOGY DOCUMENT SCAN 2025 documented in this encounter Results * Cardiology Document Scan (2025) Anatomical Region Laterality Modality Other us Terry Salas MD CV CARDIAC SERVICES PROC EDURES Final Result documented in this encounter Visit Diagnoses Not on filedocumented in this encounter Care Teams Produce Sorter Relationship Specialty Start Date End Date Bobby Victoria DO [address] [facility] [address] M[address]Y [address] [place] [address] PCP - General Internal Medicine 01/29/25 documented as of this encounter
[2025-04-12 10:40] VITALS: PULSE 65; O2SAT 94
[2025-04-12 10:41] VITALS: PULSE 76; O2SAT 91
[2025-04-12 10:42] VITALS: PULSE 77; O2SAT 90
[2025-04-12 10:43] VITALS: PULSE 84; O2SAT 90
[2025-04-12 10:44] VITALS: PULSE 86; O2SAT 90
[2025-04-12 10:46] VITALS: PULSE 86; O2SAT 90
--- NOTE | 2025-04-13 10:26 | WPDSIXMINUTE ---
Six Minute Walk Procedure Procedure Performed Pulmonary Stress Test (6 min walk) Six Minute Walk Six Minute Walk: This is a 6 minute walk test. The test was performed and interpreted in accordance with the 2014 ERS/ATS task force guidelines. Findings: The patient's resting room air oxygen saturation measured by pulse oximetry was 94%, the heart rate was 65 bpm, and the modified [place] dyspnea score was 0.5. Patient ambulated for 244 meters and oxygen saturation remained 90 to 91%. At the end of the study the heart rate was 86 bpm and the modified [place] dyspnea score was 3. The patient did not qualify for supplemental oxygen at rest or with ambulation. There are no prior studies for comparison.
--- NOTE | 2025-04-13 10:28 | WPDPFTINT ---
PFT Procedure Performed PFT Procedure Performed Plethysmography (Lung Vol) Diffusing Cap (DLCO) Flow Vol Loop Spirometry w/o Bronchodil PFT Interpretation This is a pulmonary function test with spirometry, plethysmography and diffusing capacity. The test was performed and results interpreted in accordance with the 2019 and 2005 ATS/ERS Task Force guidelines respectively using the Global Lung Function Initiative-2012 reference equations. Patient demonstrated good effort and cooperation. Reproducibility criteria were met. The quality of the spirometry maneuver was Grade A. Findings: Spirometry: There is decreased maximal expiratory airflow at low lung volumes with concave expiratory flow tracing. The contour the inspiratory flow tracing is normal. The FVC is 2.96 L, 78% predicted. The FEV1 is 1.92 L, 66% predicted. The FEV1: FVC ratio 65%. Plethysmography: The total lung capacity is 5.32 L, 85% predicted. The functional residual capacity is 3.12 L, 96% predicted. The residual volume is 2.12 L, 97% predicted. Diffusing capacity: The diffusing capacity unadjusted for hemoglobin and carboxyhemoglobin is 12.9, 52% predicted. The diffusing capacity adjusted for alveolar volume is 3.06, 72% predicted. In comparison to previous pulmonary function testing on 02/04/2024: The pre bronchodilator FVC is unchanged from 2.88 L to 2.96 L. The pre bronchodilator FEV1 is unchanged from 1.80 L to 1.92 L. the total lung capacity is unchanged from 5.45 L to 5.32 L. The functional residual capacity is unchanged from 3.02 L to 3.12 L. The residual volume is unchanged from 2.18 L to 2.12 L. The diffusing capacity unadjusted for hemoglobin and carboxyhemoglobin is unchanged from 11.7 to 12.9. The diffusing capacity adjusted for alveolar volume is unchanged from 2.79 to 3.06. Impression: The FEV1 is less than 80% predicted and the FEV1: FVC ratio is greater than the lower limit of normal consistent with Preserved Ratio Impaired Spirometry (PRISm) with a normal FVC. The lung volumes are normal. The diffusing capacity unadjusted for hemoglobin and carboxyhemoglobin is moderately decreased and normalizes when adjusted for alveolar volume. In comparison to previous pulmonary function testing on 02/04/2024 there has been no significant change in the FVC, FEV1, total lung capacity, functional residual capacity, residual volume or diffusing capacity. Clinical correlation is recommended.
== END 2025-04-12 10:16 | disposition home or self-care (01) ==
PROVIDERS: PCP Internal Medicine
DX: J43.9 Emphysema, unspecified (principal); I27.20 Pulmonary hypertension, unspecified; G47.33 Obstructive sleep apnea (adult) (pediatric); Z87.891 Personal history of nicotine dependence
CPT/HCPCS: 94375; 94618; 94726; 94729

== ENCOUNTER 2025-05-04 00:38 | Day surgery (SDC) | payer OTHER, MEDICARE, SELFPAY ==
[2025-05-03 10:46] VITALS: BMI 35.6
--- OUTSIDE RECORDS SUMMARY | 2025-05-04 00:42 | XMS_ITS | Encounter Summary ---
Author Organization [facility] Healthcare Address [address] [place] [address] Care Team Providers Care Senior Accounts Payable Specialist Name Role Phone Bobby Victoria DO Primary Care Provider [phone]- [phone] Encounter Details Date Type Department Care Team (Late st Contact Info) Description 2025 Orders Only [facility] Information Management [address] [place] [address] Terry Salas MD [address] [address] Social History Tobacco Use Types Packs/Day Years Used Date Smoking Tobacco: Former Cigarettes Smokeless Tobacco: Never Alcohol Use Standard Drinks/Week Comments Yes 0 (1 standard drink = 0.6 oz pur e alcohol) Sex and Gender Information Value Date Recorded Sex Assigned at Not on file 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
--- OUTSIDE RECORDS SUMMARY | 2025-05-04 00:42 | XMS_ITS | Clinical Summary ---
Author Organization [facility] [address] [facility] 162 Address [address] [place] [address] Care Team Providers Care Diesel Engine Fitter Name Role Phone Bobby Victoria DO Primary Care Provider +1- [phone] Allergies Active Allergy Reactions Criticality Noted Date [...] Description 03/22/2025 10:45 AM CDT Office Visit [facility] Medical Group Cardiology at [address] [place] [address] Terry Salas MD Pulmonary hypertension (HCC) (Primary Dx) 2025 Orders Only [facility] Health Information Management [address] [place] [address] Terry Salas MD from Last 3 Months [...] on file 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 Gender Identity Not on file Sexual Orientation [...] Well Visit 65+ 2022 Influenza Vaccine (#1) 2025 08/02/2018 Procedures Procedure Name Priority Date/Time Associated Diagnosis Comments CARDIOLOGY DOCUMENT SCAN 2025 from Last 3 Months Results * Cardiology Document Scan (2025) Anatomical Region Laterality Modality Other Terry Salas MD CV CARDIAC SERVICES PROC EDURES Final Result from Last 3 Months Insurance MEDICARE MEDICARE [facility] Care Teams Diesel Engine Fitter Relationship Specialty Start Date End Date Bobby Victoria DO [address] [facility] [address] [place] [id number] PCP - General Internal Medicine 01/29/25
--- OUTSIDE RECORDS SUMMARY | 2025-05-04 00:42 | XMS_ITS | Encounter Summary ---
Author Organization [facility] Healthcare Address [address] [place] [address] Care Team Providers Care Plate Developer Name Role Phone Christine Foy MD Primary Care Provider [phone] Bobby Victoria DO Primary Care Provider [phone]- [phone] Encounter Details Date Type Department Care Team (Late st Contact Info) Description 02/01/2018 Orders Only [facility] [place] Information Management [address] [place] [address] Scanning, Provider Social History Tobacco Use Types Packs/Day Years Used Date Smoking Tobacco: Former Cigarettes Q uit: 10/04/2011 Alcohol Use Standard Drinks/Week Comments Yes 0 (1 standard drink = 0.6 oz pur e alcohol) Sex and Gender Information Value Date Recorded Sex Assigned at Not on file 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
--- OUTSIDE RECORDS SUMMARY | 2025-05-04 00:42 | XMS_ITS | Clinical Summary ---
Author Organization [facility] [employer] Address [address] [place] [address] Care Team Providers Care Director Of Compensation Name Role Phone Christine Foy MD Primary Care Provider [phone] Source Comments [facility] Affiliates and Associated Physician Practices is amultiple site organization consisting of ambulatory clinics and hospital sitesin [place], [place], [place] and [place]. This disclosure is being madepursuant to the Care Everywhere program and may not contain all information available regarding this patient. 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
--- OUTSIDE RECORDS SUMMARY | 2025-05-04 00:42 | XMS_ITS | Referral Summary ---
Author Organization [facility] [place] [address] [facility] 162 Address [address] [place] [address] Care Team Providers Care Hand Brush Filler Name Role Phone Bobby Victoria DO Primary Care Provider [phone]- [phone] Encounters Date Type Department Care Team Description 03/22/2025 10:45 AM CDT Office Visit [facility] Medical Group Cardiology at [address] [place] [address] Terry Salas MD Pulmonary hypertension (HCC) (Primary Dx) [address] 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 Final Result from Last 3 Months Insurance MEDICARE MEDICARE [facility] Care Teams Hand Brush Filler Relationship Specialty Start Date End Date Bobby Victoria DO [facility] [facility] [address] M[address]ARRY [address] [place] [address] PCP - General Internal Medicine 01/29/25
--- OUTSIDE RECORDS SUMMARY | 2025-05-04 00:43 | XMS_ITS | Clinical Summary ---
Author Organization [facility] Address [facility] [place] [address] Care Team Providers Care Machinist Wood Name Role Phone Unavailable Primary Care Provider [...]
[2025-05-04 11:15] VITALS: BP 138/66; PULSE 67; RESP 18; TEMP 36.5; O2SAT 97
--- NOTE | 2025-05-04 12:08 | P.PNAN_ITS ---
Anes - Initial Pre Proc Eval Procedure: Operation Date: 05/04/25 12:30 Proposed Procedures p Esophagogastroduodenoscopy - Capo Porras MD Date/Time: 05/04/25 12:08 Surgeon: Capo Porras MD Pre Op Diagnosis: Nausea Patient Data Age: 70 Gender: M Height: 1.68 m Weight: 97.3 kg Last Vital Signs Temp 36.5 C 05/04/25 11:15 Pulse 67 05/04/25 11:15 Resp 18 05/04/25 11:15 BP 138/66 05/04/25 11:15 Pulse Ox 97 05/04/25 11:15 O2 Del Method Room Air 05/04/25 11:15 Allergies Allergy/AdvReac Type Severity Reaction Status Date / Time atropine Allergy Severe EYE Verified 05/04/25 11:13 SWELLING Home Medications ?Medication ?Instructions ?Recorded ?Confirmed ?Type cholecalciferol (vitamin D3) 50 2,000 unit PO DAILY 08/22/19 05/04/25 History mcg (2,000 unit) tablet (Vitamin D3) vitamin B complex 1 tablet PO DAILY 08/22/19 05/04/25 History ambrisentan 5 mg tablet 5 mg PO DAILY 04/20/22 05/04/25 History CPAP MASK RE-FIT #1 ea 05/17/23 04/27/25 Rx fluticasone fur. 100 mcg-umeclid 1 inh inhalation DAILY 08/09/23 05/04/25 History 62.5 mcg-vilant 25 mcg inhalat.powder (Trelegy Ellipta) gabapentin 300 mg capsule See Rx Instructions .Route 10/12/24 05/04/25 Rx .COMPLEX #120 caps tolterodine 2 mg tablet 2 mg PO QHS 10/23/24 05/04/25 History acetaminophen 500 mg capsule 500 mg PO Q6H PRN pain 12/11/24 05/03/25 History trazodone 50 mg tablet See Rx Instructions .Route 01/22/25 05/04/25 Rx .COMPLEX #60 tabs amlodipine 5 mg tablet 5 mg PO DAILY #90 tabs 02/01/25 05/04/25 Rx ondansetron HCl 4 mg tablet 4 mg PO Q6H PRN nausea and 03/21/25 05/03/25 Rx vomiting #20 tabs spironolactone 50 mg tablet See Rx Instructions .Route 04/20/25 05/04/25 Rx .COMPLEX #30 tabs levalbuterol tartrate 45 1 puff inhalation Q6H #15 grams 04/23/25 05/04/25 Rx mcg/actuation aerosol inhaler Prosthetic supplies #1 ea 04/27/25 04/27/25 Rx sildenafil (pulm.hypertension) 20 20 mg PO BID 04/27/25 05/04/25 History mg tablet Patient hx anesthesia problems: none Family hx anesthesia problems: none Results Review: All pre-operative results and documents have been reviewed as part of the pre- operative evaluation. 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 Pulmonary HTN Carpal tunnel syndrome on both sides Convex pes valgus of 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 Rheumatoid arthritis, seronegative, multiple sites (~2017) Type 2 diabetes mellitus with diabetic neuropathy, with long-term current use of insulin Prostate cancer Sleep apnea COPD (chronic obstructive pulmonary disease) Dyspnea Vision loss Surgical History Surgical History History of cataract surgery both eyes Hx of BKA (~2012) Hx of transurethral resection of prostate Family History Family History Father Hypertension Family history of diabetes mellitus in first degree relative Family history of emphysema Diabetes mellitus Family history of chronic obstructive pulmonary disease Sibling Family history of heart disease in male family member before age 55 Family history of cardiovascular disease, Onset Age: 50 Acute myocardial infarction, Onset Age: 50 Carcinoma of colon 4th brother Mother Family history of osteoarthritis Family history of arthritis Grandparent Family history of liver disease Family history of condition Family history of malignant neoplasm of cervix Family history of coronary artery disease Family history of cardiovascular disease Family history of malignant neoplasm Other Family history of alcoholism Social History Social History Smoking packs per day: 1 Smoking cigarettes per day: 20.0 Years smoked: 30 Smoking pack-years: 30.00 Smoking status: Former smoker Tobacco type: cigarettes Smoking end date: 10/04/10 Additional smoking assessment comments: still smokes occ cigar Alcohol intake: current Drinks per week: 6 Substance use: current Substance use type: marijuana Other substance usage details: Gummies daily Last use: 05/02 Living arrangements: with family Additional living arrangements comments: Occupation/Education: retired Gender identity (if verbalized by the patient): Male Spiritual care concerns: No Anes - Eval Final PreProcedure Day of Procedure 05/04/25 12:08 Patient weight: obese Heart: regular rate and rhythm Lungs: decreased breath sounds Airway: Mallampati scale class II Neurological: alert and oriented Last oral intake: >/= 8 hours ASA classification: III Emergent: no Anesthetic plan: proceed Anesthesia type and monitoring: general GIVS and standard monitoring Results Review: All pre-operative results and documents have been reviewed as part of the pre- operative evaluation. Informed Consent: The patient's anesthetic plan and its attendant risks and benefits were discussed with the patient/family/POA. Questions were solicited and answers provided to the satisfaction of the patient/family/POA.
[2025-05-04] MEDS: LACTATED RINGERS 1,000 ML 150 ML IV CONT (12:34)
--- NOTE | 2025-05-04 12:41 | PM.HPGS ---
History of Present Illness History of Present Illness Consent: Risks, benefits, and alternatives have been discussed and questions answered. Patient agrees to proceed with procedure. Chief complaint: Nausea Narrative: Terry Taveras is a 70 year old male here with nausea, egd today Review of Systems Review of Systems: All systems reviewed & are unremarkable except as noted in HPI and below PMFSH Past Medical History Medical History Nonunion of joint fusion Charcot's joint of foot, non-diabetic Clawtoe, acquired Hyponatremia Long-term current use of testosterone cypionate Arthropathy of ankle Gall bladder stones Fibrosing alveolitis Bilateral wrist pain Male hypogonadism COVID-19 History of malignant neoplasm of prostate Laceration of knee without complication Avulsion fracture of distal phalanx of finger Arthritis of wrist, left Encounter for orthopedic follow-up care 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 Pulmonary HTN Carpal tunnel syndrome on both sides Convex pes valgus of 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 Rheumatoid arthritis, seronegative, multiple sites (~2018) Type 2 diabetes mellitus with diabetic neuropathy, with long-term current use of insulin Prostate cancer Sleep apnea COPD (chronic obstructive pulmonary disease) Dyspnea Vision loss Surgical History Surgical History History of cataract surgery both eyes Hx of BKA (~2012) Hx of transurethral resection of prostate Family History Family History Father Hypertension Family history of diabetes mellitus in first degree relative Family history of emphysema Diabetes mellitus Family history of chronic obstructive pulmonary disease Sibling Family history of heart disease in male family member before age 55 Family history of cardiovascular disease, Onset Age: 50 Acute myocardial infarction, Onset Age: 50 Carcinoma of colon 4th brother Mother Family history of osteoarthritis Family history of arthritis Grandparent Family history of liver disease Family history of condition Family history of malignant neoplasm of cervix Family history of coronary artery disease Family history of cardiovascular disease Family history of malignant neoplasm Other Family history of alcoholism Social History Social History Smoking packs per day: 1 Smoking cigarettes per day: 20.0 Years smoked: 30 Smoking pack-years: 30.00 Smoking status: Former smoker Tobacco type: cigarettes Smoking end date: 10/04/10 Additional smoking assessment comments: still smokes occ cigar Alcohol intake: current Drinks per week: 6 Substance use: current Substance use type: marijuana Other substance usage details: Gummies daily Last use: 05/02 Living arrangements: with family Additional living arrangements comments: Occupation/Education: retired Gender identity (if verbalized by the patient): Male Spiritual care concerns: No Meds Home Medications and Allergies Home Medications ?Medication ?Instructions ?Recorded ?Confirmed ?Type cholecalciferol (vitamin D3) 50 2,000 unit PO DAILY 08/22/19 05/04/25 History mcg (2,000 unit) tablet (Vitamin D3) vitamin B complex 1 tablet PO DAILY 08/22/19 05/04/25 History ambrisentan 5 mg tablet 5 mg PO DAILY 04/20/22 05/04/25 History CPAP MASK RE-FIT #1 ea 05/17/23 04/27/25 Rx fluticasone fur. 100 mcg-umeclid 1 inh inhalation DAILY 08/09/23 05/04/25 History 62.5 mcg-vilant 25 mcg inhalat.powder (Trelegy Ellipta) gabapentin 300 mg capsule See Rx Instructions .Route 10/12/24 05/04/25 Rx .COMPLEX #120 caps tolterodine 2 mg tablet 2 mg PO QHS 10/23/24 05/04/25 History acetaminophen 500 mg capsule 500 mg PO Q6H PRN pain 12/11/24 05/03/25 History trazodone 50 mg tablet See Rx Instructions .Route 01/22/25 05/04/25 Rx .COMPLEX #60 tabs amlodipine 5 mg tablet 5 mg PO DAILY #90 tabs 02/01/25 05/04/25 Rx ondansetron HCl 4 mg tablet 4 mg PO Q6H PRN nausea and 03/21/25 05/03/25 Rx vomiting #20 tabs spironolactone 50 mg tablet See Rx Instructions .Route 04/20/25 05/04/25 Rx .COMPLEX #30 tabs levalbuterol tartrate 45 1 puff inhalation Q6H #15 grams 04/23/25 05/04/25 Rx mcg/actuation aerosol inhaler Prosthetic supplies #1 ea 04/27/25 04/27/25 Rx sildenafil (pulm.hypertension) 20 20 mg PO BID 04/27/25 05/04/25 History mg tablet Allergies Allergy/AdvReac Type Severity Reaction Status Date / Time atropine Allergy Severe EYE Verified 05/04/25 11:13 SWELLING Vital Signs Vital Signs - 24 hr 05/04/25 11:15 Temperature 97.7 F Pulse Rate 67 Respiratory Rate 18 Blood Pressure 138/66 Pulse Oximetry 97 Oxygen Delivery Room Air Exam Const: General: comfortable and no acute distress HENMT: Face/Nose/Sinus: Normal nares present Eyes: General: appearance normal, both eyes and all related structures Neck: Neck: no JVD Resp: Auscultation: clear to auscultation bilaterally Cardio: Rate: regular rate Rhythm: regular rhythm GI: Inspection: non-distended GI Palp: Yes Soft to palpation Skin: General skin exam: normal color Neuro: Speech: normal speech Extrem: General: normal to inspection Psych: Mental Status: mental status grossly normal Assessment and Plan Assessment and plan (1) Nausea: Code(s): R11.0 - Nausea Status: Acute Assessment and Plan: egd with bx
--- NOTE | 2025-05-04 12:48 | S_PTH ---
PATIENT: Terry Taveras LOC: [facility]LEXANDRA Parks#:[id number] AGE/SX: 70/M ROOM: RE05/04/[address]: Capo Porras MD : 1955 BED: DIS: 05/04/2025 SPEC #: [id number] RECD: 05/07/25 08:09 STATUS: MELANIE REJaren #: [id number] JOHNATHAN: 05/04/25 12:[address]: Capo Porras DEPT: [facility] Surgical RECD BY: Estephania Manuel ENTERED: 05/07/25 08:13 SP TYPE: Surgical OTHR DR: Ly Egan, NORRIS Tissues: A - Gastric Biopsy B - Small Bowel Bx Procedures: Hematoxylin and Eosin Stain Gross and Microscopic Level 4
[2025-05-04 12:51] VITALS: BP 92/53; PULSE 70; RESP 22; O2SAT 94
[2025-05-04 13:01] VITALS: BP 126/68; PULSE 61; RESP 23; O2SAT 95
[2025-05-04 13:11] VITALS: RESP 20; O2SAT 96
== END 2025-05-04 13:06 | disposition home or self-care (01) ==
PROVIDERS: PCP Nurse Practitioner; Referring Provider Nurse Practitioner; Visit Provider Internal Medicine Gastroenterology
PROC: 0DJ08ZZ Inspection of Upper Intestinal Tract, Via Natural or Artificial Opening Endoscopic (ICD-10-PCS; CPT 43239; principal; 2025-05-04 12:30)
DX: K29.50 Unspecified chronic gastritis without bleeding (principal); E11.21 Type 2 diabetes mellitus with diabetic nephropathy; J44.9 Chronic obstructive pulmonary disease, unspecified; J84.112 Idiopathic pulmonary fibrosis; E29.1 Testicular hypofunction; M19.032 Primary osteoarthritis, left wrist; I27.20 Pulmonary hypertension, unspecified; G56.03 Carpal tunnel syndrome, bilateral upper limbs; M06.09 Rheumatoid arthritis without rheumatoid factor, multiple sites; G47.30 Sleep apnea, unspecified; F17.290 Nicotine dependence, other tobacco product, uncomplicated; F12.90 Cannabis use, unspecified, uncomplicated; E66.9 Obesity, unspecified; Z68.34 Body mass index [BMI] 34.0-34.9, adult; Z79.51 Long term (current) use of inhaled steroids; Z79.4 Long term (current) use of insulin; Z79.890 Hormone replacement therapy; Z99.89 Dependence on other enabling machines and devices; Z98.890 Other specified postprocedural states; Z89.511 Acquired absence of right leg below knee; Z90.79 Acquired absence of other genital organ(s); Z85.46 Personal history of malignant neoplasm of prostate; Z87.19 Personal history of other diseases of the digestive system; Z80.0 Family history of malignant neoplasm of digestive organs; Z80.49 Family history of malignant neoplasm of other genital organs; Z82.49 Family history of ischemic heart disease and other diseases of the circulatory system
CPT/HCPCS: 43239; 88305; J2704; J7120

== ENCOUNTER 2025-05-15 14:38 | Outpatient (CLI) | payer OTHER, MEDICARE, SELFPAY ==
--- OUTSIDE RECORDS SUMMARY | 2025-05-15 15:05 | XMS_ITS | Encounter Summary ---
Author Organization [facility] Healthcare Address [address] [place] [address] Care Team Providers Care Diesel Engine I Pipe Fitter Name Role Phone Christine Foy MD Primary Care Provider [phone] Bobby Victoria DO Primary Care Provider [phone] Encounter Details Date Type Department Care Team (Late st Contact Info) Description 01/26/2025 Orders Only [facility] Health Information Management [address] [place] [address] Scanning, Provider Social History Tobacco Use Types Packs/Day Years Used Date Smoking Tobacco: Former Cigarettes Smokeless Tobacco: Never Alcohol Use Standard Drinks/Week Comments Yes 0 (1 standard drink = 0.6 oz pur e alcohol) Sex and Gender Information Value Date Recorded Sex Assigned at Not on file 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 Gender Identity Not on file Sexual Orientation Not on file documented as of this encounter Plan of Treatment Not on file documented as of this encounter Procedures Procedure Name Priority Date/Time Associated Diagnosis Comments SCAN - RADIOLOGY/IMAGING 01/26/2025 documented in this encounter Results * SCAN - RADIOLOGY/IMAGING (01/26/2025) Anatomical Region Laterality Modality Other us Provider Scanning Final Result documented in this encounter Visit Diagnoses Not on filedocumented in this encounter Care Teams Diesel Engine I Pipe Fitter Relationship Specialty Start Date End Date Christine Foy MD [address] [place] [address] PCP - General 11/11/12 01/28/25 Bobby Victoria, [address] [place] [address] [place] [address] PCP - General Internal Medicine 01/29/25 documented as of this encounter
--- OUTSIDE RECORDS SUMMARY | 2025-05-15 15:05 | XMS_ITS | Encounter Summary ---
Author Organization [facility] Healthcare Address [address] [place] [address] Care Team Providers Care Broaching Machine Set Up Operator Name Role Phone Christine Foy MD Primary Care Provider [phone] Bobby Victoria DO Primary Care Provider [phone] Encounter Details Date Type Department Care Team (Late st Contact Info) Description 02/01/2018 Orders Only [facility] Health Information Management [address] [place] [address] Scanning, Provider Social History Tobacco Use Types Packs/Day Years Used Date Smoking Tobacco: Former Cigarettes Q uit: 10/04/2011 Alcohol Use Standard Drinks/Week Comments Yes 0 (1 standard drink = 0.6 oz pur e alcohol) Sex and Gender Information Value Date Recorded Sex Assigned at Not on file 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
--- OUTSIDE RECORDS SUMMARY | 2025-05-15 15:05 | XMS_ITS | Encounter Summary ---
Author Organization [facility] Healthcare Address [address] [place] [address] Care Team Providers Care Ripsaw Operator Name Role Phone Christine Foy MD Primary Care Provider [phone] Bobby Victoria DO Primary Care Provider [phone] Encounter Details Date Type Department Care Team (Late st Contact Info) Description 12/19/2024 Orders Only [facility] Health Information Management [address] [place] [address] Scanning, Provider Social History Tobacco Use Types Packs/Day Years Used Date Smoking Tobacco: Former Cigarettes Smokeless Tobacco: Never Alcohol Use Standard Drinks/Week Comments Yes 0 (1 standard drink = 0.6 oz pur e alcohol) Sex and Gender Information Value Date Recorded Sex Assigned at Not on file 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 Gender Identity Not on file Sexual Orientation Not on file documented as of this encounter Plan of Treatment Not on file documented as of this encounter Procedures Procedure Name Priority Date/Time Associated Diagnosis Comments CARDIOLOGY DOCUMENT SCAN 12/19/2024 documented in this encounter Results * Cardiology Document Scan (12/19/2024) Anatomical Region Laterality Modality Other us Provider Scanning CV CARDIAC SERVICES PROCEDURES Final Result documented in this encounter Visit Diagnoses Not on filedocumented in this encounter Care Teams Ripsaw Operator Relationship Specialty Start Date End Date Christine Foy MD [address] [place] [address] PCP - General 11/11/12 01/28/25 Bobby Victoria, [address] [place] [address] [place] [address] PCP - General Internal Medicine 01/29/25 documented as of this encounter
--- OUTSIDE RECORDS SUMMARY | 2025-05-15 15:05 | XMS_ITS | Clinical Summary ---
Author Organization [facility] Address [facility] [place] [address] Care Team Providers Care Board Certified Music Therapist Name Role Phone Unavailable Primary Care Provider [...]
--- OUTSIDE RECORDS SUMMARY | 2025-05-15 15:05 | XMS_ITS | Clinical Summary ---
Author Organization [facility] Address [address] [place] [address] Care Team Providers Care Steel Post Installer Name Role Phone Christine Foy MD Primary Care Provider [phone] Source Comments [facility],non-cass medical center Affiliates and Associated Physician Practices is amultiple site organization consisting of ambulatory clinics and hospital sitesin [place], [place], [place] and [place]. This disclosure is being madepursuant to the Care Everywhere program and may not contain all information available regarding this patient. Last updated 18.[facility] Allergies Active Allergy Reactions Criticality Noted Date [...] on file Legal Sex Male 6:57 PM BROKER IN CHARGE Gender Identity Not on file Sexual Orientation [...] COLON CA SCREENING 1955 LIPID TESTING 1955 MEDICARE AWV 12 MONTHS 1955 HEPATITIS C SCREENING 03/16/1975 DTAP/TDAP/TD VACCINES [...] patient's age to complete this topic Insurance [facility] MEDICARE SELF PAY NO INSURANCE Member Subscriber Plan / Payer (Ef fective for All Dates) Name:Terry Cunningham Member ID:Not on file Relation to Subscriber:Not on file Name:TERRY CUNNINGHAM Subscriber ID:Not on file (Home) Address: [address] [place] [address] Payer ID:Not on file Group ID:Not on file Type:Self Pay Address: [place], [place] Care Teams Steel Post Installer Relationship Specialty Start Date End Date Christine Foy MD [address] [place] [address] PCP - General 06/16/18
--- OUTSIDE RECORDS SUMMARY | 2025-05-15 15:05 | XMS_ITS | Encounter Summary ---
Author Organization [facility] Healthcare Address [address] [place] [address] Care Team Providers Care Storage Worker Name Role Phone Bobby Victoria DO Primary Care Provider [phone] Encounter Details Date Type Department Care Team (Late st Contact Info) Description 2025 Orders Only [facility] Health Information Management [address] [place] [address] Terry Salas MD [address] [address] Social History Tobacco Use Types Packs/Day Years Used Date Smoking Tobacco: Former Cigarettes Smokeless Tobacco: Never Alcohol Use Standard Drinks/Week Comments Yes 0 (1 standard drink = 0.6 oz pur e alcohol) Sex and Gender Information Value Date Recorded Sex Assigned at Not on file Legal Sex Male 6:47 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
--- OUTSIDE RECORDS SUMMARY | 2025-05-15 15:05 | XMS_ITS | Clinical Summary ---
Author Organization [facility] [address] [facility] [address] Address [address] [place] [address] Care Team Providers Care Grain Sampler Name Role Phone Bobby Victoria DO Primary Care Provider [phone] Allergies Active Allergy Reactions Criticality Noted Date [...] Description 03/22/2025 10:45 AM CDT Office Visit [facility] Cardiology at [address] [place] [address] Terry Salas MD Pulmonary hypertension (HCC) (Primary Dx) 2025 Orders Only [facility] Health Information Management [address] [place] [address] Terry Salas MD from Last 3 Months [...] Asthma Hx Other Medical Metabolic syn Cardiomyopathy H/O prostate cancer COPD (chronic obstructive pulmonary disease) Arthritis Family History Medical History Relation Name [...] on file 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
[2025-05-15 19:04] LABS: Hematocrit 43.2 % (42.0-52.0); Hemoglobin 13.9 g/dL (14.0-18.0); Immature Granulocyte Percent A 0.5 % (0-0.5); Lymphocytes Absolute Auto 1.25 K/mm3 (0.9-3.2); Mean Corpuscular HGB Conc 32.2 g/dl (32-36); Mean Corpuscular Hemoglobin 26.9 pg (26-34); Mean Corpuscular Volume 83.6 fl (80-100); Nucleated Red Blood Cells Absolute Auto 0.000 K/mm3 (0.0-0.012); Nucleated Red Blood Cells Perc 0.0 % (0.0-0.2); Platelet Count Result 250 k/mm3 (150-375); Red Blood Count 5.17 M/mm3 (4.6-6.20); White Blood Count 6.5 K/mm3 (4.5-10.0)
[2025-05-15 19:24] LABS: Iron 47 ug/dL (49-181)
[2025-05-15 19:34] LABS: Percent Iron Saturation 12 % (20-50)
[2025-05-15 19:44] LABS: Alanine Aminotransferase 13 U/L (6-50); Albumin Level 4.4 g/dL (3.5-5.1); Alkaline Phosphatase 59 U/L (38-126); Anion Gap 8 mmol/L (4-12); Aspartate Amino Transferase 25 U/L (17-59); Bilirubin,Total 0.6 mg/dL (0.2-1.3); Blood Urea Nitrogen 12 mg/dL (9-20); Calcium 9.8 mg/dL (8.4-10.2); Carbon Dioxide 24 mmol/L (22-30); Chloride 95 mmol/L (98-107); Estimated Glomerular Filt Rate > 60; Glucose 81 mg/dL (65-110); Magnesium 2.0 mg/dL (1.6-2.3); Potassium 4.2 mmol/L (3.4-5.0); Sodium 127 mmol/L (137-145); Total Protein 7.4 g/dL (6.3-8.2)
[2025-05-15 20:05] LABS: Ferritin 26.50 ng/mL (11.1-264)
[2025-05-15 20:19] LABS: Thyroid Stimulating Hormone 1.160 uIU/mL (0.465-4.680)
[2025-05-15 20:30] LABS: Hemoglobin A1C 5.5 % (<5.7)
[2025-05-15 20:38] LABS: Vitamin B12 476.0 pg/mL (239-931)
== END 2025-05-15 14:39 | disposition home or self-care (01) ==
LOC: ANHGOSHLAB 14:39
PROVIDERS: PCP Internal Medicine; Visit Provider Clinical Nurse Specialist
DX: R06.09 Other forms of dyspnea (principal); E11.40 Type 2 diabetes mellitus with diabetic neuropathy, unspecified; E87.1 Hypo-osmolality and hyponatremia; D50.9 Iron deficiency anemia, unspecified; J44.9 Chronic obstructive pulmonary disease, unspecified; G25.81 Restless legs syndrome; R41.3 Other amnesia; Z79.4 Long term (current) use of insulin
CPT/HCPCS: 36415; 80053; 82607; 82728; 83036; 83540; 83550; 83735; 84443; 85025

== ENCOUNTER 2025-05-17 10:25 | Outpatient (CLI) | payer OTHER, MEDICARE, SELFPAY ==
--- NOTE | ~2025-05-17 | CT_ITS ---
EXAMINATION: CT diagnostic chest w con DATE: 05/17/2025 10:57 INDICATION: Solitary pulmonary nodule. TECHNIQUE: Computed tomography (CT) of the chest was performed with intravenous contrast. The dose-le ngth product was 447.65 mGy-cm. COMPARISON: 03/07/2024 FINDINGS: No enlarged mediastinal or hilar lymph nodes. There are a few nonenlarged, nonspecific mediastinal ly mph nodes similar to the prior study. Heart is not enlarged. There are coronary artery calcifications . Thoracic aorta is not aneurysmal. Mild atherosclerotic disease in the thoracic aorta. Visualized tr acheobronchial tree is patent. No pneumothorax. No pleural effusion. No free air in the diaphragm. No focal pulmonary consolidation. Stable 9 mm pulmonary nodule in the left lung apex. Redemonstration o f diffuse reticulonodular interstitial prominence relatively sparing the lung bases with mild extensi ve bilateral groundglass opacities as well. Probable subpleural sparing. Stable 4 mm pulmonary nodule in the anterior left upper lobe. No pneumothorax. No pleural effusion. No focal mass. Multilevel degenerative change in the visualized spine similar to the study from 03/07/2024. Bones appe ar osteopenic. IMPRESSION: 1. Stable 9 mm pulmonary nodule in the left lung apex dating back to 03/07/2024. A PET/CT or biopsy is recommended. 2. Stable 4 mm pulmonary nodule in the left upper lobe. Attention on follow-up chest CT imaging in 6 months . 3. Grossly stable diffuse upper lobe predominant interstitial lung disease. Differential includes but is not limited to sarcoid, hypersensitivity pneumonitis, pneumoconiosis. Correlate clinically. Reviewed, dictated and finalized at location A. IMPRESSION: 1. Stable 9 mm pulmonary nodule in the left lung apex dating back to 03/07/2024. A PET/CT or biopsy is recommended. 2. Stable 4 mm pulmonary nodule in the left upper lobe. Attention on follow-up chest CT imaging in 6 months . 3. Grossly stable diffuse upper lobe predominant interstitial lung disease. Dif ferential includes but is not limited to sarcoid, hypersensitivity pneumonitis, pneumoconiosis. Correlate clinically.
--- NOTE | ~2025-05-17 | US_ITS ---
EXAM: ABDOMEN ULTRASOUND HISTORY: R14.0 - Abdominal distension (gaseous) COMPARISON: None FINDINGS: LIVER: The liver is unremarkable in echogenicity and not enlarged. The portal vein is patent, demonstrating phasic hepatopedal flow. GALLBLADDER: The gallbladder is decompressed containing multiple shadowing stones.. No gallbladder wall thickening or pericholecystic fluid. BILE DUCTS: Common bile duct measures 0.5mm. PANCREAS: Limited evaluation of the pancreas secondary to overlying bowel gas SPLEEN: The spleen is unremarkable in echogenicity and size measuring 12 cm in longitudinal dimension . RIGHT KIDNEY: 10.7 cm. In length. No hydronephrosis or bulky renal calculi. LEFT KIDNEY: 11.3cm in length. No hydronephrosis or renal calculi. VASCULATURE : The abdominal aorta is nonaneurysmal. The IVC is patent. IMPRESSION: Evaluation of the pancreas is limited by overlying bowel gas. Cholelithiasis. Otherwise, unremarkable sonographic evaluation of the abdomen, as detailed above. If clinical suspicion persists, cross-sectional imaging (contrast enhanced CT examination of the abdo men and pelvis) is suggested for further evaluation. Reviewed, dictated and finalized at location A. IMPRESSION: Evaluation of the pancreas is limited by overlying bowel gas. Cholelithiasis. Otherwise, unremarkable sonographic evaluation of the abdomen, as detailed abov e. If clinical suspicion persists, cross-sectional imaging (contrast enhanced CT e xamination of the abdomen and pelvis) is suggested for further evaluation.
--- NOTE | ~2025-05-17 | MR_ITS ---
EXAMINATION: MR brain/brain stem wo/w con DATE: 05/17/2025 12:33 INDICATION: Amnesia TECHNIQUE: Magnetic resonance imaging (MRI) of the brain and brainstem was performed without and with 20 mL Multihance intravenous contrast. Sequences included sagittal and axial T1-weighted SE, axial d iffusion-weighted FS SE, axial 3D SWAN, axial T2-weighted FLAIR, and axial T2-weighted FSE. Postcontr ast axial and coronal T1-weighted SE was obtained. Apparent diffusion coefficient (ADC) maps were cre ated. COMPARISON: Brain MR dated 05/31/2012 FINDINGS: There are no areas of restricted diffusion to suggest acute infarction. No intracranial hemorrhage or abnormal intracranial mass lesion. There are scattered areas of nonspecific increased T2-weighted si gnal intensity in the cerebral white matter, predominantly involving the deep and periventricular whi te matter. There is a focus of susceptibility artifact centered along the margin of the anterior horn of the right lateral ventricle which could represent sequela of old blood products or calcification The ventricles are symmetric and normal in size with normal anatomic variant cavum septum pellucidum and vergae. There are no abnormal extra-axial fluid collections. Flow voids are seen in the cerebral arteries on the T2-weighted sequences consistent with their expected patency. Changes of bilateral in traocular lens replacement. Moderate mucosal thickening throughout the paranasal sinuses with fluid/m ucus nearly filling the left frontal sinus which appears similar to findings on prior study consisten t with chronic sinusitis. There are no areas of abnormal enhancement on the post contrast images. IMPRESSION: 1. Age-related changes the brain with moderate scattered nonspecific periventricular predominant whit e matter T2 hyperintensity consistent with chronic small vessel ischemic disease. No acute intracrani al process. 2. Small focus of susceptibility artifact along the frontal horn of the right lateral ventricle which could represent old blood products or calcification. 3. Chronic sinusitis with bubbly fluid/mucus in the left frontal sinus suspicious for superimposed ac rebeca sinusitis. Reviewed, dictated and finalized at location A. IMPRESSION: 1. Age-related changes the brain with moderate scattered nonspecific periventri cular predominant white matter T2 hyperintensity consistent with chronic small vessel ischemic disease. No acute intracranial process. 2. Small focus of susceptibility artifact along the frontal horn of the right l ateral ventricle which could represent old blood products or calcification. 3. Chronic sinusitis with bubbly fluid/mucus in the left frontal sinus suspicio us for superimposed acute sinusitis.
--- OUTSIDE RECORDS SUMMARY | 2025-05-17 10:42 | XMS_ITS | Encounter Summary ---
Author Organization [facility] Healthcare Address [address] [place] [address] Care Team Providers Care Trial Attorney Name Role Phone Christine Foy MD Primary Care Provider [phone] Bobby Victoria DO Primary Care Provider [phone] Encounter Details Date Type Department Care Team (Late st Contact Info) Description 12/19/2024 Orders Only [facility] Health Information Management [address] [place] [address] Scanning, Provider Social History Tobacco Use Types Packs/Day Years Used Date Smoking Tobacco: Former Cigarettes Smokeless Tobacco: Never Alcohol Use Standard Drinks/Week Comments Yes 0 (1 standard drink = 0.6 oz pur e alcohol) Sex and Gender Information Value Date Recorded Sex Assigned at Not on file 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
--- OUTSIDE RECORDS SUMMARY | 2025-05-17 10:42 | XMS_ITS | Clinical Summary ---
Author Organization [facility] [address] [facility] [address] Address [address] [place] [address] Care Team Providers Care Shuttle Final Inspector Name Role Phone Bobby Victoria DO Primary Care Provider [phone] Allergies Active Allergy Reactions Criticality Noted Date [...] Description 03/22/2025 10:45 AM CDT Office Visit [facility] Cardiology at [address] [place] [address] Terry Salas MD Pulmonary hypertension (HCC) (Primary Dx) 2025 Orders Only [facility] Health Information Management [address] [place] [address] Terry Salas MD from Last 3 Months [...] on file 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
--- OUTSIDE RECORDS SUMMARY | 2025-05-17 10:42 | XMS_ITS | Encounter Summary ---
Author Organization [facility] Healthcare Address [address] [place] [address] Care Team Providers Care Night Worker Name Role Phone Bobby Victoria DO Primary Care Provider [phone] Encounter Details Date Type Department Care Team (Late st Contact Info) Description 2025 Orders Only [facility] [place] Information Management [address] [place] [address] Terry Salas MD [address] [address] Social History Tobacco Use Types Packs/Day Years Used Date Smoking Tobacco: Former Cigarettes Smokeless Tobacco: Never Alcohol Use Standard Drinks/Week Comments Yes 0 (1 standard drink = 0.6 oz pur e alcohol) Sex and Gender Information Value Date Recorded Sex Assigned at Not on file 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
--- OUTSIDE RECORDS SUMMARY | 2025-05-17 10:42 | XMS_ITS | Clinical Summary ---
Author Organization [facility] Address [facility] [place] [address] Care Team Providers Care Online Services Manager Name Role Phone Unavailable Primary Care Provider [...]
--- OUTSIDE RECORDS SUMMARY | 2025-05-17 10:42 | XMS_ITS | Encounter Summary ---
Author Organization [facility] Healthcare Address [address] [place] [address] Care Team Providers Care Bridge Ironworker Helper Name Role Phone Christine Foy MD Primary Care Provider [phone] Bobby Victoria DO Primary Care Provider [phone] Encounter Details Date Type Department Care Team (Late st Contact Info) Description 01/26/2025 Orders Only [facility] [place] Information Management [address] [place] [address] Scanning, Provider Social History Tobacco Use Types Packs/Day Years Used Date Smoking Tobacco: Former Cigarettes Smokeless Tobacco: Never Alcohol Use Standard Drinks/Week Comments Yes 0 (1 standard drink = 0.6 oz pur e alcohol) Sex and Gender Information Value Date Recorded Sex Assigned at Not on file 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
--- OUTSIDE RECORDS SUMMARY | 2025-05-17 10:42 | XMS_ITS | Clinical Summary ---
Author Organization [facility] [employer] Address [address] [place] [address] Care Team Providers Care Aircraft Machinist Helper Name Role Phone Christine Foy MD Primary Care Provider [phone] Source Comments [facility] Affiliates and Associated Physician Practices is amultiple site organization consisting of ambulatory clinics and hospital sitesin [place], [place], [place] and [place]. This disclosure is being madepursuant to the Care Everywhere program and may not contain all information available regarding this patient. 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 Gender Identity Not on file Sexual Orientation [...] patient's age to complete this topic Insurance [facility] Address: [facility] [address] [place] [address] MEDICARE SELF PAY NO INSURANCE Member Subscriber Plan / Payer (Ef fective for All Dates) Name:Terry Cunningham Member ID:Not on file Relation to Subscriber:Not on file Name:TERRY CUNNINGHAM Subscriber ID:Not on file (Home) Address: [address] [place] [address] Payer ID:Not on file Group ID:Not on file Type:Self Pay Address: [place], [place] Care Teams Aircraft Machinist Helper Relationship Specialty Start Date End Date Christine Foy MD [address] [place] [address] PCP - General 06/16/18
--- OUTSIDE RECORDS SUMMARY | 2025-05-17 10:42 | XMS_ITS | Encounter Summary ---
Author Organization [facility] Healthcare Address [address] [place] [address] Care Team Providers Care Route Salesman And Driver Name Role Phone Christine Foy MD Primary Care Provider [phone] Bobby Victoria DO Primary Care Provider [phone] Encounter Details Date Type Department Care Team (Late st Contact Info) Description 02/01/2018 Orders Only [facility] [address] [place] [address] Scanning, Provider Social History Tobacco Use Types Packs/Day Years Used Date Smoking Tobacco: Former Cigarettes Q uit: 10/04/2011 Alcohol Use Standard Drinks/Week Comments Yes 0 (1 standard drink = 0.6 oz pur e alcohol) Sex and Gender Information Value Date Recorded Sex Assigned at Not on file 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
== END 2025-05-17 10:26 | disposition home or self-care (01) ==
PROVIDERS: PCP Internal Medicine; Visit Provider Nurse Practitioner
DX: R91.8 Other nonspecific abnormal finding of lung field (principal); J84.9 Interstitial pulmonary disease, unspecified; R14.0 Abdominal distension (gaseous); R41.3 Other amnesia
CPT/HCPCS: 70553; 71260; 76700; A9577; Q9967

== ENCOUNTER 2025-05-24 13:21 | Outpatient (CLI) | payer OTHER, MEDICARE, SELFPAY ==
--- OUTSIDE RECORDS SUMMARY | 2025-05-24 13:36 | XMS_ITS | Encounter Summary ---
Author Organization [facility] Healthcare Address [address] [place] [address] Care Team Providers Care Nut Picker Name Role Phone Bobby Victoria DO Primary Care Provider [phone] Encounter Details Date Type Department Care Team (Late st Contact Info) Description 2025 Orders Only [facility] [place] Information Management [address] [place] [address] Terry Salas MD [address] [address] Social History Tobacco Use Types Packs/Day Years Used Date Smoking Tobacco: Former Cigarettes Smokeless Tobacco: Never Alcohol Use Standard Drinks/Week Comments Yes 0 (1 standard drink = 0.6 oz pur e alcohol) Sex and Gender Information Value Date Recorded Sex Assigned at Not on file 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
--- OUTSIDE RECORDS SUMMARY | 2025-05-24 13:36 | XMS_ITS | Encounter Summary ---
Author Organization [facility] Healthcare Address [address] [place] [address] Care Team Providers Care Marble Coper Name Role Phone Christine Foy MD Primary Care Provider [phone] Bobby Victoria DO Primary Care Provider [phone] Encounter Details Date Type Department Care Team (Late st Contact Info) Description 12/19/2024 Orders Only [facility] [place] Information Management [address] [place] [address] Scanning, Provider Social History Tobacco Use Types Packs/Day Years Used Date Smoking Tobacco: Former Cigarettes Smokeless Tobacco: Never Alcohol Use Standard Drinks/Week Comments Yes 0 (1 standard drink = 0.6 oz pur e alcohol) Sex and Gender Information Value Date Recorded Sex Assigned at Not on file 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
--- OUTSIDE RECORDS SUMMARY | 2025-05-24 13:36 | XMS_ITS | Clinical Summary ---
Author Organization [facility] Address [facility] [place] [address] Care Team Providers Care Bale Coverer Name Role Phone Unavailable Primary Care Provider [...]
--- OUTSIDE RECORDS SUMMARY | 2025-05-24 13:36 | XMS_ITS | Encounter Summary ---
Author Organization [facility] Healthcare Address [address] [place] [address] Care Team Providers Care Children'S Ministries Director Name Role Phone Christine Foy MD Primary Care Provider [phone] Bobby Victoria DO Primary Care Provider [phone] Encounter Details Date Type Department Care Team (Late st Contact Info) Description 02/01/2018 Orders Only [facility] [place] Information Management [address] [place] [address] Scanning, Provider Social History Tobacco Use Types Packs/Day Years Used Date Smoking Tobacco: Former Cigarettes Q uit: 10/04/2011 Alcohol Use Standard Drinks/Week Comments Yes 0 (1 standard drink = 0.6 oz pur e alcohol) Sex and Gender Information Value Date Recorded Sex Assigned at Not on file 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
--- OUTSIDE RECORDS SUMMARY | 2025-05-24 13:36 | XMS_ITS | Encounter Summary ---
Author Organization [facility] Healthcare Address [address] [place] [address] Care Team Providers Care Warehouse Traffic Supervisor Name Role Phone Christine Foy MD Primary Care Provider [phone] Bobby Victoria DO Primary Care Provider [phone] Encounter Details Date Type Department Care Team (Late st Contact Info) Description 01/26/2025 Orders Only [facility] [place] Health Information Management [address] [place] [address] Scanning, Provider Social History Tobacco Use Types Packs/Day Years Used Date Smoking Tobacco: Former Cigarettes Smokeless Tobacco: Never Alcohol Use Standard Drinks/Week Comments Yes 0 (1 standard drink = 0.6 oz pur e alcohol) Sex and Gender Information Value Date Recorded Sex Assigned at Not on file 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
--- OUTSIDE RECORDS SUMMARY | 2025-05-24 13:36 | XMS_ITS | Clinical Summary ---
Author Organization [facility] [address] [facility] [address] Address [address] [place] [address] Care Team Providers Care Library Circulation Department Chief Name Role Phone Bobby Victoria DO Primary Care Provider [phone] Allergies Active Allergy Reactions Criticality Noted Date [...] Description 03/22/2025 10:45 AM CDT Office Visit [facility] Cardiology at [address] [place] [address] Terry Salas MD Pulmonary hypertension (HCC) (Primary Dx) 2025 Orders Only [facility] Health Information Management [address] [place] [address] Terry Salas MD from Last 3 Months [...] on file Legal Sex Male 6:47 AM EVP Gender Identity Not on file Sexual Orientation [...] from Last 3 Months Insurance MEDICARE MEDICARE [facility] Care Teams Library Circulation Department Chief Relationship Specialty Start Date End Date Bobby Victoria DO [address] [place] [address] [address] [place] [id number] PCP - General Internal Medicine 01/29/25
--- OUTSIDE RECORDS SUMMARY | 2025-05-24 13:36 | XMS_ITS | Clinical Summary ---
Author Organization [facility] [employer] Address [address] [place] [address] Care Team Providers Care Conveyor Line Bakery Worker Name Role Phone Christine Foy MD Primary Care Provider [phone] Source Comments [facility] Affiliates and Associated Physician Practices is amultiple site organization consisting of ambulatory clinics and hospital sitesin [place], [place], [place] and [place]. This disclosure is being madepursuant to the Care Everywhere program and may not contain all information available regarding this patient. 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 Gender Identity Not on file Sexual Orientation [...] patient's age to complete this topic Insurance [facility] MEDICARE SELF PAY NO INSURANCE Member Subscriber Plan / Payer (Ef fective for All Dates) Name:Terry Cunningham Member ID:Not on file Relation to Subscriber:Not on file Name:TERRY CUNNINGHAM Subscriber ID:Not on file (Home) Address: [address] [place] [address] Payer ID:Not on file Group ID:Not on file Type:Self Pay Address: [place], [place] Care Teams Conveyor Line Bakery Worker Relationship Specialty Start Date End Date Christine Foy MD [address] [place] [address] PCP - General 06/16/18
[2025-05-24 16:32] LABS: Anion Gap 8 mmol/L (4-12); Blood Urea Nitrogen 8 mg/dL (9-20); Calcium 9.7 mg/dL (8.4-10.2); Carbon Dioxide 23 mmol/L (22-30); Chloride 98 mmol/L (98-107); Estimated Glomerular Filt Rate > 60; Glucose 116 mg/dL (65-110); Potassium 4.0 mmol/L (3.4-5.0); Sodium 129 mmol/L (137-145)
== END 2025-05-24 13:22 | disposition home or self-care (01) ==
LOC: ANHGOSHLAB 13:24
PROVIDERS: PCP Internal Medicine; Visit Provider Nurse Practitioner
DX: E87.1 Hypo-osmolality and hyponatremia (principal)
CPT/HCPCS: 36415; 80048

== ENCOUNTER 2025-06-21 11:57 | Outpatient (CLI) | payer OTHER, SELFPAY ==
--- NOTE | ~2025-06-21 | PE_ITS ---
EXAMINATION: PET skull to mid thigh DATE: 06/21/2025 13:49 INDICATION: Pulmonary nodules. Prostate cancer. TECHNIQUE: Blood glucose level was 95 mg/dL. 10.891 mCi of 18-fluorodeoxyglucose (18-FDG) was administered i.v. Low dose computed tomography (CT) images were acquired from the base of the brain to the proximal thighs for attenuation correction and anatomic localization. Automated exposure control was employed. Dose-length product (DLP) was 1076 mGy-cm. Positron emission tomography (PET) images were acquired in the same distribution. COMPARISON: PET/CT 06/11/2023, chest CT 05/17/2025, 03/07/2024 FINDINGS: Head/neck: There are no pathologically enlarged lymph nodes. Chest: The lungs demonstrate innumerable 1 mm nodules with an upper lung predominance. There is a 9 mm nodule in left upper lobe. There is a 5 mm nodule in left upper lobe. There is a 6 mm nodule in right upper lobe. There is no increased activity in these nodules. These nodules are stable from 06/11/2023. No pleural effusion. The heart size is normal. There are coronary artery calcifications. No pericardial effusion. The central pulmonary arteries are enlarged, consistent with pulmonary artery hypertension. There is bilateral gynecomastia. Abdomen/pelvis/proximal thighs: The liver and spleen are normal. There are gallstones in the gallbladder, which is contracted. The pancreas, adrenal glands, and kidneys are normal. There is no urolithiasis. There are radiopaque markers in the prostate. There is a left inguinal hernia containing fat. There is diverticulosis of the colon without evidence of diverticulitis. The appendix is normal. There are no dilated loops of bowel. There are no pathologically enlarged lymph nodes. There is no free intraperitoneal fluid. There is no osseous malignancy. IMPRESSION: 1. Pulmonary nodules measuring up to 9 mm without increased activity, stable from 06/11/2023, likely benign. 2. Chronic diffuse lung disease with an upper lung predominance. The differential diagnosis includes chronic mycobacterial or fungal disease, sarcoidosis, and silicosis or coal workers pneumoconiosis. Reviewed, dictated and finalized at location E. IMPRESSION: 1. Pulmonary nodules measuring up to 9 mm without increased activity, stable fr om 06/11/2023, likely benign. 2. Chronic diffuse lung disease with an upper lung predominance. The differenti al diagnosis includes chronic mycobacterial or fungal disease, sarcoidosis, and silicosis or coal workers pneumoconiosis.
--- OUTSIDE RECORDS SUMMARY | 2025-06-21 12:05 | XMS_ITS | Encounter Summary ---
Author Organization [facility] Healthcare Address [address] [place] [address] Care Team Providers Care Purchasing Department Clerk Name Role Phone Christine Foy MD Primary Care Provider [phone] Bobby Victoria DO Primary Care Provider [phone] Encounter Details Date Type Department Care Team (Late st Contact Info) Description 02/01/2018 Orders Only [facility] [place] Health Information Management [address] [place] [address] Scanning, Provider Social History Tobacco Use Types Packs/Day Years Used Date Smoking Tobacco: Former Cigarettes Q uit: 10/04/2011 Alcohol Use Standard Drinks/Week Comments Yes 0 (1 standard drink = 0.6 oz pur e alcohol) Sex and Gender Information Value Date Recorded Sex Assigned at Not on file 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
--- OUTSIDE RECORDS SUMMARY | 2025-06-21 12:05 | XMS_ITS | Encounter Summary ---
Author Organization [facility] Healthcare Address [address] [place] [address] Care Team Providers Care Process Technician Name Role Phone Christine Foy MD Primary Care Provider [phone] Bobby Victoria DO Primary Care Provider [phone] Encounter Details Date Type Department Care Team (Late st Contact Info) Description 01/26/2025 Orders Only [facility] Health Information Management [address] [place] [address] Scanning, Provider Social History Tobacco Use Types Packs/Day Years Used Date Smoking Tobacco: Former Cigarettes Smokeless Tobacco: Never Alcohol Use Standard Drinks/Week Comments Yes 0 (1 standard drink = 0.6 oz pur e alcohol) Sex and Gender Information Value Date Recorded Sex Assigned at Not on file 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
--- OUTSIDE RECORDS SUMMARY | 2025-06-21 12:05 | XMS_ITS | Clinical Summary ---
Author Organization [facility] Address [facility] [place] [address] Care Team Providers Care Machine Stemmer Name Role Phone Unavailable Primary Care Provider [...] Vaccines (1 of 2) 2007 COVID-19 Vaccine (1 - 2023-2 5 season) 2025 RSV Immunization or 60+ Years (1 - [...]
--- OUTSIDE RECORDS SUMMARY | 2025-06-21 12:05 | XMS_ITS | Encounter Summary ---
Author Organization [facility] Healthcare Address [address] [place] [address] Care Team Providers Care Design Leader Name Role Phone Bobby Victoria DO Primary Care Provider [phone] Encounter Details Date Type Department Care Team (Late st Contact Info) Description 2025 Orders Only [facility] Information Management [address] [place] [address] Terry Salas MD [address] [address] Social History Tobacco Use Types Packs/Day Years Used Date Smoking Tobacco: Former Cigarettes Smokeless Tobacco: Never Alcohol Use Standard Drinks/Week Comments Yes 0 (1 standard drink = 0.6 oz pur e alcohol) Sex and Gender Information Value Date Recorded Sex Assigned at Not on file 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
--- OUTSIDE RECORDS SUMMARY | 2025-06-21 12:05 | XMS_ITS | Encounter Summary ---
Author Organization [facility] Healthcare Address [address] [place] [address] Care Team Providers Care Kettle Cook Name Role Phone Christine Foy MD Primary Care Provider Bobby Victoria DO Primary Care Provider [phone] Encounter Details Date Type Department Care Team (Late st Contact Info) Description 12/19/2024 Orders Only [facility] Health Information Management [address] [place] [id number] Scanning, Provider Social History Tobacco Use Types Packs/Day Years Used Date Smoking Tobacco: Former Cigarettes Smokeless Tobacco: Never Alcohol Use Standard Drinks/Week Comments Yes 0 (1 standard drink = 0.6 oz pur e alcohol) Sex and Gender Information Value Date Recorded Sex Assigned at Not on file 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
--- OUTSIDE RECORDS SUMMARY | 2025-06-21 12:05 | XMS_ITS | Clinical Summary ---
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
--- OUTSIDE RECORDS SUMMARY | 2025-06-21 12:05 | XMS_ITS | Clinical Summary ---
Author Organization [facility] Address [address] [place] [address] Care Team Providers Care Reporting Developer Name Role Phone Christine Foy MD Primary Care Provider [phone] Source Comments [facility] Affiliates and Associated Physician Practices is amultiple site organization consisting of ambulatory clinics and hospital sitesin [place], [place], [place] and [place]. This disclosure is being madepursuant to the Care Everywhere program and may not contain all information available regarding this patient. 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 MEDICARE SELF PAY NO INSURANCE Member Subscriber Plan / Payer (Ef fective for All Dates) Name:Terry Cunningham Member ID:Not on file Relation to Subscriber:Not on file Name:TERRY CUNNINGHAM Subscriber ID:Not on file (Home) Address: [address] [place] [address] Payer ID:Not on file Group ID:Not on file Type:Self Pay Address: [place], [place] Care Teams Reporting Developer Relationship Specialty Start Date End Date Christine Foy MD [address] [place] [id number] PCP - General 06/16/18
== END 2025-06-21 11:58 | disposition home or self-care (01) ==
PROVIDERS: PCP Internal Medicine; Visit Provider Nurse Practitioner
DX: R91.1 Solitary pulmonary nodule (principal); J94.8 Other specified pleural conditions
CPT/HCPCS: 78815; A9552

== ENCOUNTER 2025-06-28 00:28 | Day surgery (SDC) | payer OTHER, SELFPAY ==
[2025-06-14 09:51] VITALS: BMI 35.6
[2025-06-28 08:59] VITALS: BP 132/77; PULSE 68; RESP 20; TEMP 36.4; O2SAT 97; BMI 32.5
--- NOTE | 2025-06-28 09:07 | WPDANESEPPF ---
Anes - Initial Pre Proc Eval Procedure: Operation Date: 06/28/25 10:00 Proposed Procedures p Screening Colonoscopy - Capo Porras MD Date/Time: 06/28/25 09:07 Surgeon: Capo Porras MD Pre Op Diagnosis: screening Patient Data Age: 70 Gender: M Height: 1.68 m Weight: 94.4 kg Last Vital Signs Temp 36.4 C 06/28/25 08:59 Pulse 68 06/28/25 08:59 Resp 20 06/28/25 08:59 BP 132/77 06/28/25 08:59 Pulse Ox 97 06/28/25 08:59 O2 Del Method Room Air 06/28/25 08:59 Allergies Allergy/AdvReac Type Severity Reaction Status Date / Time atropine Allergy Severe EYE Verified 06/28/25 08:57 SWELLING Home Medications ?Medication ?Instructions ?Recorded ?Confirmed ?Type cholecalciferol (vitamin D3) 50 2,000 unit PO DAILY 08/22/19 06/28/25 History mcg (2,000 unit) tablet (Vitamin D3) vitamin B complex 1 tablet PO DAILY 08/22/19 06/28/25 History ambrisentan 5 mg tablet 5 mg PO DAILY 04/20/22 06/28/25 History CPAP MASK RE-FIT #1 ea 05/17/23 06/14/25 Rx fluticasone fur. 100 mcg-umeclid 1 inh inhalation DAILY PRN 08/09/23 06/28/25 History 62.5 mcg-vilant 25 mcg shortness of breath or wheezing inhalat.powder (Trelegy Ellipta) gabapentin 300 mg capsule See Rx Instructions .Route 10/12/24 06/28/25 Rx .COMPLEX #120 caps tolterodine 2 mg tablet 2 mg PO QHS 10/23/24 06/28/25 History acetaminophen 500 mg capsule 500 mg PO Q6H PRN pain 12/11/24 06/14/25 History trazodone 50 mg tablet See Rx Instructions .Route 01/22/25 06/28/25 Rx .COMPLEX #60 tabs amlodipine 5 mg tablet 5 mg PO DAILY #90 tabs 02/01/25 06/28/25 Rx spironolactone 50 mg tablet See Rx Instructions .Route 04/20/25 06/28/25 Rx .COMPLEX #30 tabs Prosthetic supplies #1 ea 04/27/25 06/14/25 Rx sildenafil (pulm.hypertension) 20 20 mg PO BID 04/27/25 06/14/25 History mg tablet ondansetron HCl 4 mg tablet 4 mg PO Q6H PRN nausea and 05/30/25 06/14/25 Rx vomiting #20 tabs levalbuterol tartrate 45 1 puff inhalation Q6H PRN 06/14/25 06/14/25 History mcg/actuation aerosol inhaler shortness of breath or wheezing Patient hx anesthesia problems: none Family hx anesthesia problems: none Results Review: All pre-operative results and documents have been reviewed as part of the pre-operative evaluation. 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 Pulmonary HTN Carpal tunnel syndrome on both sides Convex pes valgus of 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 Rheumatoid arthritis, seronegative, multiple sites (~2017) Type 2 diabetes mellitus with diabetic neuropathy, with long-term current use of insulin Prostate cancer Sleep apnea COPD (chronic obstructive pulmonary disease) Dyspnea Vision loss Surgical History Surgical History History of cataract surgery both eyes Hx of BKA (~2012) Hx of transurethral resection of prostate Family History Family History Father Hypertension Family history of diabetes mellitus in first degree relative Family history of emphysema Diabetes mellitus Family history of chronic obstructive pulmonary disease Sibling Family history of heart disease in male family member before age 55 Family history of cardiovascular disease, Onset Age: 50 Acute myocardial infarction, Onset Age: 50 Carcinoma of colon 4th brother Mother Family history of osteoarthritis Family history of arthritis Grandparent Family history of liver disease Family history of condition Family history of malignant neoplasm of cervix Family history of coronary artery disease Family history of cardiovascular disease Family history of malignant neoplasm Other Family history of alcoholism Social History Social History Smoking packs per day: 1 Smoking cigarettes per day: 20.0 Years smoked: 30 Smoking pack-years: 30.00 Smoking status: Former smoker Tobacco type: cigarettes Smoking end date: 10/04/10 Additional smoking assessment comments: still smokes occ cigar Alcohol intake: current Drinks per week: 6 Substance use: current Substance use type: other Other substance usage details: THC gummy daily Last use: 05/02 Living arrangements: with family Additional living arrangements comments: Occupation/Education: retired Gender identity (if verbalized by the patient): Male Spiritual care concerns: No Anes - Eval Final PreProcedure Day of Procedure 06/28/25 09:07 Patient weight: obese Heart: regular rate and rhythm Lungs: clear to auscultation Airway: Mallampati scale class II Neurological: alert and oriented Last oral intake: >/= 8 hours ASA classification: IV Emergent: no Anesthetic plan: proceed Anesthesia type and monitoring: general GIVS and standard monitoring Results Review: All pre-operative results and documents have been reviewed as part of the pre-operative evaluation. Informed Consent: The patient's anesthetic plan and its attendant risks and benefits were discussed with the patient/family/POA. Questions were solicited and answers provided to the satisfaction of the patient/family/POA.
[2025-06-28] MEDS: LACTATED RINGERS 1,000 ML 150 ML IV CONT (09:12)
--- NOTE | 2025-06-28 09:39 | PM.HPGS ---
History of Present Illness History of Present Illness Consent: Risks, benefits, and alternatives have been discussed and questions answered. Patient agrees to proceed with procedure. Chief complaint: screening Narrative: Terry Taveras is a 70 year old male with + cologuard, last colonoscopy more than 10 years ago Review of Systems Review of Systems: All systems reviewed & are unremarkable except as noted in HPI and below PMFSH Past Medical History Medical History Nonunion of joint fusion Charcot's joint of foot, non-diabetic Clawtoe, acquired Hyponatremia Long-term current use of testosterone cypionate Arthropathy of ankle Gall bladder stones Fibrosing alveolitis Bilateral wrist pain Male hypogonadism COVID-19 History of malignant neoplasm of prostate Laceration of knee without complication Avulsion fracture of distal phalanx of finger Arthritis of wrist, left Encounter for orthopedic follow-up care 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 Pulmonary HTN Carpal tunnel syndrome on both sides Convex pes valgus of 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 Rheumatoid arthritis, seronegative, multiple sites (~2017) Type 2 diabetes mellitus with diabetic neuropathy, with long-term current use of insulin Prostate cancer Sleep apnea COPD (chronic obstructive pulmonary disease) Dyspnea Vision loss Surgical History Surgical History History of cataract surgery both eyes Hx of BKA (~2012) Hx of transurethral resection of prostate Family History Family History Father Hypertension Family history of diabetes mellitus in first degree relative Family history of emphysema Diabetes mellitus Family history of chronic obstructive pulmonary disease Sibling Family history of heart disease in male family member before age 55 Family history of cardiovascular disease, Onset Age: 50 Acute myocardial infarction, Onset Age: 50 Carcinoma of colon 4th brother Mother Family history of osteoarthritis Family history of arthritis Grandparent Family history of liver disease Family history of condition Family history of malignant neoplasm of cervix Family history of coronary artery disease Family history of cardiovascular disease Family history of malignant neoplasm Other Family history of alcoholism Social History Social History Smoking packs per day: 1 Smoking cigarettes per day: 20.0 Years smoked: 30 Smoking pack-years: 30.00 Smoking status: Former smoker Tobacco type: cigarettes Smoking end date: 10/04/10 Additional smoking assessment comments: still smokes occ cigar Alcohol intake: current Drinks per week: 6 Substance use: current Substance use type: other Other substance usage details: THC gummy daily Last use: 05/02 Living arrangements: with family Additional living arrangements comments: Occupation/Education: retired Gender identity (if verbalized by the patient): Male Spiritual care concerns: No Meds Home Medications and Allergies Home Medications ?Medication ?Instructions ?Recorded ?Confirmed ?Type cholecalciferol (vitamin D3) 50 2,000 unit PO DAILY 08/22/19 06/28/25 History mcg (2,000 unit) tablet (Vitamin D3) vitamin B complex 1 tablet PO DAILY 08/22/19 06/28/25 History ambrisentan 5 mg tablet 5 mg PO DAILY 04/20/22 06/28/25 History CPAP MASK RE-FIT #1 ea 05/17/23 06/14/25 Rx fluticasone fur. 100 mcg-umeclid 1 inh inhalation DAILY PRN 08/09/23 06/28/25 History 62.5 mcg-vilant 25 mcg shortness of breath or wheezing inhalat.powder (Trelegy Ellipta) gabapentin 300 mg capsule See Rx Instructions .Route 10/12/24 06/28/25 Rx .COMPLEX #120 caps tolterodine 2 mg tablet 2 mg PO QHS 10/23/24 06/28/25 History acetaminophen 500 mg capsule 500 mg PO Q6H PRN pain 12/11/24 06/14/25 History trazodone 50 mg tablet See Rx Instructions .Route 01/22/25 06/28/25 Rx .COMPLEX #60 tabs amlodipine 5 mg tablet 5 mg PO DAILY #90 tabs 02/01/25 06/28/25 Rx spironolactone 50 mg tablet See Rx Instructions .Route 04/20/25 06/28/25 Rx .COMPLEX #30 tabs Prosthetic supplies #1 ea 04/27/25 06/14/25 Rx sildenafil (pulm.hypertension) 20 20 mg PO BID 04/27/25 06/14/25 History mg tablet ondansetron HCl 4 mg tablet 4 mg PO Q6H PRN nausea and 05/30/25 06/14/25 Rx vomiting #20 tabs levalbuterol tartrate 45 1 puff inhalation Q6H PRN 06/14/25 06/14/25 History mcg/actuation aerosol inhaler shortness of breath or wheezing Allergies Allergy/AdvReac Type Severity Reaction Status Date / Time atropine Allergy Severe EYE Verified 06/28/25 08:57 SWELLING Vital Signs Vital Signs - 24 hr 06/28/25 08:59 Temperature 97.6 F Pulse Rate 68 Respiratory Rate 20 Blood Pressure 132/77 Pulse Oximetry 97 Oxygen Delivery Room Air Exam Const: General: comfortable and no acute distress HENMT: Face/Nose/Sinus: Normal nares present Eyes: General: appearance normal, both eyes and all related structures Neck: Neck: no JVD Resp: Auscultation: clear to auscultation bilaterally Cardio: Rate: regular rate Rhythm: regular rhythm GI: Inspection: non-distended GI Palp: Yes Soft to palpation Skin: General skin exam: normal color Neuro: Speech: normal speech Extrem: General: normal to inspection Psych: Mental Status: mental status grossly normal Assessment and Plan Assessment and plan (1) Positive colorectal cancer screening using Cologuard test: Code(s): R19.5 - Other fecal abnormalities Status: Acute Assessment and Plan: colonoscopy
--- NOTE | 2025-06-28 10:23 | S_PTH ---
PATIENT: Terry Taveras LOC: [facility]#:[id number] AGE/SX: 70/M ROOM: RE06/28/[address]: Capo Porras MD : 1955 BED: DIS: 06/28/2025 SPEC #: [id number] RECD: 06/28/25 11:04 STATUS: MELANIE REJaren #: [id number] JOHNATHAN: 06/28/25 10:[address]: Capo Porras DEPT: [facility] Surgical RECD BY: Estephania Manuel ENTERED: 06/28/25 11:06 SP TYPE: Surgical OTHR DR: Bobby Victoria DO Tissues: A - Colon Polypectomy B - Colon Polypectomy C - Colon Polypectomy D - Colon Polypectomy Procedures: Hematoxylin and Eosin Stain Gross and Microscopic Level 4 MLH1 MSH2 MSH6 PMS2
[2025-06-28 10:28] VITALS: BP 125/70; PULSE 66; RESP 20; O2SAT 99
[2025-06-28 10:38] VITALS: BP 137/66; PULSE 65; RESP 20; O2SAT 99
[2025-06-28 10:48] VITALS: BP 129/71; PULSE 65; RESP 20; O2SAT 99
== END 2025-06-28 11:05 | disposition home or self-care (01) ==
PROVIDERS: PCP Internal Medicine; Referring Provider Nurse Practitioner; Visit Provider Internal Medicine Gastroenterology
PROC: 0DJD8ZZ Inspection of Lower Intestinal Tract, Via Natural or Artificial Opening Endoscopic (ICD-10-PCS; CPT 45378; principal; 2025-06-28 10:00)
DX: C18.6 Malignant neoplasm of descending colon (principal); D12.0 Benign neoplasm of cecum; D12.3 Benign neoplasm of transverse colon; D12.2 Benign neoplasm of ascending colon; K64.8 Other hemorrhoids; K57.30 Diverticulosis of large intestine without perforation or abscess without bleeding; I10 Essential (primary) hypertension; E11.40 Type 2 diabetes mellitus with diabetic neuropathy, unspecified; G47.30 Sleep apnea, unspecified; J44.9 Chronic obstructive pulmonary disease, unspecified; E29.1 Testicular hypofunction; M19.032 Primary osteoarthritis, left wrist; M06.09 Rheumatoid arthritis without rheumatoid factor, multiple sites; F17.290 Nicotine dependence, other tobacco product, uncomplicated; F12.90 Cannabis use, unspecified, uncomplicated; E66.9 Obesity, unspecified; Z68.32 Body mass index [BMI] 32.0-32.9, adult; Z79.51 Long term (current) use of inhaled steroids; Z79.4 Long term (current) use of insulin; Z99.89 Dependence on other enabling machines and devices; Z98.890 Other specified postprocedural states; Z89.511 Acquired absence of right leg below knee; Z85.46 Personal history of malignant neoplasm of prostate; Z87.19 Personal history of other diseases of the digestive system; Z80.0 Family history of malignant neoplasm of digestive organs; Z80.49 Family history of malignant neoplasm of other genital organs; Z82.49 Family history of ischemic heart disease and other diseases of the circulatory system
CPT/HCPCS: 45385; 88305; 88342; J2003; J2704; J7120